=== PATIENT | female | born 1950 | race Caucasian/White ===

== ENCOUNTER 2016-03-12 18:57 | Emergency (ER) | payer OTHER ==
[~2016-03-12 18:57] MED LIST: ACET30TAB PO; ALBU83IN INH; ALEV220T26 PO; CEFD1CAP8 PO; CEFT500T3 PO; CELE20TA PO; CELE40TA PO; CIPR250T3 PO; COLA100C PO; DEXA2TA PO; DEXA4TA PO; DULC100C PO; DUONSOL NEB; FOLI1TAB2 PO; LACT20EL PO; LISI20TA PO; LOPR1TAB6 PO; MIRA3350 PO; MUCI600T34 PO; NICO14PA TD; ONDA1TAB16 PO; PRED10TA PO; PRED20TA PO; PROC5TA PO; SYMB16INH INH; TRAM50TA2 PO; TYLE500T78 PO; VITMTA PO; XANA0.5T PO
[2016-03-12] MEDS ORDERED: IPRATROPIUM 0.5MG/ALBUTEROL 2.5MG INH SOL UD 3ML (DUONEB)(J7620) As Ordered ONE (20:01)
[2016-03-12 20:05] LABS: MEAN CORPUSCULAR HEMOGLOBIN 28.1 pg (27.0-33.0); MEAN CORPUSCULAR HGB CONC 31.6 g/dl (32.0-36.5); MEAN CORPUSCULAR VOLUME 88.9 fl (80.0-96.0); PLATELET COUNT, AUTOMATED 160 k/mm3 (150-450); RED CELL DISTRIBUTION WIDTH 17.4 % (11.5-14.5); WHITE BLOOD COUNT 2.6 K/mm3 (4.0-10.0)
[2016-03-12 20:14] LABS: VENOUS BASE EXCESS 7.9 (-2.0-2.0); VENOUS O2 SATURATION 56.7 % (60.0-80.0); VENOUS PARTIAL PRESSURE CO2 63.6 mmHg (38.0-50.0); VENOUS PARTIAL PRESSURE O2 29.9 mmHg (30.0-50.0); VENOUS STANDARD HCO3 30.9 MEQ/L; VENOUS TOTAL CO2 36.8 MEQ/L (24.0-28.0)
[2016-03-12 20:26] LABS: ANION GAP 4 MEQ/L (8-16); BLOOD UREA NITROGEN 13 MG/DL (7-18); CALCIUM LEVEL 8.6 MG/DL (8.8-10.2); CARBON DIOXIDE LEVEL 37 MEQ/L (21-32); CHLORIDE LEVEL 97 MEQ/L (98-107); CREATININE FOR GFR 0.88 MG/DL (0.55-1.02); GLOMERULAR FILTRATION RATE > 60.0 (>45); GLUCOSE, FASTING 135 MG/DL (80-110); POTASSIUM SERUM 4.2 MEQ/L (3.5-5.1); SODIUM LEVEL 138 MEQ/L (136-145)
[2016-03-12 20:45] LABS: BASOPHILS 2 % (0-4); EOSINOPHILS 3 % (0-5)
[2016-03-12 20:47] LABS: ANISOCYTOSIS 1+; HYPOCHROMASIA 1+
--- NOTE | 2016-03-12 20:48 | REP ---
Clinical: Acute shortness of breath. Comparison: 01/28/2016. Findings: Diffuse chronic changes are appreciated. Superimposed coarsened vasculature and interstitial markings suggest the possibility of bronchitis as well as pulmonary venous congestion. Trace basilar atelectasis cannot be excluded. No definite effusion. No pneumothorax. Mediastinum and cardiac silhouette are stable. [id number] with tip in the SVC unchanged. Skeletal structures intact. Impression: Diffusely increased coarsened markings and pulmonary vasculature. Differential diagnosis includes bronchitis as well as pulmonary venous congestion and correlation is recommended. Signed by Christiano Joseph MD 03/12/2016 08:39 P
[2016-03-12] MEDS ORDERED: ISOVUE-370 76% 100ML VIAL (Q9967) As Ordered ONE (22:39)
--- NOTE | 2016-03-12 23:10 | REPUSA ---
CT angiogram of the chest Clinical statement: Chest pain and shortness of breath. Technique: Multiple axial CT images were obtained from the thoracic inlet through the upper abdomen a fter a bolus administration of nonionic intravenous contrast. Coronal and sagittal reconstructions we re also obtained. No comparison is available. Findings: The pulmonary arteries are well-opacified with contrast, with no intraluminal filling defec ts to suggest embolism. The thoracic aorta is unremarkable. Thyroid gland is within normal limits. Th ere is no thoracic lymphadenopathy. There are no pericardial or pleural effusions. There is mild diff use emphysema. There is left apical pleural thickening noted. Limited imaging of the upper abdomen is unremarkable. There are no suspicious osseous lesions. Impression: 1. No evidence of pulmonary embolism. 2. No acute infiltrates. 3. Mild diffuse emphysema. 4. Left apical pleural thickening.
--- NOTE | 2016-03-13 00:42 | EDDOCDS ---
Physician Documentation [facility] Name: Gypsy Mae Age: 66 yrs Sex: Female : 1950 Arrival Date: 03/12/2016 Time: 18:57 Bed 11 Private MD: Melva Monsivais Disposition: 03/13/16 00:20 Discharged to Home/Self Care. Impression: Generalized anxiety disorder, Shortness of breath. - Condition is Stable. - Discharge Instructions: Panic Attacks, Generalized Anxiety Disorder, Panic Attacks, [id number]. - Medication Reconciliation, Local Pharmacy Hours form. - Follow up: Melva Monsivais; When: As needed; Reason: Continuance of care. - Problem is an acute exacerbation. - Symptoms have improved. Historical: - Allergies: Latex (Hives); - Home Meds: 1. acetaminophen-codeine 300-30 mg Oral tab Q6h PRN 2. albuterol sulfate 2.5 mg /3 mL (0.083 %) Inhl nebu 3 mL 3 times per day 3. alprazolam 0.5 mg Oral tab 4 x's a day 4. Compazine 10 mg Oral tab prn 5. dexamethasone 4 mg Oral tab take 2 tabs bid day before and day after chemo 6. folic acid 1 mg Oral tab 1 tab once daily 7. lactulose 20 gram/30 mL Oral soln bid prn constipation 8. metoprolol tartrate 50 mg Oral tab once daily 9. ondansetron HCl 8 mg Oral tab every 8 hours 10. Symbicort 160-4.5 mcg/actuation inhalation HFAA 2 puffs 2 times per day 11. tramadol 50 mg Oral tab 1 tab every 6 hours - PMHx: Cancer, Lung - Left; Cancer, Lung - Right; Emphysema; - PSHx: bronchscopy; Hysterectomy; Appendectomy; Tonsillectomy; LLL resection; infusaport insertion; right eye tumor removal; - Social history: Smoking status: Patient uses tobacco products, light tobacco smoker. No barriers to communication noted, The patient speaks fluent Slovak, Speaks appropriately for age. - Family history: Not pertinent. - : The pt / caregiver states he / she is not on anticoagulants. Home medication list is obtained from [employer] import data. - Exposure Risk Screening:: None identified. Vital Signs: 03/12 18:59 BP 101 / 53; Pulse 116; Resp 18 S; Temp 99.6(O); Pulse Ox 84% on 4 lpm NC; Weight 45.36 gr2 kg / 100 lbs (R); Height 5 ft. 0 in. (152.40 cm) (R); Pain 08/04; 19:09 BP 126 / 68 (auto/); mlc 19:24 Pulse 106 MON; Pulse Ox 97% ; mlc 19:24 BP 126 / 62 (auto/); mlc 19:39 Pulse 106 MON; Pulse Ox 98% ; mlc 19:39 BP 123 / 62 (auto/); mlc 19:54 BP 110 / 64 (auto/); mlc 19:54 Pulse 102 MON; Pulse Ox 99% on 3 lpm NC; mlc 20:09 Pulse 104 MON; Pulse Ox 100% ; mlc 20:09 BP 118 / 71 (auto/); mlc 20:24 Pulse 106 MON; Pulse Ox 100% ; mlc 20:24 BP 124 / 72 (auto/); mlc 20:39 Pulse 114 MON; Pulse Ox 98% ; mlc 20:39 BP 122 / 66 (auto/); mlc 20:54 Pulse 118 MON; Pulse Ox 96% ; mlc 20:54 BP 128 / 68 (auto/); mlc 21:09 BP 122 / 64 (auto/); mlc 21:09 Pulse 118 MON; Pulse Ox 95% ; mlc 21:24 Pulse 120 MON; Pulse Ox 94% ; mlc 21:24 BP 110 / 59 (auto/); mlc 21:39 BP 110 / 63 (auto/); mlc 21:39 Pulse 114 MON; Pulse Ox 94% ; mlc 21:54 Pulse 112 MON; Pulse Ox 95% ; mlc 21:54 BP 110 / 55 (auto/); mlc 22:09 Pulse 112 MON; Pulse Ox 95% ; mlc 22:09 BP 98 / 58 (auto/); mlc 22:24 Pulse 110 MON; Pulse Ox 97% ; mlc 22:24 BP 111 / 64 (auto/); mlc 22:39 Pulse 108 MON; Pulse Ox 99% ; mlc 22:39 BP 110 / 63 (auto/); mlc 22:54 BP 123 / 64 (auto/); mlc 22:58 Pulse 104 MON; Pulse Ox 98% ; mlc 23:09 Pulse 102 MON; Pulse Ox 98% ; mlc 23:09 BP 112 / 57 (auto/); mlc 23:24 Pulse 104 MON; Pulse Ox 98% ; mlc 23:24 BP 121 / 66 (auto/); mlc 23:39 Pulse 106 MON; Pulse Ox 98% ; mlc 23:39 BP 113 / 65 (auto/); mlc 23:54 BP 116 / 64 (auto/); mlc 23:54 Pulse 106 MON; Pulse Ox 98% ; mlc 03/13 00:27 BP 108 / 62; Pulse 107; Resp 18; Temp 99.5(O); Pulse Ox 97% on 3 lpm NC; Pain 0/10; kyle 03/12 18:59 Body Mass Index 19.53 (45.36 kg, 152.40 cm) gr2 MDM: 03/12 19:40 -Blood Culture (Adults Only), peripheral from different site, or from device/port/PICC mm11 etc. if present ordered. 19:40 Scarfer/Pulse Ox/q 15 min VS ordered. mm11 19:40 IV Saline Lock ordered. mm11 19:40 Oxygen at 4L/Min NC or Home dosage ordered. mm11 19:40 Rhythm Strip to chart ordered. mm11 19:40 Call Respiratory ordered. mm11 19:40 Albuterol-Ipratropium 1 neb Nebulizer every 20 minutes x3 ordered. mm11 19:41 -Blood Culture Ordered. EDMS 19:41 B-Type Natiuretic Peptide Ordered. EDMS 19:41 Basic Metabolic Profile Ordered. EDMS 19:41 CBC with Diff Ordered. EDMS 19:41 Cardiac Injury Profile Ordered. EDMS 19:41 Troponin Ordered. EDMS 19:41 Venous Blood Gas (large pea green tube on ice) Ordered. EDMS 19:41 Chest, 1 View Ordered. EDMS 19:42 Call Respiratory complete. ml3 19:42 ECG WITH READING ER PHYS+CARDIAG ordered. EDMS 19:43 -Blood Culture (Adults Only), peripheral from different site, or from device/port/PICC ml3 etc. if present complete. 19:45 BLOOD CULTURES Ordered. EDMS 20:08 DIFFERENTIAL NO CHARGE Ordered. EDMS 20:08 PLATELET ESTIMATE Ordered. EDMS 20:10 Financial registration complete. gjb 20:13 [facility] Payment Agreement was scanned into [employer] and attached to record. gjb 20:33 Basic Metabolic Profile Reviewed. mm11 20:33 CBC with Diff Reviewed. mm11 20:33 Cardiac Injury Profile Reviewed. mm11 20:33 Venous Blood Gas (large pea green tube on ice) Reviewed. mm11 20:33 B-Type Natiuretic Peptide Reviewed. mm11 20:33 Troponin Reviewed. mm11 20:55 CT Chest Angio R/O PE Ordered. EDFL 22:15 CBC with Diff Reviewed. mm11 22:15 PLATELET ESTIMATE Reviewed. mm11 22:15 Chest, 1 View Reviewed. mm11 03/13 00:19 CT Chest Angio R/O PE Reviewed. mm11 Administered Medications: 03/12 19:40 CANCELLED (Other Intervention Used): Albuterol-Ipratropium 3 ml Inhalation once mm11 20:07 Drug: Albuterol-Ipratropium 1 neb [ipratropium-albuterol 0.5 mg-3 mg(2.5 mg base)/3 mL lf2 nebulization soln (1 neb)] Route: Nebulizer; 20:11 Drug: Albuterol-Ipratropium 1 neb [ipratropium-albuterol 0.5 mg-3 mg(2.5 mg base)/3 mL lf2 nebulization soln (1 neb)] Route: Nebulizer; 20:20 Drug: Albuterol-Ipratropium 1 neb [ipratropium-albuterol 0.5 mg-3 mg(2.5 mg base)/3 mL lf2 nebulization soln (1 neb)] Route: Nebulizer; Signatures: Dispatcher [employer] EDMS Deejay Espinal RN RN cz Lopresti, Mary-Elizabeth, Channel Supervisor Unit ml3 Jose David Rouse, DO mm11 Tasha Quiñones RN RN mlc Beck, Gabriela gjb Mary Saleem RT lf2 The chart was reviewed and I authenticate all verbal orders and agree with the evaluation and treatment provided.Corrections: (The following items were deleted from the chart) 19:40 19:40 Albuterol-Ipratropium 3 ml Inhalation once ordered. 11 mm11 Attachments: 20:13 [facility] Payment Agreement jose MTDD
--- NOTE | 2016-03-13 00:42 | EDDOCDS ---
Nurse's Notes [facility] Name: Gypsy Mae Age: 66 yrs Sex: Female : 1950 Arrival Date: 03/12/2016 Time: 18:57 Bed 11 Private MD: Melva Monsivais Diagnosis: Generalized anxiety disorder;Shortness of breath Presentation: 03/12 19:08 Presenting complaint: Patient states: increased difficulty breathing since this cz afternoon but has been getting worse over the last few days pt had chemo last put on a steroid which she has finished saw her primary for f/u this past saturday. Adult Sepsis Screening: The patient does not have new or worsening altered mentation. Patient's respiratory rate is less than 22. Systolic blood pressure is greater than 100. Patient has a qSOFA score of 0- Negative Sepsis Screen. Suicide/Homicide risk assessment- the patient denies having any suicidal and/or homicidal ideations and does not present with any other emotional, behavioral or mental health complaints. Status: Patient is not a press service reader or dependent. Transition of care: patient was not received from another setting of care. 19:08 Acuity: CHAO Level 3 cz 19:08 Method Of Arrival: Walkin/Carried/Asstd cz Triage Assessment: 19:12 General: Appears cachectic. Pain: Location: abdomen Pain currently is 7 out of 10 on a cz pain scale. HIV screening NA for this visit Offered previously. Historical: - Allergies: Latex (Hives); - Home Meds: 1. acetaminophen-codeine 300-30 mg Oral tab Q6h PRN 2. albuterol sulfate 2.5 mg /3 mL (0.083 %) Inhl nebu 3 mL 3 times per day 3. alprazolam 0.5 mg Oral tab 4 x's a day 4. Compazine 10 mg Oral tab prn 5. dexamethasone 4 mg Oral tab take 2 tabs bid day before and day after chemo 6. folic acid 1 mg Oral tab 1 tab once daily 7. lactulose 20 gram/30 mL Oral soln bid prn constipation 8. metoprolol tartrate 50 mg Oral tab once daily 9. ondansetron HCl 8 mg Oral tab every 8 hours 10. Symbicort 160-4.5 mcg/actuation inhalation HFAA 2 puffs 2 times per day 11. tramadol 50 mg Oral tab 1 tab every 6 hours - PMHx: Cancer, Lung - Left; Cancer, Lung - Right; Emphysema; - PSHx: bronchscopy; Hysterectomy; Appendectomy; Tonsillectomy; LLL resection; infusaport insertion; right eye tumor removal; - Social history: Smoking status: Patient uses tobacco products, light tobacco smoker. No barriers to communication noted, The patient speaks fluent Latvian, Speaks appropriately for age. - Family history: Not pertinent. - : The pt / caregiver states he / she is not on anticoagulants. Home medication list is obtained from [employer]. - Exposure Risk Screening:: None identified. Screenin/17 00:01 Screening information is obtained from the patient, family members. Fall risk: No risks mlc identified. Assistance ADL's: requires no assistance with activities of daily living. Abuse/DV Screen: The patient / caregiver reports he/she is: not in a situation that causes fear, pain or injury. Nutritional screening: No deficits noted. home support is adequate. 00:40 Advance Directives: There is no active DNR order. mlc Assessment: 03/12 19:30 General: Appears in no apparent distress, comfortable, Behavior is appropriate for age, mlc cooperative. Pain: Denies pain. Neurological: Level of Consciousness is awake, alert, Oriented to person, place, time. Cardiovascular: Heart tones S1 S2 present Chest pain is denied. Respiratory: Airway is patent Respiratory effort is even, unlabored, Respiratory pattern is regular, Breath sounds with wheezes expiratory bilaterally. Reports shortness of breath. Derm: Skin is pink, warm & dry. 20:20 Reassessment: Patient appears in no apparent distress at this time. no change since mlc prior. resp easy/unlabored. . 21:11 Reassessment: Patient appears in no apparent distress at this time. Patient states mlc feeling better. pt reports feeling better after breathing tx. resp easy/unlabored. family at bedside. . 22:59 General: Appears in no apparent distress, comfortable, pt returned from CT, tolerated mlc well. . 03/13 00:01 Reassessment: Patient appears in no apparent distress at this time. General: Appears mlc comfortable, to be sleeping. Respiratory: Airway is patent Respiratory effort is even, unlabored, Respiratory pattern is regular. 00:40 General: Appears in no apparent distress, comfortable, Behavior is cooperative. mlc Neurological: Level of Consciousness is awake, alert, Oriented to person, place, time. Respiratory: Airway is patent Respiratory effort is even, unlabored, Respiratory pattern is regular. Vital Signs: 03/12 18:59 BP 101 / 53; Pulse 116; Resp 18 S; Temp 99.6(O); Pulse Ox 84% on 4 lpm NC; Weight 45.36 gr2 kg (R); Height 5 ft. 0 in. (152.40 cm) (R); Pain 6/10; 19:09 BP 126 / 68 (auto/); mlc 19:24 Pulse 106 MON; Pulse Ox 97% ; mlc 19:24 BP 126 / 62 (auto/); mlc 19:39 Pulse 106 MON; Pulse Ox 98% ; mlc 19:39 BP 123 / 62 (auto/); mlc 19:54 BP 110 / 64 (auto/); mlc 19:54 Pulse 102 MON; Pulse Ox 99% on 3 lpm NC; mlc 20:09 Pulse 104 MON; Pulse Ox 100% ; mlc 20:09 BP 118 / 71 (auto/); mlc 20:24 Pulse 106 MON; Pulse Ox 100% ; mlc 20:24 BP 124 / 72 (auto/); mlc 20:39 Pulse 114 MON; Pulse Ox 98% ; mlc 20:39 BP 122 / 66 (auto/); mlc 20:54 Pulse 118 MON; Pulse Ox 96% ; mlc 20:54 BP 128 / 68 (auto/); mlc 21:09 BP 122 / 64 (auto/); mlc 21:09 Pulse 118 MON; Pulse Ox 95% ; mlc 21:24 Pulse 120 MON; Pulse Ox 94% ; mlc 21:24 BP 110 / 59 (auto/); mlc 21:39 BP 110 / 63 (auto/); mlc 21:39 Pulse 114 MON; Pulse Ox 94% ; mlc 21:54 Pulse 112 MON; Pulse Ox 95% ; mlc 21:54 BP 110 / 55 (auto/); mlc 22:09 Pulse 112 MON; Pulse Ox 95% ; mlc 22:09 BP 98 / 58 (auto/); mlc 22:24 Pulse 110 MON; Pulse Ox 97% ; mlc 22:24 BP 111 / 64 (auto/); mlc 22:39 Pulse 108 MON; Pulse Ox 99% ; mlc 22:39 BP 110 / 63 (auto/); mlc 22:54 BP 123 / 64 (auto/); mlc 22:58 Pulse 104 MON; Pulse Ox 98% ; mlc 23:09 Pulse 102 MON; Pulse Ox 98% ; mlc 23:09 BP 112 / 57 (auto/); mlc 23:24 Pulse 104 MON; Pulse Ox 98% ; mlc 23:24 BP 121 / 66 (auto/); mlc 23:39 Pulse 106 MON; Pulse Ox 98% ; mlc 23:39 BP 113 / 65 (auto/); mlc 23:54 BP 116 / 64 (auto/); mlc 23:54 Pulse 106 MON; Pulse Ox 98% ; mlc 03/13 00:27 BP 108 / 62; Pulse 107; Resp 18; Temp 99.5(O); Pulse Ox 97% on 3 lpm NC; Pain 0/10; kyle 03/12 18:59 Body Mass Index 19.53 (45.36 kg, 152.40 cm) gr2 Vitals: 03/12 18:59 Log In Time: March 12, 2016 at 18:59. RN notified that patient meets Red Flag gr2 criteria. ED Course: 18:58 Patient visited by Paulette Reid. gr2 18:58 Patient moved to Waiting gr2 18:59 Unknown Pcp is Private Physician. gr2 18:59 Melva Monsivais is Private Physician. gr2 19:05 Tasha Quiñones,RN is Primary Nurse. kcs 19:05 Patient moved to 11 kcs 19:07 Patient visited by Paulette Reid. gr2 19:10 Triage Initiated cz 19:11 Pt greeted and oriented to ED. Patient advised of names of staff involved in care, kyle location of call diaz, wait times and NPO status. Accompanied by Family Member, Patient has correct armband on for positive identification. Placed in gown. Bed in low position. Call light in reach. Side rails up X2. quality assurance monitor on. Pulse ox on. NIBP on. 19:13 Patient visited by Alhaji Chan PCA. kb5 19:30 Jose David Rouse DO is Attending Physician. mm11 19:30 Patient visited by Jose David Rouse DO. mm11 19:39 Patient visited by Jose David Rouse DO. mm11 19:49 Patient moved to Radiology lino 19:49 EKG done. (by ED staff). Reviewed by Jose David Rouse DO. kyle 19:50 Patient visited by Mireya Hancock PCA. kyle 19:57 Troponin Sent. tm5 19:57 Cardiac Injury Profile Sent. tm5 19:57 CBC with Diff Sent. tm5 19:57 Basic Metabolic Profile Sent. tm5 19:57 B-Type Natiuretic Peptide Sent. tm5 19:57 -Blood Culture Sent. tm5 19:58 Venous Blood Gas (large pea green tube on ice) Sent. tm5 19:58 Inserted saline lock: 18 gauge in left antecubital area and blood collected. The tm5 patient tolerated the procedure well. Labs/Blood culture drawn. 20:11 Patient visited by Alhaji Chan PCA. kb5 20:13 [facility] Payment Agreement was scanned into [employer] and attached to record. gjb 20:18 Patient moved to 11 lino 20:52 BLOOD CULTURES Sent. kyle 20:52 DIFFERENTIAL NO CHARGE Sent. kyle 20:52 Labs/Blood culture drawn. kyle 21:12 Patient visited by Tasha Quiñones RN. mlc 21:25 Chest, 1 View Returned. EDMS 22:12 Patient visited by Mireya Hancock PCA. kyle 23:00 Patient visited by Tasha Quiñones RN. mlc 23:00 The patient / caregiver is instructed regarding the plan of care and ED course. mlc 01 00:02 Patient visited by Tasha Quiñones RN. mlc 00:02 CT Chest Angio R/O PE Returned. EDMS 00:20 Melva Monsivais is Referral Physician. mm11 00:27 Patient visited by Mireya Hancock PCA. kyle 00:40 Discontinued IV lock intact, bleeding controlled, pressure dressing applied, No mlc redness/swelling at site. No procedures done that require assistance. Administered Medications: 03/12 19:40 CANCELLED (Other Intervention Used): Albuterol-Ipratropium 3 ml Inhalation once mm11 20:07 Drug: Albuterol-Ipratropium 1 neb [ipratropium-albuterol 0.5 mg-3 mg(2.5 mg base)/3 mL lf2 nebulization soln (1 neb)] Route: Nebulizer; 20:11 Drug: Albuterol-Ipratropium 1 neb [ipratropium-albuterol 0.5 mg-3 mg(2.5 mg base)/3 mL lf2 nebulization soln (1 neb)] Route: Nebulizer; 20:20 Drug: Albuterol-Ipratropium 1 neb [ipratropium-albuterol 0.5 mg-3 mg(2.5 mg base)/3 mL lf2 nebulization soln (1 neb)] Route: Nebulizer; RT: 20:07 Initial Med Neb Given as ordered Patient was instructed and evaluated on procedure lf2 Patient tolerated procedure well without adverse effect. O2 via nasal cannula \T\ 2L/min. Respiratory: Respiratory effort is even, unlabored, relaxed, Respiratory pattern is regular symmetrical, Breath sounds are coarse bilaterally. Breath sounds are diminished bilaterally. Breath sounds with wheezes bilaterally. at expiration. 20:11 Subsequent Med Neb Given as ordered Patient tolerated procedure well without adverse lf2 effect. O2 via nasal cannula \T\ 2L/min. Respiratory: Breath sounds are diminished bilaterally. Breath sounds with wheezes bilaterally. at expiration. 20:20 Subsequent Med Neb Given as ordered Patient tolerated procedure well without adverse lf2 effect. O2 via nasal cannula \T\ 2L/min. Respiratory: Breath sounds are coarse bilaterally. Breath sounds with wheezes bilaterally. at expiration. Order Results: Lab Order: B-Type Natiuretic Peptide; SPEC'M 03/12/16 19:54 Test: BRAIN NATRIURETIC PEPTIDE; Value: 99.6; Range: <100; Units: PG/ML; Status: F Lab Order: Basic Metabolic Profile; SPEC'M 03/12/16 19:54 Test: GLUCOSE, FASTING; Value: 135; Range: 80-110; Abnormal: Above high normal; Units: MG/DL; Status: F Test: BLOOD UREA NITROGEN; Value: 13; Range: 7-18; Units: MG/DL; Status: F Test: CREATININE FOR GFR; Value: 0.88; Range: 0.55-1.02; Units: MG/DL; Status: F Test: GLOMERULAR FILTRATION RATE; Value: > 60.0; Range: >45; Status: F Test: SODIUM LEVEL; Value: 138; Range: 136-145; Units: MEQ/L; Status: F Test: POTASSIUM SERUM; Value: 4.2; Range: 3.5-5.1; Units: MEQ/L; Status: F Test: CHLORIDE LEVEL; Value: 97; Range: 98-107; Abnormal: Below low normal; Units: MEQ/L; Status: F Test: CARBON DIOXIDE LEVEL; Value: 37; Range: 21-32; Abnormal: Above high normal; Units: MEQ/L; Status: F Test: ANION GAP; Value: 4; Range: 8-16; Abnormal: Below low normal; Units: MEQ/L; Status: F Test: CALCIUM LEVEL; Value: 8.6; Range: 8.8-10.2; Abnormal: Below low normal; Units: MG/DL; Status: F Test Note: ; Units are mL/min/1.73 m2 Chronic Kidney Disease Staging per NKF: Stage I & II GFR >=60 Normal to Mildly Decreased Stage III GFR 30-59 Moderately Decreased Stage IV GFR 15-29 Severely Decreased Stage V GFR <15 Very Little GFR Left ESRD GFR <15 on STEEL FITTER Lab Order: CBC with Diff; SPEC'M 03/12/16 19:54 Test: WHITE BLOOD COUNT; Value: 2.6; Range: 4.0-10.0; Abnormal: Below low normal; Units: K/mm3; Status: F Test: RED BLOOD COUNT; Value: 3.17; Range: 4.00-5.40; Abnormal: Below low normal; Units: M/mm3; Status: F Test: HEMOGLOBIN; Value: 8.9; Range: 12.0-16.0; Abnormal: Below low normal; Units: g/dl; Status: F Test: HEMATOCRIT; Value: 28.2; Range: 36.0-47.0; Abnormal: Below low normal; Units: %; Status: F Test: MEAN CORPUSCULAR VOLUME; Value: 88.9; Range: 80.0-96.0; Units: fl; Status: F Test: MEAN CORPUSCULAR HEMOGLOBIN; Value: 28.1; Range: 27.0-33.0; Units: pg; Status: F Test: MEAN CORPUSCULAR HGB CONC; Value: 31.6; Range: 32.0-36.5; Abnormal: Below low normal; Units: g/dl; Status: F Test: RED CELL DISTRIBUTION WIDTH; Value: 17.4; Range: 11.5-14.5; Abnormal: Above high normal; Units: %; Status: F Test: PLATELET COUNT, AUTOMATED; Value: 160; Range: 150-450; Units: k/mm3; Status: F Test: NEUTROPHILS; Value: 58; Range: 35-75; Units: %; Status: F Test: LYMPHOCYTES; Value: 16; Range: 16-52; Units: %; Status: F Test: MONOCYTES; Value: 20; Range: 0-8; Abnormal: Above high normal; Units: %; Status: F Test: EOSINOPHILS; Value: 3; Range: 0-5; Units: %; Status: F Test: BASOPHILS; Value: 2; Range: 0-4; Units: %; Status: F Test: ATYPICAL LYMPH; Value: 1; Range: 0-5; Units: %; Status: F Test: HYPOCHROMASIA; Value: 1+; Status: F Test: BASOPHILIC STIPPLING; Value: 1+; Status: F Test: ANISOCYTOSIS; Value: 1+; Status: F Lab Order: Cardiac Injury Profile; SPEC'M 03/12/16 19:54 Test: CPK CREATINE PHOSPHOKINASE; Value: 16; Range: 26-192; Abnormal: Below low normal; Units: U/L; Status: F Test: CK-MB VALUE MASS; Value: 1.0; Range: 0.0-3.6; Units: NG/ML; Status: F Test: MB/CK RELATIVE INDEX; Value: 6.25; Range: < OR =4; Abnormal: Above high normal; Status: F Test Note: ; DIAGNOSIS CRITERIA MMB ng/ml Relative Index (RI) NON-AMI < or = 5 N/A MEEHAN ZONE > 5 < or = 4 AMI > 5 > 4 Lab Order: Troponin; SPEC'M 03/12/16 19:54 Test: TROPONIN I; Value: < 0.02; Range: < 0.10; Units: NG/ML; Status: F Test Note: ; Troponin I Reference Interval for [employer] LOCI: 99th Percentile= 0.00-0.045 ng/ml Risk Stratification: <= 0.10 ng/ml Decreased Risk for Adverse Clinical Events. 0.10-1.50 ng/ml Increased Risk for Adverse Clinical Events. Evaluation of additional criterion and/or repeat testing in 2-6 hours is suggested to rule out myocardial damage. >= 1.50 ng/ml Indicative of Myocardial Injury. Lab Order: Venous Blood Gas (large pea green tube on ice); SPEC'M 03/12/16 19:54 Test: VENOUS PH; Value: 7.357; Range: 7.330-7.430; Units: UNITS; Status: F Test: VENOUS PARTIAL PRESSURE CO2; Value: 63.6; Range: 38.0-50.0; Abnormal: Above high normal; Units: mmHg; Status: F Test: VENOUS PARTIAL PRESSURE O2; Value: 29.9; Range: 30.0-50.0; Abnormal: Below low normal; Units: mmHg; Status: F Test: VENOUS TOTAL CO2; Value: 36.8; Range: 24.0-28.0; Abnormal: Above high normal; Units: MEQ/L; Status: F Test: VENOUS HCO3; Value: 34.9; Range: 23.0-27.0; Abnormal: Above high normal; Units: MEQ/L; Status: F Test: VENOUS BASE EXCESS; Value: 7.9; Range: -2.0-2.0; Abnormal: Above high normal; Status: F Test: VENOUS STANDARD HCO3; Value: 30.9; Units: MEQ/L; Status: F Test: VENOUS O2 SATURATION; Value: 56.7; Range: 60.0-80.0; Abnormal: Below low normal; Units: %; Status: F Lab Order: PLATELET ESTIMATE; SPEC'M 03/12/16 19:54 Test: PLATELET ESTIMATE; Value: NORMAL; Range: NORMAL; Status: F Radiology Order: Chest, 1 View Test: Chest, 1 View REASON FOR EXAMINATION: Shortness of Breath; Clinical: Acute shortness of breath.; ; Comparison: 01/28/2016.; ; Findings:; Diffuse chronic changes are appreciated. Superimposed coarsened vasculature and; interstitial markings suggest the possibility of bronchitis as well as pulmonary; venous congestion. Trace basilar atelectasis cannot be excluded. No definite; effusion. No pneumothorax. Mediastinum and cardiac silhouette are stable.; [id number] with tip in the SVC unchanged. Skeletal structures intact.; ; Impression:; Diffusely increased coarsened markings and pulmonary vasculature. Differential; diagnosis includes bronchitis as well as pulmonary venous congestion and; correlation is recommended.; ; ; Signed by; Christiano Joseph MD 03/12/2016 08:39 P; Radiology Order: CT Chest Angio R/O PE Test: CT Chest Angio R/O PE REASON FOR EXAMINATION: Shortness of Breath; ; CT angiogram of the chest; Clinical statement: Chest pain and shortness of breath.; Technique: Multiple axial CT images were obtained from the thoracic inlet through the upper abdomen a; fter a bolus administration of nonionic intravenous contrast. Coronal and sagittal reconstructions we; re also obtained.; No comparison is available.; Findings: The pulmonary arteries are well-opacified with contrast, with no intraluminal filling defec; ts to suggest embolism. The thoracic aorta is unremarkable. Thyroid gland is within normal limits. Th; ere is no thoracic lymphadenopathy. There are no pericardial or pleural effusions. There is mild diff; use emphysema. There is left apical pleural thickening noted. Limited imaging of the upper abdomen is; unremarkable. There are no suspicious osseous lesions.; Impression:; 1. No evidence of pulmonary embolism.; 2. No acute infiltrates.; 3. Mild diffuse emphysema.; 4. Left apical pleural thickening.; ; Outcome: 23:00 CT Study completed. mlc 03/13 00:20 Discharge ordered by Provider. mm11 00:40 Discharge Assessment: Patient awake, alert and oriented x 3. No cognitive and/or mlc functional deficits noted. Patient verbalized understanding of disposition instructions. patient administered narcotics - no. The following High Risk Discharge criteria are identified: None. Discharged to home with family. Condition: good Condition: stable. Discharge instructions given to patient, Instructed on discharge instructions, Demonstrated understanding of instructions, Pt was receptive of discharge instructions/ teaching. Property sent home with patient. 00:41 Patient left the ED. mlc Signatures: Dispatcher [employer] EDMS Janie De Los Santos RN Deejay Dickson RN RN cz Bartlett, Floyd fab Bancroft, Kristopher, FINE ARTS INSTRUCTOR FINE ARTS INSTRUCTOR [email or web address] Jose David Rouse, DO mm11 Mireya Hancock, FINE ARTS INSTRUCTOR FINE ARTS INSTRUCTOR Paulette Ernst gr2 Tasha Quiñones RN RN Saniya Jones Lisa,RT RT lf2 Deanna Travis,LENNY GALVEZ tm5 MTDD
--- NOTE | 2016-03-14 07:51 | ECGEPIP ---
Stationary ECG Study [facility] - ED Test Date: 2016-03-12 Pat Name: MARIUM LEE Department: Room: - Gender: F Javascript Web Developer: susannah : 1950 Requested By: ZEENAT Alvarez Order Number: [id number] Reading MD: Jordyn Yañez Measurements Intervals [address] Rate: 102 P: 76 OH: 148 QRS: 78 QRSD: 93 T: 65 QT: 338 QTc: 442 Interpretive Statements SINUS TACHYCARDIA ABNORMAL RHYTHM ECG NSTTW ABNORMALITY BASELINE ARTIFACT LIMITS INTERPRETATION INCREASED RATE 01/28/16 Electronically Signed On 03-14-2016 7:51:20 EST by Jordyn Yañez
--- NOTE | 2016-03-15 01:42 | EDDOCDS ---
Nurse's Notes [facility] Name: Gypsy Mae Age: 66 yrs Sex: Female : 1950 Arrival Date: 03/12/2016 Time: 18:57 Bed 11 Private MD: Melva Monsivais Diagnosis: Generalized anxiety disorder;Shortness of breath Presentation: 03/12 19:08 Presenting complaint: Patient states: increased difficulty breathing since this cz afternoon but has been getting worse over the last few days pt had chemo last put on a steroid which she has finished saw her primary for f/u this past saturday. Adult Sepsis Screening: The patient does not have new or worsening altered mentation. Patient's respiratory rate is less than 22. Systolic blood pressure is greater than 100. Patient has a qSOFA score of 0- Negative Sepsis Screen. Suicide/Homicide risk assessment- the patient denies having any suicidal and/or homicidal ideations and does not present with any other emotional, behavioral or mental health complaints. Status: Patient is not a medical service technician or dependent. Transition of care: patient was not received from another setting of care. 19:08 Acuity: CHAO Level 3 cz 19:08 Method Of Arrival: Walkin/Carried/Asstd cz Triage Assessment: 19:12 General: Appears cachectic. Pain: Location: abdomen Pain currently is 7 out of 10 on a cz pain scale. HIV screening NA for this visit Offered previously. Historical: - Allergies: Latex (Hives); - Home Meds: 1. acetaminophen-codeine 300-30 mg Oral tab Q6h PRN 2. albuterol sulfate 2.5 mg /3 mL (0.083 %) Inhl nebu 3 mL 3 times per day 3. alprazolam 0.5 mg Oral tab 4 x's a day 4. Compazine 10 mg Oral tab prn 5. dexamethasone 4 mg Oral tab take 2 tabs bid day before and day after chemo 6. folic acid 1 mg Oral tab 1 tab once daily 7. lactulose 20 gram/30 mL Oral soln bid prn constipation 8. metoprolol tartrate 50 mg Oral tab once daily 9. ondansetron HCl 8 mg Oral tab every 8 hours 10. Symbicort 160-4.5 mcg/actuation inhalation HFAA 2 puffs 2 times per day 11. tramadol 50 mg Oral tab 1 tab every 6 hours - PMHx: Cancer, Lung - Left; Cancer, Lung - Right; Emphysema; - PSHx: bronchscopy; Hysterectomy; Appendectomy; Tonsillectomy; LLL resection; infusaport insertion; right eye tumor removal; - Social history: Smoking status: Patient uses tobacco products, light tobacco smoker. No barriers to communication noted, The patient speaks fluent Estonian, Speaks appropriately for age. - Family history: Not pertinent. - : The pt / caregiver states he / she is not on anticoagulants. Home medication list is obtained from [employer] import data. - Exposure Risk Screening:: None identified. Screenin/17 00:01 Screening information is obtained from the patient, family members. Fall risk: No risks mlc identified. Assistance ADL's: requires no assistance with activities of daily living. Abuse/DV Screen: The patient / caregiver reports he/she is: not in a situation that causes fear, pain or injury. Nutritional screening: No deficits noted. home support is adequate. 00:40 Advance Directives: There is no active DNR order. mlc Assessment: 03/12 19:30 General: Appears in no apparent distress, comfortable, Behavior is appropriate for age, mlc cooperative. Pain: Denies pain. Neurological: Level of Consciousness is awake, alert, Oriented to person, place, time. Cardiovascular: Heart tones S1 S2 present Chest pain is denied. Respiratory: Airway is patent Respiratory effort is even, unlabored, Respiratory pattern is regular, Breath sounds with wheezes expiratory bilaterally. Reports shortness of breath. Derm: Skin is pink, warm & dry. 20:20 Reassessment: Patient appears in no apparent distress at this time. no change since mlc prior. resp easy/unlabored. . 21:11 Reassessment: Patient appears in no apparent distress at this time. Patient states mlc feeling better. pt reports feeling better after breathing tx. resp easy/unlabored. family at bedside. . 22:59 General: Appears in no apparent distress, comfortable, pt returned from CT, tolerated mlc well. . 03/13 00:01 Reassessment: Patient appears in no apparent distress at this time. General: Appears mlc comfortable, to be sleeping. Respiratory: Airway is patent Respiratory effort is even, unlabored, Respiratory pattern is regular. 00:40 General: Appears in no apparent distress, comfortable, Behavior is cooperative. mlc Neurological: Level of Consciousness is awake, alert, Oriented to person, place, time. Respiratory: Airway is patent Respiratory effort is even, unlabored, Respiratory pattern is regular. Vital Signs: 03/12 18:59 BP 101 / 53; Pulse 116; Resp 18 S; Temp 99.6(O); Pulse Ox 84% on 4 lpm NC; Weight 45.36 gr2 kg (R); Height 5 ft. 0 in. (152.40 cm) (R); Pain 6/10; 19:09 BP 126 / 68 (auto/); mlc 19:24 Pulse 106 MON; Pulse Ox 97% ; mlc 19:24 BP 126 / 62 (auto/); mlc 19:39 Pulse 106 MON; Pulse Ox 98% ; mlc 19:39 BP 123 / 62 (auto/); mlc 19:54 BP 110 / 64 (auto/); mlc 19:54 Pulse 102 MON; Pulse Ox 99% on 3 lpm NC; mlc 20:09 Pulse 104 MON; Pulse Ox 100% ; mlc 20:09 BP 118 / 71 (auto/); mlc 20:24 Pulse 106 MON; Pulse Ox 100% ; mlc 20:24 BP 124 / 72 (auto/); mlc 20:39 Pulse 114 MON; Pulse Ox 98% ; mlc 20:39 BP 122 / 66 (auto/); mlc 20:54 Pulse 118 MON; Pulse Ox 96% ; mlc 20:54 BP 128 / 68 (auto/); mlc 21:09 BP 122 / 64 (auto/); mlc 21:09 Pulse 118 MON; Pulse Ox 95% ; mlc 21:24 Pulse 120 MON; Pulse Ox 94% ; mlc 21:24 BP 110 / 59 (auto/); mlc 21:39 BP 110 / 63 (auto/); mlc 21:39 Pulse 114 MON; Pulse Ox 94% ; mlc 21:54 Pulse 112 MON; Pulse Ox 95% ; mlc 21:54 BP 110 / 55 (auto/); mlc 22:09 Pulse 112 MON; Pulse Ox 95% ; mlc 22:09 BP 98 / 58 (auto/); mlc 22:24 Pulse 110 MON; Pulse Ox 97% ; mlc 22:24 BP 111 / 64 (auto/); mlc 22:39 Pulse 108 MON; Pulse Ox 99% ; mlc 22:39 BP 110 / 63 (auto/); mlc 22:54 BP 123 / 64 (auto/); mlc 22:58 Pulse 104 MON; Pulse Ox 98% ; mlc 23:09 Pulse 102 MON; Pulse Ox 98% ; mlc 23:09 BP 112 / 57 (auto/); mlc 23:24 Pulse 104 MON; Pulse Ox 98% ; mlc 23:24 BP 121 / 66 (auto/); mlc 23:39 Pulse 106 MON; Pulse Ox 98% ; mlc 23:39 BP 113 / 65 (auto/); mlc 23:54 BP 116 / 64 (auto/); mlc 23:54 Pulse 106 MON; Pulse Ox 98% ; mlc 03/13 00:27 BP 108 / 62; Pulse 107; Resp 18; Temp 99.5(O); Pulse Ox 97% on 3 lpm NC; Pain 0/10; kyle 03/12 18:59 Body Mass Index 19.53 (45.36 kg, 152.40 cm) gr2 Vitals: 03/12 18:59 Log In Time: March 12, 2016 at 18:59. RN notified that patient meets Red Flag gr2 criteria. ED Course: 18:58 Patient visited by Paulette Reid. gr2 18:58 Patient moved to Waiting gr2 18:59 Unknown Pcp is Private Physician. gr2 18:59 Melva Monsivais is Private Physician. gr2 19:05 Tasha Quiñones,RN is Primary Nurse. kcs 19:05 Patient moved to 11 kcs 19:07 Patient visited by Paulette Reid. gr2 19:10 Triage Initiated cz 19:11 Pt greeted and oriented to ED. Patient advised of names of staff involved in care, kyle location of call diaz, wait times and NPO status. Accompanied by Family Member, Patient has correct armband on for positive identification. Placed in gown. Bed in low position. Call light in reach. Side rails up X2. k 9 police officer on. Pulse ox on. NIBP on. 19:13 Patient visited by Alhaji Chan PCA. kb5 19:30 Zeenat Rouse DO is Attending Physician. mm11 19:30 Patient visited by Zeenat Rouse DO. mm11 19:39 Patient visited by Zeenat Rouse DO. mm11 19:49 Patient moved to Radiology lino 19:49 EKG done. (by ED staff). Reviewed by Zeenat Rouse DO. kyle 19:50 Patient visited by Mireya Hancock PCA. kyle 19:57 Troponin Sent. tm5 19:57 Cardiac Injury Profile Sent. tm5 19:57 CBC with Diff Sent. tm5 19:57 Basic Metabolic Profile Sent. tm5 19:57 B-Type Natiuretic Peptide Sent. tm5 19:57 -Blood Culture Sent. tm5 19:58 Venous Blood Gas (large pea green tube on ice) Sent. tm5 19:58 Inserted saline lock: 18 gauge in left antecubital area and blood collected. The tm5 patient tolerated the procedure well. Labs/Blood culture drawn. 20:11 Patient visited by Alhaji Chan PCA. kb5 20:13 [facility] Payment Agreement was scanned into [employer] and attached to record. gjb 20:18 Patient moved to 11 lino 20:52 BLOOD CULTURES Sent. kyle 20:52 DIFFERENTIAL NO CHARGE Sent. kyle 20:52 Labs/Blood culture drawn. kyle 21:12 Patient visited by Tasha Quiñones RN. mlc 21:25 Chest, 1 View Returned. EDMS 22:12 Patient visited by Mireya Hancock PCA. kyle 23:00 Patient visited by Tasha Quiñones RN. mlc 23:00 The patient / caregiver is instructed regarding the plan of care and ED course. mlc 01 00:02 Patient visited by Tasha Quiñones RN. mlc 00:02 CT Chest Angio R/O PE Returned. EDMS 00:20 Melva Monsivais is Referral Physician. mm11 00:27 Patient visited by Mireya Hancock PCA. kyle 00:40 Discontinued IV lock intact, bleeding controlled, pressure dressing applied, No mlc redness/swelling at site. No procedures done that require assistance. 12:00 T-Sheet-- Draft Copy was scanned into [employer] and attached to record. gb 12:00 ECG/EKG was scanned into [employer] and attached to record. gb 12:00 Radiology Report was scanned into [employer] and attached to record. gb 03/14 08:22 EKG-ADULT Returned. EDMS Administered Medications: 03/12 19:40 CANCELLED (Other Intervention Used): Albuterol-Ipratropium 3 ml Inhalation once mm11 20:07 Drug: Albuterol-Ipratropium 1 neb [ipratropium-albuterol 0.5 mg-3 mg(2.5 mg base)/3 mL lf2 nebulization soln (1 neb)] Route: Nebulizer; 20:11 Drug: Albuterol-Ipratropium 1 neb [ipratropium-albuterol 0.5 mg-3 mg(2.5 mg base)/3 mL lf2 nebulization soln (1 neb)] Route: Nebulizer; 20:20 Drug: Albuterol-Ipratropium 1 neb [ipratropium-albuterol 0.5 mg-3 mg(2.5 mg base)/3 mL lf2 nebulization soln (1 neb)] Route: Nebulizer; RT: 20:07 Initial Med Neb Given as ordered Patient was instructed and evaluated on procedure lf2 Patient tolerated procedure well without adverse effect. O2 via nasal cannula \T\ 2L/min. Respiratory: Respiratory effort is even, unlabored, relaxed, Respiratory pattern is regular symmetrical, Breath sounds are coarse bilaterally. Breath sounds are diminished bilaterally. Breath sounds with wheezes bilaterally. at expiration. 20:11 Subsequent Med Neb Given as ordered Patient tolerated procedure well without adverse lf2 effect. O2 via nasal cannula \T\ 2L/min. Respiratory: Breath sounds are diminished bilaterally. Breath sounds with wheezes bilaterally. at expiration. 20:20 Subsequent Med Neb Given as ordered Patient tolerated procedure well without adverse lf2 effect. O2 via nasal cannula \T\ 2L/min. Respiratory: Breath sounds are coarse bilaterally. Breath sounds with wheezes bilaterally. at expiration. Order Results: Lab Order: -Blood Culture; SPEC'M 03/12/16 19:54 Test: BLOOD CULTURE; Value: No growth after 24 hours . All specimens observed; Status: F Test: BLOOD CULTURE; Value: for 5 days. Results final at that time.; Status: F Test: BLOOD CULTURE; Value: No Growth after 48 hours. All Specimens observed; Status: F Test: BLOOD CULTURE; Value: for 7 days. Results final at that time.; Status: F Lab Order: B-Type Natiuretic Peptide; SPEC'M 03/12/16 19:54 Test: BRAIN NATRIURETIC PEPTIDE; Value: 99.6; Range: <100; Units: PG/ML; Status: F Lab Order: Basic Metabolic Profile; SPEC'M 03/12/16 19:54 Test: GLUCOSE, FASTING; Value: 135; Range: 80-110; Abnormal: Above high normal; Units: MG/DL; Status: F Test: BLOOD UREA NITROGEN; Value: 13; Range: 7-18; Units: MG/DL; Status: F Test: CREATININE FOR GFR; Value: 0.88; Range: 0.55-1.02; Units: MG/DL; Status: F Test: GLOMERULAR FILTRATION RATE; Value: > 60.0; Range: >45; Status: F Test: SODIUM LEVEL; Value: 138; Range: 136-145; Units: MEQ/L; Status: F Test: POTASSIUM SERUM; Value: 4.2; Range: 3.5-5.1; Units: MEQ/L; Status: F Test: CHLORIDE LEVEL; Value: 97; Range: 98-107; Abnormal: Below low normal; Units: MEQ/L; Status: F Test: CARBON DIOXIDE LEVEL; Value: 37; Range: 21-32; Abnormal: Above high normal; Units: MEQ/L; Status: F Test: ANION GAP; Value: 4; Range: 8-16; Abnormal: Below low normal; Units: MEQ/L; Status: F Test: CALCIUM LEVEL; Value: 8.6; Range: 8.8-10.2; Abnormal: Below low normal; Units: MG/DL; Status: F Test Note: ; Units are mL/min/1.73 m2 Chronic Kidney Disease Staging per NKF: Stage I & II GFR >=60 Normal to Mildly Decreased Stage III GFR 30-59 Moderately Decreased Stage IV GFR 15-29 Severely Decreased Stage V GFR <15 Very Little GFR Left ESRD GFR <15 on PUG [employer]PER[employer] HELPER Lab Order: CBC with Diff; SPEC'M 03/12/16 19:54 Test: WHITE BLOOD COUNT; Value: 2.6; Range: 4.0-10.0; Abnormal: Below low normal; Units: K/mm3; Status: F Test: RED BLOOD COUNT; Value: 3.17; Range: 4.00-5.40; Abnormal: Below low normal; Units: M/mm3; Status: F Test: HEMOGLOBIN; Value: 8.9; Range: 12.0-16.0; Abnormal: Below low normal; Units: g/dl; Status: F Test: HEMATOCRIT; Value: 28.2; Range: 36.0-47.0; Abnormal: Below low normal; Units: %; Status: F Test: MEAN CORPUSCULAR VOLUME; Value: 88.9; Range: 80.0-96.0; Units: fl; Status: F Test: MEAN CORPUSCULAR HEMOGLOBIN; Value: 28.1; Range: 27.0-33.0; Units: pg; Status: F Test: MEAN CORPUSCULAR HGB CONC; Value: 31.6; Range: 32.0-36.5; Abnormal: Below low normal; Units: g/dl; Status: F Test: RED CELL DISTRIBUTION WIDTH; Value: 17.4; Range: 11.5-14.5; Abnormal: Above high normal; Units: %; Status: F Test: PLATELET COUNT, AUTOMATED; Value: 160; Range: 150-450; Units: k/mm3; Status: F Test: NEUTROPHILS; Value: 58; Range: 35-75; Units: %; Status: F Test: LYMPHOCYTES; Value: 16; Range: 16-52; Units: %; Status: F Test: MONOCYTES; Value: 20; Range: 0-8; Abnormal: Above high normal; Units: %; Status: F Test: EOSINOPHILS; Value: 3; Range: 0-5; Units: %; Status: F Test: BASOPHILS; Value: 2; Range: 0-4; Units: %; Status: F Test: ATYPICAL LYMPH; Value: 1; Range: 0-5; Units: %; Status: F Test: HYPOCHROMASIA; Value: 1+; Status: F Test: BASOPHILIC STIPPLING; Value: 1+; Status: F Test: ANISOCYTOSIS; Value: 1+; Status: F Lab Order: Cardiac Injury Profile; SPEC'M 03/12/16 19:54 Test: CPK CREATINE PHOSPHOKINASE; Value: 16; Range: 26-192; Abnormal: Below low normal; Units: U/L; Status: F Test: CK-MB VALUE MASS; Value: 1.0; Range: 0.0-3.6; Units: NG/ML; Status: F Test: MB/CK RELATIVE INDEX; Value: 6.25; Range: < OR =4; Abnormal: Above high normal; Status: F Test Note: ; DIAGNOSIS CRITERIA MMB ng/ml Relative Index (RI) NON-AMI < or = 5 N/A MEEHAN ZONE > 5 < or = 4 AMI > 5 > 4 Lab Order: Troponin; [facility] 03/12/16 19:54 Test: TROPONIN I; Value: < 0.02; Range: < 0.10; Units: NG/ML; Status: F Test Note: ; Troponin I Reference Interval for Siemens Nebo LOCI: 99th Percentile= 0.00-0.045 ng/ml Risk Stratification: <= 0.10 ng/ml Decreased Risk for Adverse Clinical Events. 0.10-1.50 ng/ml Increased Risk for Adverse Clinical Events. Evaluation of additional criterion and/or repeat testing in 2-6 hours is suggested to rule out myocardial damage. >= 1.50 ng/ml Indicative of Myocardial Injury. Lab Order: Venous Blood Gas (large pea green tube on ice); [facility] 03/12/16 19:54 Test: VENOUS PH; Value: 7.357; Range: 7.330-7.430; Units: UNITS; Status: F Test: VENOUS PARTIAL PRESSURE CO2; Value: 63.6; Range: 38.0-50.0; Abnormal: Above high normal; Units: mmHg; Status: F Test: VENOUS PARTIAL PRESSURE O2; Value: 29.9; Range: 30.0-50.0; Abnormal: Below low normal; Units: mmHg; Status: F Test: VENOUS TOTAL CO2; Value: 36.8; Range: 24.0-28.0; Abnormal: Above high normal; Units: MEQ/L; Status: F Test: VENOUS HCO3; Value: 34.9; Range: 23.0-27.0; Abnormal: Above high normal; Units: MEQ/L; Status: F Test: VENOUS BASE EXCESS; Value: 7.9; Range: -2.0-2.0; Abnormal: Above high normal; Status: F Test: VENOUS STANDARD HCO3; Value: 30.9; Units: MEQ/L; Status: F Test: VENOUS O2 SATURATION; Value: 56.7; Range: 60.0-80.0; Abnormal: Below low normal; Units: %; Status: F Lab Order: BLOOD CULTURES; [facility] 03/12/16 20:51 Test: BLOOD CULTURE; Value: No growth after 24 hours . All specimens observed; Status: F Test: BLOOD CULTURE; Value: for 5 days. Results final at that time.; Status: F Test: BLOOD CULTURE; Value: No Growth after 48 hours. All Specimens observed; Status: F Test: BLOOD CULTURE; Value: for 7 days. Results final at that time.; Status: F Lab Order: PLATELET ESTIMATE; SPEC'M 03/12/16 19:54 Test: PLATELET ESTIMATE; Value: NORMAL; Range: NORMAL; Status: F Radiology Order: Chest, 1 View Test: Chest, 1 View REASON FOR EXAMINATION: Shortness of Breath; Clinical: Acute shortness of breath.; ; Comparison: 01/28/2016.; ; Findings:; Diffuse chronic changes are appreciated. Superimposed coarsened vasculature and; interstitial markings suggest the possibility of bronchitis as well as pulmonary; venous congestion. Trace basilar atelectasis cannot be excluded. No definite; effusion. No pneumothorax. Mediastinum and cardiac silhouette are stable.; Imivae-Z-Jxno with tip in the SVC unchanged. Skeletal structures intact.; ; Impression:; Diffusely increased coarsened markings and pulmonary vasculature. Differential; diagnosis includes bronchitis as well as pulmonary venous congestion and; correlation is recommended.; ; ; Signed by; Christiano Joseph MD 03/12/2016 08:39 P; Radiology Order: EKG-ADULT Test: EKG-ADULT REASON FOR EXAMINATION: Shortness of Breath; Stationary ECG Study; [facility] - ED; ; Test Date: 2016-03-12; Pat Name: GYPSY MAE Department:; Room: -; Gender: F Summer Associate: susannah; : 1950 Requested By: ZEENAT Alvarez; Order Number: [id number] Latasha MD: Jordyn Yañez; Measurements; Intervals Clarence; Rate: 102 P: 76; GA: 148 QRS: 78; QRSD: 93 T: 65; QT: 338; QTc: 442; Interpretive Statements; SINUS TACHYCARDIA; ABNORMAL RHYTHM ECG; NSTTW ABNORMALITY; BASELINE ARTIFACT LIMITS INTERPRETATION; INCREASED RATE 01/28/16; Electronically Signed On 03-14-2016 7:51:20 EST by Jordyn Yañez; Radiology Order: CT Chest Angio R/O PE Test: CT Chest Angio R/O PE REASON FOR EXAMINATION: Shortness of Breath; ; CT angiogram of the chest; Clinical statement: Chest pain and shortness of breath.; Technique: Multiple axial CT images were obtained from the thoracic inlet through the upper abdomen a; fter a bolus administration of nonionic intravenous contrast. Coronal and sagittal reconstructions we; re also obtained.; No comparison is available.; Findings: The pulmonary arteries are well-opacified with contrast, with no intraluminal filling defec; ts to suggest embolism. The thoracic aorta is unremarkable. Thyroid gland is within normal limits. Th; ere is no thoracic lymphadenopathy. There are no pericardial or pleural effusions. There is mild diff; use emphysema. There is left apical pleural thickening noted. Limited imaging of the upper abdomen is; unremarkable. There are no suspicious osseous lesions.; Impression:; 1. No evidence of pulmonary embolism.; 2. No acute infiltrates.; 3. Mild diffuse emphysema.; 4. Left apical pleural thickening.; ; Outcome: 23:00 CT Study completed. [facility] [place] 03/13 00:20 Discharge ordered by Provider. mm11 00:40 Discharge Assessment: Patient awake, alert and oriented x 3. No cognitive and/or mlc functional deficits noted. Patient verbalized understanding of disposition instructions. patient administered narcotics - no. The following High Risk Discharge criteria are identified: None. Discharged to home with family. Condition: good Condition: stable. Discharge instructions given to patient, Instructed on discharge instructions, Demonstrated understanding of instructions, Pt was receptive of discharge instructions/ teaching. Property sent home with patient. 00:41 Patient left the ED. [facility] [place] Signatures: Dispatcher [employer] EDMS Janie De Los Santos RN RN kcs Zecher, Calvin, RN RN cz Bartlett, Floyd fab Barnhardt, Gloria, Reg Reg gb Alhaji Chan, [employer]CHO[employer] ENGLISH TEACHER [employer] ENGLISH TEACHER kb5 Zeenat Rouse, DO mm11 Mireya Hancock, [employer]CHO[employer] ENGLISH TEACHER [employer] ENGLISH TEACHER Paulette Ernst gr2 Tasha Quiñones RN RN mlc Beck, Gabriela gjb Frederick, Lisa,RT RT lf2 Deanna Travis RN RN tm5 Chart Complete MTDD
--- NOTE | 2016-03-15 01:42 | EDDOCDS ---
Physician Documentation [facility] Name: Gypsy Mae Age: 66 yrs Sex: Female : 1950 Arrival Date: 03/12/2016 Time: 18:57 Bed 11 Private MD: Melva Monsivais Disposition: 03/13/16 00:20 Discharged to Home/Self Care. Impression: Generalized anxiety disorder, Shortness of breath. - Condition is Stable. - Discharge Instructions: Panic Attacks, Generalized Anxiety Disorder, Panic Attacks, [id number]. - Medication Reconciliation, Local Pharmacy Hours form. - Follow up: Melva Monsivais; When: As needed; Reason: Continuance of care. - Problem is an acute exacerbation. - Symptoms have improved. Historical: - Allergies: Latex (Hives); - Home Meds: 1. acetaminophen-codeine 300-30 mg Oral tab Q6h PRN 2. albuterol sulfate 2.5 mg /3 mL (0.083 %) Inhl nebu 3 mL 3 times per day 3. alprazolam 0.5 mg Oral tab 4 x's a day 4. Compazine 10 mg Oral tab prn 5. dexamethasone 4 mg Oral tab take 2 tabs bid day before and day after chemo 6. folic acid 1 mg Oral tab 1 tab once daily 7. lactulose 20 gram/30 mL Oral soln bid prn constipation 8. metoprolol tartrate 50 mg Oral tab once daily 9. ondansetron HCl 8 mg Oral tab every 8 hours 10. Symbicort 160-4.5 mcg/actuation inhalation HFAA 2 puffs 2 times per day 11. tramadol 50 mg Oral tab 1 tab every 6 hours - PMHx: Cancer, Lung - Left; Cancer, Lung - Right; Emphysema; - PSHx: bronchscopy; Hysterectomy; Appendectomy; Tonsillectomy; LLL resection; infusaport insertion; right eye tumor removal; - Social history: Smoking status: Patient uses tobacco products, light tobacco smoker. No barriers to communication noted, The patient speaks fluent Mac[place], Speaks appropriately for age. - Family history: Not pertinent. - : The pt / caregiver states he / she is not on anticoagulants. Home medication list is obtained from [employer] import data. - Exposure Risk Screening:: None identified. Vital Signs: 03/12 18:59 BP 101 / 53; Pulse 116; Resp 18 S; Temp 99.6(O); Pulse Ox 84% on 4 lpm NC; Weight 45.36 gr2 kg / 100 lbs (R); Height 5 ft. 0 in. (152.40 cm) (R); Pain 08/04; 19:09 BP 126 / 68 (auto/); mlc 19:24 Pulse 106 MON; Pulse Ox 97% ; mlc 19:24 BP 126 / 62 (auto/); mlc 19:39 Pulse 106 MON; Pulse Ox 98% ; mlc 19:39 BP 123 / 62 (auto/); mlc 19:54 BP 110 / 64 (auto/); mlc 19:54 Pulse 102 MON; Pulse Ox 99% on 3 lpm NC; mlc 20:09 Pulse 104 MON; Pulse Ox 100% ; mlc 20:09 BP 118 / 71 (auto/); mlc 20:24 Pulse 106 MON; Pulse Ox 100% ; mlc 20:24 BP 124 / 72 (auto/); mlc 20:39 Pulse 114 MON; Pulse Ox 98% ; mlc 20:39 BP 122 / 66 (auto/); mlc 20:54 Pulse 118 MON; Pulse Ox 96% ; mlc 20:54 BP 128 / 68 (auto/); mlc 21:09 BP 122 / 64 (auto/); mlc 21:09 Pulse 118 MON; Pulse Ox 95% ; mlc 21:24 Pulse 120 MON; Pulse Ox 94% ; mlc 21:24 BP 110 / 59 (auto/); mlc 21:39 BP 110 / 63 (auto/); mlc 21:39 Pulse 114 MON; Pulse Ox 94% ; mlc 21:54 Pulse 112 MON; Pulse Ox 95% ; mlc 21:54 BP 110 / 55 (auto/); mlc 22:09 Pulse 112 MON; Pulse Ox 95% ; mlc 22:09 BP 98 / 58 (auto/); mlc 22:24 Pulse 110 MON; Pulse Ox 97% ; mlc 22:24 BP 111 / 64 (auto/); mlc 22:39 Pulse 108 MON; Pulse Ox 99% ; mlc 22:39 BP 110 / 63 (auto/); mlc 22:54 BP 123 / 64 (auto/); mlc 22:58 Pulse 104 MON; Pulse Ox 98% ; mlc 23:09 Pulse 102 MON; Pulse Ox 98% ; mlc 23:09 BP 112 / 57 (auto/); mlc 23:24 Pulse 104 MON; Pulse Ox 98% ; mlc 23:24 BP 121 / 66 (auto/); mlc 23:39 Pulse 106 MON; Pulse Ox 98% ; mlc 23:39 BP 113 / 65 (auto/); mlc 23:54 BP 116 / 64 (auto/); mlc 23:54 Pulse 106 MON; Pulse Ox 98% ; mlc 03/13 00:27 BP 108 / 62; Pulse 107; Resp 18; Temp 99.5(O); Pulse Ox 97% on 3 lpm NC; Pain 0/10; kyle 03/12 18:59 Body Mass Index 19.53 (45.36 kg, 152.40 cm) gr2 MDM: 03/12 19:40 -Blood Culture (Adults Only), peripheral from different site, or from device/port/PICC mm11 etc. if present ordered. 19:40 Automatic Fancy Machine Operator/Pulse Ox/q 15 min VS ordered. mm11 19:40 IV Saline Lock ordered. mm11 19:40 Oxygen at 4L/Min NC or Home dosage ordered. mm11 19:40 Rhythm Strip to chart ordered. mm11 19:40 Call Respiratory ordered. mm11 19:40 Albuterol-Ipratropium 1 neb Nebulizer every 20 minutes x3 ordered. mm11 19:41 -Blood Culture Ordered. EDMS 19:41 B-Type Natiuretic Peptide Ordered. EDMS 19:41 Basic Metabolic Profile Ordered. EDMS 19:41 CBC with Diff Ordered. EDMS 19:41 Cardiac Injury Profile Ordered. EDMS 19:41 Troponin Ordered. EDMS 19:41 Venous Blood Gas (large pea green tube on ice) Ordered. EDMS 19:41 Chest, 1 View Ordered. EDMS 19:42 Call Respiratory complete. ml3 19:42 ECG WITH READING ER PHYS+CARDIAG ordered. EDMS 19:43 -Blood Culture (Adults Only), peripheral from different site, or from device/port/PICC ml3 etc. if present complete. 19:45 BLOOD CULTURES Ordered. EDMS 20:08 DIFFERENTIAL NO CHARGE Ordered. EDMS 20:08 PLATELET ESTIMATE Ordered. EDMS 20:10 Financial registration complete. gjb 20:13 [place] Payment Agreement was scanned into [email or web address] and attached to record. gjb 20:33 Basic Metabolic Profile Reviewed. mm11 20:33 CBC with Diff Reviewed. mm11 20:33 Cardiac Injury Profile Reviewed. mm11 20:33 Venous Blood Gas (large pea green tube on ice) Reviewed. mm11 20:33 B-Type Natiuretic Peptide Reviewed. mm11 20:33 Troponin Reviewed. mm11 20:55 CT Chest Angio R/O PE Ordered. EDMS 22:15 CBC with Diff Reviewed. mm11 22:15 PLATELET ESTIMATE Reviewed. mm11 22:15 Chest, 1 View Reviewed. mm11 03/13 00:19 CT Chest Angio R/O PE Reviewed. mm11 12:00 T-Sheet-- Draft Copy was scanned into [email or web address] and attached to record. 12:00 ECG/EKG was scanned into [email or web address] and attached to record. gb 12:00 Radiology Report was scanned into [email or web address] and attached to record. gb 20:08 -Blood Culture Reviewed. ml Administered Medications: 03/12 19:40 CANCELLED (Other Intervention Used): Albuterol-Ipratropium 3 ml Inhalation once mm11 20:07 Drug: Albuterol-Ipratropium 1 neb [ipratropium-albuterol 0.5 mg-3 mg(2.5 mg base)/3 mL lf2 nebulization soln (1 neb)] Route: Nebulizer; 20:11 Drug: Albuterol-Ipratropium 1 neb [ipratropium-albuterol 0.5 mg-3 mg(2.5 mg base)/3 mL lf2 nebulization soln (1 neb)] Route: Nebulizer; 20:20 Drug: Albuterol-Ipratropium 1 neb [ipratropium-albuterol 0.5 mg-3 mg(2.5 mg base)/3 mL lf2 nebulization soln (1 neb)] Route: Nebulizer; Signatures: Dispatcher [employer] EDMS Alexi Ho MD MD ml Zecher, Calvin, RN RN cz Barnhardt, Gloria, Brian Frazier, Real Estate Representative Unit ml3 Jose David Rouse DO DO mm11 Tasha Quiñones RN RN mlc Beck, Gabriela gjb Mary Saleem RT lf2 The chart was reviewed and I authenticate all verbal orders and agree with the evaluation and treatment provided.Corrections: (The following items were deleted from the chart) 19:40 19:40 Albuterol-Ipratropium 3 ml Inhalation once ordered. mm11 mm11 Attachments: 20:13 [facility] Payment Agreement gjb 03/13 12:00 T-Sheet-- Draft Copy gb 12:00 ECG/EKG gb Chart Complete MTDD
--- NOTE | 2016-03-15 01:42 | EDDOCDS ---
Physician Documentation [facility] Name: Gypsy Mae Age: 66 yrs Sex: Female : 1950 Arrival Date: 03/12/2016 Time: 18:57 Bed 11 Private MD: Melva Monsivais Disposition: 03/13/16 00:20 Discharged to Home/Self Care. Impression: Generalized anxiety disorder, Shortness of breath. - Condition is Stable. - Discharge Instructions: Panic Attacks, Generalized Anxiety Disorder, Panic Attacks, [id number]. - Medication Reconciliation, Local Pharmacy Hours form. - Follow up: Melva Monsivais; When: As needed; Reason: Continuance of care. - Problem is an acute exacerbation. - Symptoms have improved. Historical: - Allergies: Latex (Hives); - Home Meds: 1. acetaminophen-codeine 300-30 mg Oral tab Q6h PRN 2. albuterol sulfate 2.5 mg /3 mL (0.083 %) Inhl nebu 3 mL 3 times per day 3. alprazolam 0.5 mg Oral tab 4 x's a day 4. Compazine 10 mg Oral tab prn 5. dexamethasone 4 mg Oral tab take 2 tabs bid day before and day after chemo 6. folic acid 1 mg Oral tab 1 tab once daily 7. lactulose 20 gram/30 mL Oral soln bid prn constipation 8. metoprolol tartrate 50 mg Oral tab once daily 9. ondansetron HCl 8 mg Oral tab every 8 hours 10. Symbicort 160-4.5 mcg/actuation inhalation HFAA 2 puffs 2 times per day 11. tramadol 50 mg Oral tab 1 tab every 6 hours - PMHx: Cancer, Lung - Left; Cancer, Lung - Right; Emphysema; - PSHx: bronchscopy; Hysterectomy; Appendectomy; Tonsillectomy; LLL resection; infusaport insertion; right eye tumor removal; - Social history: Smoking status: Patient uses tobacco products, light tobacco smoker. No barriers to communication noted, The patient speaks fluent Latvian, Speaks appropriately for age. - Family history: Not pertinent. - : The pt / caregiver states he / she is not on anticoagulants. Home medication list is obtained from [employer] import data. - Exposure Risk Screening:: None identified. Vital Signs: 03/12 18:59 BP 101 / 53; Pulse 116; Resp 18 S; Temp 99.6(O); Pulse Ox 84% on 4 lpm NC; Weight 45.36 gr2 kg / 100 lbs (R); Height 5 ft. 0 in. (152.40 cm) (R); Pain 08/04; 19:09 BP 126 / 68 (auto/); mlc 19:24 Pulse 106 MON; Pulse Ox 97% ; mlc 19:24 BP 126 / 62 (auto/); mlc 19:39 Pulse 106 MON; Pulse Ox 98% ; mlc 19:39 BP 123 / 62 (auto/); mlc 19:54 BP 110 / 64 (auto/); mlc 19:54 Pulse 102 MON; Pulse Ox 99% on 3 lpm NC; mlc 20:09 Pulse 104 MON; Pulse Ox 100% ; mlc 20:09 BP 118 / 71 (auto/); mlc 20:24 Pulse 106 MON; Pulse Ox 100% ; mlc 20:24 BP 124 / 72 (auto/); mlc 20:39 Pulse 114 MON; Pulse Ox 98% ; mlc 20:39 BP 122 / 66 (auto/); mlc 20:54 Pulse 118 MON; Pulse Ox 96% ; mlc 20:54 BP 128 / 68 (auto/); mlc 21:09 BP 122 / 64 (auto/); mlc 21:09 Pulse 118 MON; Pulse Ox 95% ; mlc 21:24 Pulse 120 MON; Pulse Ox 94% ; mlc 21:24 BP 110 / 59 (auto/); mlc 21:39 BP 110 / 63 (auto/); mlc 21:39 Pulse 114 MON; Pulse Ox 94% ; mlc 21:54 Pulse 112 MON; Pulse Ox 95% ; mlc 21:54 BP 110 / 55 (auto/); mlc 22:09 Pulse 112 MON; Pulse Ox 95% ; mlc 22:09 BP 98 / 58 (auto/); mlc 22:24 Pulse 110 MON; Pulse Ox 97% ; mlc 22:24 BP 111 / 64 (auto/); mlc 22:39 Pulse 108 MON; Pulse Ox 99% ; mlc 22:39 BP 110 / 63 (auto/); mlc 22:54 BP 123 / 64 (auto/); mlc 22:58 Pulse 104 MON; Pulse Ox 98% ; mlc 23:09 Pulse 102 MON; Pulse Ox 98% ; mlc 23:09 BP 112 / 57 (auto/); mlc 23:24 Pulse 104 MON; Pulse Ox 98% ; mlc 23:24 BP 121 / 66 (auto/); mlc 23:39 Pulse 106 MON; Pulse Ox 98% ; mlc 23:39 BP 113 / 65 (auto/); mlc 23:54 BP 116 / 64 (auto/); mlc 23:54 Pulse 106 MON; Pulse Ox 98% ; mlc 03/13 00:27 BP 108 / 62; Pulse 107; Resp 18; Temp 99.5(O); Pulse Ox 97% on 3 lpm NC; Pain 0/10; kyle 03/12 18:59 Body Mass Index 19.53 (45.36 kg, 152.40 cm) gr2 MDM: 03/12 19:40 -Blood Culture (Adults Only), peripheral from different site, or from device/port/PICC mm11 etc. if present ordered. 19:40 Communications Writer/Pulse Ox/q 15 min VS ordered. mm11 19:40 IV Saline Lock ordered. mm11 19:40 Oxygen at 4L/Min NC or Home dosage ordered. mm11 19:40 Rhythm Strip to chart ordered. mm11 19:40 Call Respiratory ordered. mm11 19:40 Albuterol-Ipratropium 1 neb Nebulizer every 20 minutes x3 ordered. mm11 19:41 -Blood Culture Ordered. EDMS 19:41 B-Type Natiuretic Peptide Ordered. EDMS 19:41 Basic Metabolic Profile Ordered. EDMS 19:41 CBC with Diff Ordered. EDMS 19:41 Cardiac Injury Profile Ordered. EDMS 19:41 Troponin Ordered. EDMS 19:41 Venous Blood Gas (large pea green tube on ice) Ordered. EDMS 19:41 Chest, 1 View Ordered. EDMS 19:42 Call Respiratory complete. ml3 19:42 ECG WITH READING ER PHYS+CARDIAG ordered. EDMS 19:43 -Blood Culture (Adults Only), peripheral from different site, or from device/port/PICC ml3 etc. if present complete. 19:45 BLOOD CULTURES Ordered. EDMS 20:08 DIFFERENTIAL NO CHARGE Ordered. EDMS 20:08 PLATELET ESTIMATE Ordered. EDMS 20:10 Financial registration complete. gjb 20:13 [place] [place] was scanned into [employer] and attached to record. gjb 20:33 Basic Metabolic Profile Reviewed. mm11 20:33 CBC with Diff Reviewed. mm11 20:33 Cardiac Injury Profile Reviewed. mm11 20:33 Venous Blood Gas (large pea green tube on ice) Reviewed. mm11 20:33 B-Type Natiuretic Peptide Reviewed. mm11 20:33 Troponin Reviewed. mm11 20:55 CT Chest Angio R/O PE Ordered. EDMS 22:15 CBC with Diff Reviewed. mm11 22:15 PLATELET ESTIMATE Reviewed. mm11 22:15 Chest, 1 View Reviewed. mm11 03/13 00:19 CT Chest Angio R/O PE Reviewed. mm11 12:00 T-Sheet-- Draft Copy was scanned into [employer] and attached to record. 12:00 ECG/EKG was scanned into [employer] and attached to record. gb 12:00 Radiology Report was scanned into [employer] and attached to record. gb 20:08 -Blood Culture Reviewed. ml Administered Medications: 03/12 19:40 CANCELLED (Other Intervention Used): Albuterol-Ipratropium 3 ml Inhalation once mm11 20:07 Drug: Albuterol-Ipratropium 1 neb [ipratropium-albuterol 0.5 mg-3 mg(2.5 mg base)/3 mL lf2 nebulization soln (1 neb)] Route: Nebulizer; 20:11 Drug: Albuterol-Ipratropium 1 neb [ipratropium-albuterol 0.5 mg-3 mg(2.5 mg base)/3 mL lf2 nebulization soln (1 neb)] Route: Nebulizer; 20:20 Drug: Albuterol-Ipratropium 1 neb [ipratropium-albuterol 0.5 mg-3 mg(2.5 mg base)/3 mL lf2 nebulization soln (1 neb)] Route: Nebulizer; Signatures: Dispatcher [employer] EDMS Alexi Ho MD MD ml Zecher, Calvin, RN RN cz Barnhardt, Gloria, Brian Frazier, Slope Runner Unit ml3 Jose David Rouse DO DO mm11 Tasha Quiñones RN RN mlc Beck, Gabriela gjb Mary Saleem RT lf2 The chart was reviewed and I authenticate all verbal orders and agree with the evaluation and treatment provided.Corrections: (The following items were deleted from the chart) 19:40 19:40 Albuterol-Ipratropium 3 ml Inhalation once ordered. mm11 mm11 Attachments: 20:13 [place] [place] Agreement gjb 03/13 12:00 T-Sheet-- Draft Copy gb 12:00 ECG/EKG gb Chart Complete MTDD
== END 2016-03-13 00:41 | disposition home or self-care (01) ==
LOC: M ED 18:57
DX: F41.1 Generalized anxiety disorder (principal); R06.02 Shortness of breath; C34.91 Malignant neoplasm of unspecified part of right bronchus or lung; C34.92 Malignant neoplasm of unspecified part of left bronchus or lung; J43.9 Emphysema, unspecified; Z90.79 Acquired absence of other genital organ(s); Z90.89 Acquired absence of other organs; F17.200 Nicotine dependence, unspecified, uncomplicated; Z79.51 Long term (current) use of inhaled steroids; Z79.899 Other long term (current) drug therapy; Z91.040 Latex allergy status
CPT/HCPCS: 36415; 36600; 71010; 71275; 80048; 82550; 82553; 82803; 83880; 84484; 85025; 87040; 93005; 93041; 94640; 99285; Q9967

== ENCOUNTER 2017-03-20 13:04 | Inpatient (IN) | payer OTHER ==
[2017-03-20] MEDS: PANTOPRAZOLE 40MG INJ (PROTONIX) (C9113) IV (09:00)
[2017-03-20] MEDS: FOLIC ACID 1 MG TAB PO (09:00)
[2017-03-20] MEDS: LISINOPRIL *2.5 MG* TAB PO (09:00)
[2017-03-20] MEDS: CitaloPRAM (CeleXA) 20 MG TAB PO (09:00)
[2017-03-20] MEDS: LACTULOSE 20 GM/30 ML SYRUP UD PO (09:00)
[2017-03-20 14:16] LABS: BASO % 0.4 % (0.0-1.0); HEMATOCRIT 34.3 % (36.0-47.0); HEMOGLOBIN 8.8 g/dl (12.0-16.0); IMMATURE GRANULOCYTE % 0.8 % (0-0); LYMPH # 0.6 10^3/uL (1.5-4.5); LYMPH % 11.6 % (24.0-44.0); MEAN CORPUSCULAR HEMOGLOBIN 22.3 pg (27.0-33.0); MEAN CORPUSCULAR HGB CONC 25.7 g/dl (32.0-36.5); MEAN CORPUSCULAR VOLUME 86.8 fl (80.0-96.0); MONO # 0.2 10^3/uL (0.0-0.8); MONO % 4.5 % (0.0-5.0); NEUTROPHILS # 4.4 10^3/uL (1.8-7.7); NEUTROPHILS % 82.7 % (36.0-66.0); PLATELET COUNT, AUTOMATED 135 10^3/uL (150-450); RED BLOOD COUNT 3.95 10^6/uL (4.00-5.40); WHITE BLOOD COUNT 5.3 10^3/uL (4.0-10.0)
[2017-03-20] MEDS: IPRATROPIUM 0.5MG/ALBUTEROL 2.5MG INH SOL UD 3ML (DUONEB)(J7620) NEB ×4 (14:38→20:00)
[2017-03-20 14:42] LABS: BLOOD UREA NITROGEN 12 MG/DL (7-18); CALCIUM LEVEL 8.7 MG/DL (8.8-10.2); CHLORIDE LEVEL 93 MEQ/L (98-107); CPK CREATINE PHOSPHOKINASE 25 U/L (26-192); CREATININE FOR GFR 0.51 MG/DL (0.55-1.02); GLOMERULAR FILTRATION RATE > 60.0 (>45); GLUCOSE, FASTING 95 MG/DL (70-100); POTASSIUM SERUM 4.8 MEQ/L (3.5-5.1); SODIUM LEVEL 141 MEQ/L (136-145); TROPONIN I 0.02 NG/ML (< 0.10)
[2017-03-20 14:43] LABS: NT-PRO BNP 830 PG/ML (<125)
[2017-03-20 14:43] LABS: CK-MB VALUE MASS 1.3 NG/ML (0.0-3.6)
[2017-03-20 14:58] LABS: CARBON DIOXIDE LEVEL 50 MEQ/L (21-32)
[2017-03-20 15:21] LABS: ABG BASE EXCESS 24.9 (-2.0-2.0); ABG HCO3 57.9 MEQ/L (22.0-26.0); ABG O2 SATURATION 99.3 % (95.0-99.0); ABG STANDARD HCO3 49.6 MEQ/L (22.0-26.0); ABG TOTAL CO2 62.5 MEQ/L (23.0-31.0)
[2017-03-20] MEDS: AZITHROMYCIN INJ 500 MG, VIAL MATE ADAPTER 1 EACH in D5W 250 ML IV (15:24)
[2017-03-20 15:26] LABS: ABG pH (ARTERIAL) 7.203 UNITS (7.350-7.450)
[2017-03-20 15:27] LABS: ABG PARTIAL PRESSURE CO2 150.5 mmHg (35.0-45.0)
[2017-03-20 15:41] LABS: C REACTIVE PROTEIN QUANTITATIV 4.67 MG/DL (0.00-0.30)
[2017-03-20] MEDS ORDERED: BISACODYL 10 MG SUPP PR (16:30)
[2017-03-20] MEDS ORDERED: ONDANSETRON 4MG/2ML VIAL (J2405) IV (16:30)
[2017-03-20] MEDS: CEFTRIAXONE SOD 1 GM in APPROPRIATE DILUENT 1 EA IV (17:01)
[2017-03-20 17:41] LABS: ABG BASE EXCESS 23.6 (-2.0-2.0); ABG HCO3 53.3 MEQ/L (22.0-26.0); ABG O2 SATURATION 96.9 % (95.0-99.0); ABG PARTIAL PRESSURE O2 80.4 mmHg (75.0-100.0); ABG TOTAL CO2 56.5 MEQ/L (23.0-31.0); ABG pH (ARTERIAL) 7.329 UNITS (7.350-7.450)
[2017-03-20 17:42] LABS: ABG PARTIAL PRESSURE CO2 103.7 mmHg (35.0-45.0)
[2017-03-20] MEDS: methylPREDNISolone INJ 125 MG/2 ML VIAL (J2930) IV (19:38)
[2017-03-20] MEDS: NS 1,000 ML IV (19:46)
[2017-03-20] MEDS: MOXIFLOXACIN HCL 400 MG in APPROPRIATE DILUENT 1 EA IV (20:12)
[2017-03-20] MEDS: CARVedilol 3.125 MG TAB PO (20:13)
[2017-03-20] MEDS: ATORVASTATIN 20 MG TAB PO (20:13)
[2017-03-20 20:51] LABS: CPK CREATINE PHOSPHOKINASE 22 U/L (26-192); TROPONIN I 0.02 NG/ML (< 0.10)
[2017-03-20 20:52] LABS: MB/CK RELATIVE INDEX 4.54 (< OR =4)
[2017-03-20] MEDS: SYMBICORT 160/4.5MCG INHALER 6GM INH (21:26)
[2017-03-20] MEDS: HEPARIN SOD (PORCINE) 5000 UNITS/ML VIAL SC (21:32)
[2017-03-21] MEDS: methylPREDNISolone INJ 125 MG/2 ML VIAL (J2930) IV ×3 (01:27→17:22)
[2017-03-21] MEDS: IPRATROPIUM 0.5MG/ALBUTEROL 2.5MG INH SOL UD 3ML (DUONEB)(J7620) NEB ×4 (01:37→19:39)
[2017-03-21 02:45] LABS: CPK CREATINE PHOSPHOKINASE 28 U/L (26-192); MB/CK RELATIVE INDEX 3.57 (< OR =4); TROPONIN I < 0.02 NG/ML (< 0.10)
[2017-03-21 05:43] LABS: ABG BASE EXCESS 19.7 (-2.0-2.0); ABG HCO3 46.9 MEQ/L (22.0-26.0); ABG O2 SATURATION 93.5 % (95.0-99.0); ABG PARTIAL PRESSURE O2 61.9 mmHg (75.0-100.0); ABG STANDARD HCO3 43.7 MEQ/L (22.0-26.0); ABG TOTAL CO2 49.1 MEQ/L (23.0-31.0); ABG pH (ARTERIAL) 7.429 UNITS (7.350-7.450)
[2017-03-21 05:47] LABS: HEMATOCRIT 31.5 % (36.0-47.0); HEMOGLOBIN 8.4 g/dl (12.0-16.0); MEAN CORPUSCULAR HEMOGLOBIN 21.6 pg (27.0-33.0); MEAN CORPUSCULAR HGB CONC 26.7 g/dl (32.0-36.5); MEAN CORPUSCULAR VOLUME 81.2 fl (80.0-96.0); PLATELET COUNT, AUTOMATED 165 10^3/uL (150-450); RED BLOOD COUNT 3.88 10^6/uL (4.00-5.40); RED CELL DISTRIBUTION WIDTH 18.2 % (11.5-14.5); WHITE BLOOD COUNT 4.5 10^3/uL (4.0-10.0)
[2017-03-21 05:48] LABS: ABG PARTIAL PRESSURE CO2 72.4 mmHg (35.0-45.0)
[2017-03-21] MEDS: HEPARIN SOD (PORCINE) 5000 UNITS/ML VIAL SC ×3 (06:01→22:07)
[2017-03-21 06:41] LABS: ALBUMIN 2.6 GM/DL (3.2-5.2); ALKALINE PHOSPHATASE 61 U/L (45-117); ALT/SGPT 28 U/L (12-78); ANION GAP 4 MEQ/L (8-16); AST/SGOT 24 U/L (7-37); BILIRUBIN,TOTAL 0.3 MG/DL (0.2-1.0); BLOOD UREA NITROGEN 17 MG/DL (7-18); CALCIUM LEVEL 8.8 MG/DL (8.8-10.2); CARBON DIOXIDE LEVEL 42 MEQ/L (21-32); CHLORIDE LEVEL 93 MEQ/L (98-107); GLOMERULAR FILTRATION RATE > 60.0 (>45); GLUCOSE, FASTING 107 MG/DL (70-100); MAGNESIUM LEVEL 1.7 MG/DL (1.8-2.4); POTASSIUM SERUM 4.5 MEQ/L (3.5-5.1); SODIUM LEVEL 139 MEQ/L (136-145); TOTAL PROTEIN 6.9 GM/DL (6.4-8.2)
[2017-03-21] MEDS: SYMBICORT 160/4.5MCG INHALER 6GM INH ×2 (07:14→19:39)
[2017-03-21 07:54] LABS: RETIC HEMOGLOBIN EQUIVALENT 20.9 pg (24-36); RETICULOCYTE # 81.6 10^9/L (17-77); RETICULOCYTE % 2.2 % (0.5-1.5)
[2017-03-21] MEDS: LACTULOSE 20 GM/30 ML SYRUP UD PO (08:04)
[2017-03-21] MEDS: MAG SULF 1GM/100ML (MAG RUN) 1 GM in APPROPRIATE DILUENT 1 EA IV (08:04)
[2017-03-21] MEDS: PANTOPRAZOLE 40MG INJ (PROTONIX) (C9113) IV (08:04)
[2017-03-21] MEDS: FOLIC ACID 1 MG TAB PO (08:05)
[2017-03-21] MEDS: CitaloPRAM (CeleXA) 20 MG TAB PO (08:05)
[2017-03-21] MEDS: LISINOPRIL *2.5 MG* TAB PO (08:05)
[2017-03-21] MEDS: CARVedilol 3.125 MG TAB PO ×2 (08:06→21:17)
[2017-03-21] MEDS: MULTIVITAMINS/MINERALS THERAP 1 TAB PO (08:07)
[2017-03-21 08:12] LABS: FERRITIN 21 NG/ML (8-252); IRON (FE) 16 UG/DL (50-170); TOTAL IRON BINDING CAPACITY 320 UG/DL (250-450)
[2017-03-21] MEDS: FERROUS GLUCONATE 324 MG TAB PO (09:00)
[2017-03-21 09:59] LABS: FOLATE 22.2 NG/ML (>5.4); VITAMIN B12 LEVEL 1766 PG/ML (247-911)
[2017-03-21] MEDS: NS 1,000 ML IV (14:10)
[2017-03-21] MEDS: hydrALAZINE INJ 20 MG/ML VIAL IV ×2 (16:20→22:00)
[2017-03-21] MEDS: ALPRAZolam 0.25 MG TAB PO (16:50)
[2017-03-21] MEDS: CEFTRIAXONE SOD 2 GM in APPROPRIATE DILUENT 1 EA IV (17:22)
[2017-03-21] MEDS: MOXIFLOXACIN HCL 400 MG in APPROPRIATE DILUENT 1 EA IV (20:23)
[2017-03-21] MEDS: ATORVASTATIN 20 MG TAB PO (21:16)
[2017-03-22] MEDS: IPRATROPIUM 0.5MG/ALBUTEROL 2.5MG INH SOL UD 3ML (DUONEB)(J7620) NEB ×6 (01:18→20:00)
[2017-03-22] MEDS: methylPREDNISolone INJ 125 MG/2 ML VIAL (J2930) IV ×3 (01:48→17:41)
[2017-03-22] MEDS: ALPRAZolam 0.25 MG TAB PO ×2 (01:57→16:54)
[2017-03-22] MEDS: hydrALAZINE INJ 20 MG/ML VIAL IV ×4 (03:34→21:47)
[2017-03-22] MEDS: NS 1,000 ML IV ×2 (05:11→20:17)
[2017-03-22] MEDS: HEPARIN SOD (PORCINE) 5000 UNITS/ML VIAL SC ×3 (05:11→21:47)
[2017-03-22 05:28] LABS: HEMATOCRIT 32.6 % (36.0-47.0); HEMOGLOBIN 9.2 g/dl (12.0-16.0); MEAN CORPUSCULAR HEMOGLOBIN 21.7 pg (27.0-33.0); MEAN CORPUSCULAR HGB CONC 28.2 g/dl (32.0-36.5); MEAN CORPUSCULAR VOLUME 76.9 fl (80.0-96.0); PLATELET COUNT, AUTOMATED 243 10^3/uL (150-450); RED BLOOD COUNT 4.24 10^6/uL (4.00-5.40); RED CELL DISTRIBUTION WIDTH 18.7 % (11.5-14.5); WHITE BLOOD COUNT 6.8 10^3/uL (4.0-10.0)
[2017-03-22 05:53] LABS: AMMONIA < 10 uMOL/L (<32)
[2017-03-22 06:01] LABS: ALBUMIN 2.9 GM/DL (3.2-5.2); ALBUMIN/GLOBULIN RATIO 0.71 (1.00-1.93); ALKALINE PHOSPHATASE 56 U/L (45-117); ALT/SGPT 32 U/L (12-78); ANION GAP 4 MEQ/L (8-16); AST/SGOT 37 U/L (7-37); BILIRUBIN,TOTAL 0.3 MG/DL (0.2-1.0); BLOOD UREA NITROGEN 21 MG/DL (7-18); C REACTIVE PROTEIN QUANTITATIV 1.46 MG/DL (0.00-0.30); CALCIUM LEVEL 8.5 MG/DL (8.8-10.2); CARBON DIOXIDE LEVEL 36 MEQ/L (21-32); CHLORIDE LEVEL 97 MEQ/L (98-107); CREATININE FOR GFR 0.67 MG/DL (0.55-1.02); GLOMERULAR FILTRATION RATE > 60.0 (>45); GLUCOSE, FASTING 89 MG/DL (70-100); PHOSPHORUS LEVEL 2.4 MG/DL (2.5-4.9); POTASSIUM SERUM 3.9 MEQ/L (3.5-5.1); SODIUM LEVEL 137 MEQ/L (136-145)
[2017-03-22] MEDS: CARVedilol 3.125 MG TAB PO ×2 (08:00→20:19)
[2017-03-22] MEDS: LISINOPRIL *2.5 MG* TAB PO (08:00)
[2017-03-22] MEDS: MULTIVITAMINS/MINERALS THERAP 1 TAB PO (08:00)
[2017-03-22] MEDS: CitaloPRAM (CeleXA) 20 MG TAB PO (08:00)
[2017-03-22] MEDS: LACTULOSE 20 GM/30 ML SYRUP UD PO (08:01)
[2017-03-22] MEDS: FOLIC ACID 1 MG TAB PO (08:01)
[2017-03-22] MEDS: PANTOPRAZOLE 40MG INJ (PROTONIX) (C9113) IV (08:01)
[2017-03-22 08:02] LABS: ABG BASE EXCESS 12.6 (-2.0-2.0); ABG HCO3 37.1 MEQ/L (22.0-26.0); ABG O2 SATURATION 98.1 % (95.0-99.0); ABG PARTIAL PRESSURE CO2 47.3 mmHg (35.0-45.0); ABG STANDARD HCO3 36.4 MEQ/L (22.0-26.0); ABG TOTAL CO2 38.5 MEQ/L (23.0-31.0); ABG pH (ARTERIAL) 7.512 UNITS (7.350-7.450)
[2017-03-22] MEDS: SYMBICORT 160/4.5MCG INHALER 6GM INH ×2 (08:09→20:57)
[2017-03-22] MEDS: FERROUS SULFATE 300MG/5ML UDC LIQUID PO ×2 (08:47→17:41)
[2017-03-22] MEDS: K-PHOS ORIGINAL (POT.ACID PHOSPHATE) 500MG TAB PO ×2 (08:49→20:19)
[2017-03-22] MEDS: MOXIFLOXACIN 400 MG TAB PO (16:19)
[2017-03-22] MEDS: ATORVASTATIN 20 MG TAB PO (20:19)
[2017-03-23] MEDS: ALPRAZolam 0.5 MG TAB PO (01:03)
[2017-03-23] MEDS: methylPREDNISolone INJ 125 MG/2 ML VIAL (J2930) IV ×3 (01:03→17:51)
[2017-03-23] MEDS: IPRATROPIUM 0.5MG/ALBUTEROL 2.5MG INH SOL UD 3ML (DUONEB)(J7620) NEB ×5 (02:23→20:00)
[2017-03-23] MEDS: hydrALAZINE INJ 20 MG/ML VIAL IV ×2 (04:00→10:00)
[2017-03-23 04:23] LABS: HEMATOCRIT 29.9 % (36.0-47.0); HEMOGLOBIN 8.5 g/dl (12.0-16.0); MEAN CORPUSCULAR HEMOGLOBIN 22.1 pg (27.0-33.0); MEAN CORPUSCULAR HGB CONC 28.4 g/dl (32.0-36.5); MEAN CORPUSCULAR VOLUME 77.7 fl (80.0-96.0); PLATELET COUNT, AUTOMATED 241 10^3/uL (150-450); RED BLOOD COUNT 3.85 10^6/uL (4.00-5.40); RED CELL DISTRIBUTION WIDTH 18.8 % (11.5-14.5); WHITE BLOOD COUNT 5.3 10^3/uL (4.0-10.0)
[2017-03-23 04:46] LABS: ALBUMIN 2.7 GM/DL (3.2-5.2); ALBUMIN/GLOBULIN RATIO 0.75 (1.00-1.93); ALKALINE PHOSPHATASE 50 U/L (45-117); ALT/SGPT 35 U/L (12-78); ANION GAP 2 MEQ/L (8-16); AST/SGOT 35 U/L (7-37); BILIRUBIN,TOTAL 0.3 MG/DL (0.2-1.0); BLOOD UREA NITROGEN 24 MG/DL (7-18); C REACTIVE PROTEIN QUANTITATIV 0.68 MG/DL (0.00-0.30); CALCIUM LEVEL 8.1 MG/DL (8.8-10.2); CARBON DIOXIDE LEVEL 36 MEQ/L (21-32); CHLORIDE LEVEL 102 MEQ/L (98-107); CREATININE FOR GFR 0.73 MG/DL (0.55-1.02); GLOMERULAR FILTRATION RATE > 60.0 (>45); GLUCOSE, FASTING 101 MG/DL (70-100); MAGNESIUM LEVEL 2.1 MG/DL (1.8-2.4); PHOSPHORUS LEVEL 3.2 MG/DL (2.5-4.9); POTASSIUM SERUM 3.8 MEQ/L (3.5-5.1); SODIUM LEVEL 140 MEQ/L (136-145); TOTAL PROTEIN 6.3 GM/DL (6.4-8.2)
[2017-03-23] MEDS: HEPARIN SOD (PORCINE) 5000 UNITS/ML VIAL SC ×3 (06:29→21:46)
[2017-03-23] MEDS: MOXIFLOXACIN 400 MG TAB PO (06:29)
[2017-03-23] MEDS: SYMBICORT 160/4.5MCG INHALER 6GM INH ×2 (07:34→20:27)
[2017-03-23] MEDS: PANTOPRAZOLE 40MG TAB (PROTONIX) PO (08:35)
[2017-03-23] MEDS: FOLIC ACID 1 MG TAB PO (08:35)
[2017-03-23] MEDS: CitaloPRAM (CeleXA) 20 MG TAB PO (08:35)
[2017-03-23] MEDS: FERROUS SULFATE 300MG/5ML UDC LIQUID PO ×2 (08:35→17:51)
[2017-03-23] MEDS: LISINOPRIL *2.5 MG* TAB PO (08:35)
[2017-03-23] MEDS: MULTIVITAMINS/MINERALS THERAP 1 TAB PO (08:35)
[2017-03-23] MEDS: CARVedilol 3.125 MG TAB PO ×2 (08:36→21:45)
[2017-03-23] MEDS: LACTULOSE 20 GM/30 ML SYRUP UD PO (08:36)
[2017-03-23] MEDS: ATORVASTATIN 20 MG TAB PO (21:46)
[2017-03-24] MEDS: IPRATROPIUM 0.5MG/ALBUTEROL 2.5MG INH SOL UD 3ML (DUONEB)(J7620) NEB ×4 (01:07→20:00)
[2017-03-24] MEDS: methylPREDNISolone INJ 125 MG/2 ML VIAL (J2930) IV ×2 (02:19→08:33)
[2017-03-24] MEDS: HEPARIN SOD (PORCINE) 5000 UNITS/ML VIAL SC ×3 (05:43→22:23)
[2017-03-24] MEDS: MOXIFLOXACIN 400 MG TAB PO (05:43)
[2017-03-24 06:01] LABS: HEMATOCRIT 33.5 % (36.0-47.0); HEMOGLOBIN 9.5 g/dl (12.0-16.0); MEAN CORPUSCULAR HEMOGLOBIN 21.8 pg (27.0-33.0); MEAN CORPUSCULAR HGB CONC 28.4 g/dl (32.0-36.5); MEAN CORPUSCULAR VOLUME 76.8 fl (80.0-96.0); PLATELET COUNT, AUTOMATED 318 10^3/uL (150-450); RED BLOOD COUNT 4.36 10^6/uL (4.00-5.40); RED CELL DISTRIBUTION WIDTH 18.8 % (11.5-14.5); WHITE BLOOD COUNT 5.8 10^3/uL (4.0-10.0)
[2017-03-24 06:23] LABS: ALBUMIN 2.9 GM/DL (3.2-5.2); ALBUMIN/GLOBULIN RATIO 0.73 (1.00-1.93); ALKALINE PHOSPHATASE 56 U/L (45-117); ALT/SGPT 41 U/L (12-78); ANION GAP 5 MEQ/L (8-16); AST/SGOT 28 U/L (7-37); BILIRUBIN,TOTAL 0.4 MG/DL (0.2-1.0); BLOOD UREA NITROGEN 26 MG/DL (7-18); C REACTIVE PROTEIN QUANTITATIV 0.49 MG/DL (0.00-0.30); CALCIUM LEVEL 8.6 MG/DL (8.8-10.2); CARBON DIOXIDE LEVEL 34 MEQ/L (21-32); CHLORIDE LEVEL 103 MEQ/L (98-107); CREATININE FOR GFR 0.73 MG/DL (0.55-1.02); GLOMERULAR FILTRATION RATE > 60.0 (>45); GLUCOSE, FASTING 103 MG/DL (70-100); MAGNESIUM LEVEL 2.3 MG/DL (1.8-2.4); PHOSPHORUS LEVEL 2.8 MG/DL (2.5-4.9); POTASSIUM SERUM 3.9 MEQ/L (3.5-5.1); SODIUM LEVEL 142 MEQ/L (136-145); TOTAL PROTEIN 6.9 GM/DL (6.4-8.2)
[2017-03-24] MEDS: SYMBICORT 160/4.5MCG INHALER 6GM INH ×2 (07:51→21:00)
[2017-03-24] MEDS: PANTOPRAZOLE 40MG TAB (PROTONIX) PO (08:32)
[2017-03-24] MEDS: CitaloPRAM (CeleXA) 20 MG TAB PO (08:32)
[2017-03-24] MEDS: LISINOPRIL *2.5 MG* TAB PO (08:32)
[2017-03-24] MEDS: CARVedilol 3.125 MG TAB PO ×2 (08:32→20:35)
[2017-03-24] MEDS: FOLIC ACID 1 MG TAB PO (08:32)
[2017-03-24] MEDS: MULTIVITAMINS/MINERALS THERAP 1 TAB PO (08:32)
[2017-03-24] MEDS: FERROUS SULFATE 300MG/5ML UDC LIQUID PO ×2 (08:33→17:49)
[2017-03-24] MEDS: LACTULOSE 20 GM/30 ML SYRUP UD PO (08:33)
[2017-03-24] MEDS: ATORVASTATIN 20 MG TAB PO (20:34)
[2017-03-25] MEDS: IPRATROPIUM 0.5MG/ALBUTEROL 2.5MG INH SOL UD 3ML (DUONEB)(J7620) NEB ×5 (02:00→20:00)
[2017-03-25] MEDS: MOXIFLOXACIN 400 MG TAB PO (05:53)
[2017-03-25] MEDS: HEPARIN SOD (PORCINE) 5000 UNITS/ML VIAL SC ×3 (05:53→20:55)
[2017-03-25 06:09] LABS: HEMATOCRIT 33.2 % (36.0-47.0); HEMOGLOBIN 9.4 g/dl (12.0-16.0); MEAN CORPUSCULAR HEMOGLOBIN 22.1 pg (27.0-33.0); MEAN CORPUSCULAR HGB CONC 28.3 g/dl (32.0-36.5); MEAN CORPUSCULAR VOLUME 77.9 fl (80.0-96.0); PLATELET COUNT, AUTOMATED 325 10^3/uL (150-450); RED BLOOD COUNT 4.26 10^6/uL (4.00-5.40); RED CELL DISTRIBUTION WIDTH 18.6 % (11.5-14.5); WHITE BLOOD COUNT 7.5 10^3/uL (4.0-10.0)
[2017-03-25 06:35] LABS: ALBUMIN 2.8 GM/DL (3.2-5.2); ALKALINE PHOSPHATASE 54 U/L (45-117); ALT/SGPT 37 U/L (12-78); ANION GAP 4 MEQ/L (8-16); AST/SGOT 26 U/L (7-37); BILIRUBIN,TOTAL 0.4 MG/DL (0.2-1.0); BLOOD UREA NITROGEN 22 MG/DL (7-18); C REACTIVE PROTEIN QUANTITATIV < 0.30 MG/DL (0.00-0.30); CARBON DIOXIDE LEVEL 37 MEQ/L (21-32); CHLORIDE LEVEL 103 MEQ/L (98-107); CREATININE FOR GFR 0.75 MG/DL (0.55-1.02); GLOMERULAR FILTRATION RATE > 60.0 (>45); GLUCOSE, FASTING 86 MG/DL (70-100); MAGNESIUM LEVEL 2.1 MG/DL (1.8-2.4); PHOSPHORUS LEVEL 1.6 MG/DL (2.5-4.9); POTASSIUM SERUM 3.3 MEQ/L (3.5-5.1); SODIUM LEVEL 144 MEQ/L (136-145); TOTAL PROTEIN 6.3 GM/DL (6.4-8.2)
[2017-03-25] MEDS: SYMBICORT 160/4.5MCG INHALER 6GM INH ×2 (07:31→20:13)
[2017-03-25] MEDS: FOLIC ACID 1 MG TAB PO (08:50)
[2017-03-25] MEDS: MULTIVITAMINS/MINERALS THERAP 1 TAB PO (08:50)
[2017-03-25] MEDS: CARVedilol 3.125 MG TAB PO ×2 (08:50→20:54)
[2017-03-25] MEDS: LACTULOSE 20 GM/30 ML SYRUP UD PO (08:50)
[2017-03-25] MEDS: MAG SULF 1GM/100ML (MAG RUN) 1 GM in APPROPRIATE DILUENT 1 EA IV (08:50)
[2017-03-25] MEDS: FERROUS SULFATE 300MG/5ML UDC LIQUID PO ×2 (08:50→18:26)
[2017-03-25] MEDS: PANTOPRAZOLE 40MG TAB (PROTONIX) PO (08:50)
[2017-03-25] MEDS: LISINOPRIL *2.5 MG* TAB PO (08:51)
[2017-03-25] MEDS: POTASSIUM CHLORIDE 10 MEQ SR TABLET PO ×2 (08:51→20:53)
[2017-03-25] MEDS: CitaloPRAM (CeleXA) 20 MG TAB PO (08:51)
[2017-03-25] MEDS: predniSONE 20 MG TAB PO (08:51)
[2017-03-25] MEDS ORDERED: predniSONE 20 MG TAB PO (09:00)
[2017-03-25] MEDS: ATORVASTATIN 20 MG TAB PO (20:54)
[2017-03-26] MEDS: ALPRAZolam 0.5 MG TAB PO (00:13)
[2017-03-26] MEDS: NICOTINE 7 MG/24 HR TRANSDERMAL TD (01:17)
[2017-03-26] MEDS: IPRATROPIUM 0.5MG/ALBUTEROL 2.5MG INH SOL UD 3ML (DUONEB)(J7620) NEB ×2 (01:38→08:00)
[2017-03-26] MEDS: ACETAMINOPHEN TAB 650MG DOSE (2X325MG) PO (01:46)
[2017-03-26] MEDS: MOXIFLOXACIN 400 MG TAB PO (05:56)
[2017-03-26] MEDS: HEPARIN SOD (PORCINE) 5000 UNITS/ML VIAL SC (05:56)
[2017-03-26 06:53] LABS: HEMATOCRIT 33.3 % (36.0-47.0); HEMOGLOBIN 9.1 g/dl (12.0-16.0); MEAN CORPUSCULAR HEMOGLOBIN 21.7 pg (27.0-33.0); MEAN CORPUSCULAR HGB CONC 27.3 g/dl (32.0-36.5); MEAN CORPUSCULAR VOLUME 79.3 fl (80.0-96.0); PLATELET COUNT, AUTOMATED 365 10^3/uL (150-450); RED CELL DISTRIBUTION WIDTH 18.6 % (11.5-14.5); WHITE BLOOD COUNT 7.8 10^3/uL (4.0-10.0)
[2017-03-26 07:11] LABS: ALBUMIN/GLOBULIN RATIO 0.91 (1.00-1.93); ALKALINE PHOSPHATASE 58 U/L (45-117); ALT/SGPT 36 U/L (12-78); ANION GAP 2 MEQ/L (8-16); AST/SGOT 19 U/L (7-37); BILIRUBIN,TOTAL 0.3 MG/DL (0.2-1.0); BLOOD UREA NITROGEN 25 MG/DL (7-18); CALCIUM LEVEL 8.4 MG/DL (8.8-10.2); CARBON DIOXIDE LEVEL 36 MEQ/L (21-32); CHLORIDE LEVEL 105 MEQ/L (98-107); GLOMERULAR FILTRATION RATE > 60.0 (>45); GLUCOSE, FASTING 81 MG/DL (70-100); MAGNESIUM LEVEL 2.3 MG/DL (1.8-2.4); POTASSIUM SERUM 4.5 MEQ/L (3.5-5.1); SODIUM LEVEL 143 MEQ/L (136-145); TOTAL PROTEIN 6.3 GM/DL (6.4-8.2)
[2017-03-26 08:21] LABS: PHOSPHORUS LEVEL 1.8 MG/DL (2.5-4.9)
[2017-03-26] MEDS: LACTULOSE 20 GM/30 ML SYRUP UD PO (08:41)
[2017-03-26] MEDS: FERROUS SULFATE 300MG/5ML UDC LIQUID PO (08:41)
[2017-03-26] MEDS: CitaloPRAM (CeleXA) 20 MG TAB PO (08:42)
[2017-03-26] MEDS: CARVedilol 3.125 MG TAB PO (08:42)
[2017-03-26] MEDS: LISINOPRIL *2.5 MG* TAB PO (08:42)
[2017-03-26] MEDS: FOLIC ACID 1 MG TAB PO (08:42)
[2017-03-26] MEDS: MULTIVITAMINS/MINERALS THERAP 1 TAB PO (08:42)
[2017-03-26] MEDS: PANTOPRAZOLE 40MG TAB (PROTONIX) PO (08:42)
[2017-03-26] MEDS: predniSONE 20 MG TAB PO (08:42)
[2017-03-26] MEDS: SYMBICORT 160/4.5MCG INHALER 6GM INH (09:48)
[2017-03-26] MEDS: NEUTRA-PHOS 1.25 GM PACKET PO ×2 (10:45→11:34)
[2017-03-28] MEDS ORDERED: predniSONE 10 MG TAB PO (09:00)
[2017-03-31] MEDS ORDERED: predniSONE 20 MG TAB PO (09:00)
[2017-04-05] MEDS ORDERED: predniSONE 10 MG TAB PO (09:00)
== END 2017-03-26 12:39 | disposition home or self-care (01) | DRG 189 ==
LOC: M MSPAV 03-23 12:39 → M ED 13:04 → M ED INP 16:20 → M ICU 18:20
DX: J96.02 Acute respiratory failure with hypercapnia (principal); J18.9 Pneumonia, unspecified organism; J44.1 Chronic obstructive pulmonary disease with (acute) exacerbation; R64 Cachexia; E46 Unspecified protein-calorie malnutrition; J96.11 Chronic respiratory failure with hypoxia; F17.200 Nicotine dependence, unspecified, uncomplicated; E78.5 Hyperlipidemia, unspecified; F32.9 Major depressive disorder, single episode, unspecified; F41.9 Anxiety disorder, unspecified; D50.9 Iron deficiency anemia, unspecified; Z85.118 Personal history of other malignant neoplasm of bronchus and lung; Z91.040 Latex allergy status; I10 Essential (primary) hypertension; Z79.899 Other long term (current) drug therapy; J84.10 Pulmonary fibrosis, unspecified

== ENCOUNTER 2017-05-14 12:54 | Inpatient (IN) | payer OTHER ==
[2017-05-14 13:44] LABS: BASO % 0.3 % (0.0-1.0); HEMATOCRIT 33.9 % (36.0-47.0); HEMOGLOBIN 8.6 g/dl (12.0-16.0); IMMATURE GRANULOCYTE % 1.6 % (0-3.0); LYMPH # 0.7 10^3/uL (1.5-4.5); LYMPH % 5.7 % (24.0-44.0); MEAN CORPUSCULAR HEMOGLOBIN 20.5 pg (27.0-33.0); MEAN CORPUSCULAR HGB CONC 25.4 g/dl (32.0-36.5); MEAN CORPUSCULAR VOLUME 80.7 fl (80.0-96.0); MONO % 8.5 % (0.0-5.0); NEUTROPHILS # 10.3 10^3/uL (1.8-7.7); NEUTROPHILS % 83.9 % (36.0-66.0); PLATELET COUNT, AUTOMATED 265 10^3/uL (150-450); RED CELL DISTRIBUTION WIDTH 18.9 % (11.5-14.5); WHITE BLOOD COUNT 12.3 10^3/uL (4.0-10.0)
[2017-05-14] MEDS: NS 1,000 ML IV (13:45)
[2017-05-14 13:51] LABS: ABG HCO3 44.7 MEQ/L (22.0-26.0); ABG STANDARD HCO3 39.6 MEQ/L (22.0-26.0); ABG TOTAL CO2 47.5 MEQ/L (23.0-31.0); ABG pH (ARTERIAL) 7.316 UNITS (7.350-7.450)
[2017-05-14] MEDS: HEPARIN SOD (PORCINE) 5000 UNITS/ML VIAL SC ×2 (14:00→21:42)
[2017-05-14 14:05] LABS: AMMONIA < 10 uMOL/L (<32)
[2017-05-14 14:10] LABS: LACTIC ACID SEPSIS PROTOCOL 0.9 MMOL/L (0.4-2.0)
[2017-05-14 14:11] LABS: ABG PARTIAL PRESSURE CO2 89.6 mmHg (35.0-45.0)
[2017-05-14 14:14] LABS: ALBUMIN 2.7 GM/DL (3.2-5.2); ALBUMIN/GLOBULIN RATIO 0.56 (1.00-1.93); ALKALINE PHOSPHATASE 79 U/L (45-117); ALT/SGPT 13 U/L (12-78); ANION GAP 3 MEQ/L (8-16); AST/SGOT 11 U/L (7-37); BILIRUBIN,DIRECT 0.1 MG/DL (0.0-0.2); BILIRUBIN,TOTAL 0.3 MG/DL (0.2-1.0); BLOOD UREA NITROGEN 19 MG/DL (7-18); CALCIUM LEVEL 9.5 MG/DL (8.8-10.2); CARBON DIOXIDE LEVEL 42 MEQ/L (21-32); CHLORIDE LEVEL 96 MEQ/L (98-107); CPK CREATINE PHOSPHOKINASE 19 U/L (26-192); CREATININE FOR GFR 0.75 MG/DL (0.55-1.30); ETHYL ALCOHOL (ETHANOL) < 0.003 % (0.000-0.010); GLOMERULAR FILTRATION RATE > 60.0 (>45); GLUCOSE, FASTING 95 MG/DL (70-100); POTASSIUM SERUM 4.3 MEQ/L (3.5-5.1); SALICYLATE LEVEL 2.3 MG/DL (5.0-30.0); SODIUM LEVEL 141 MEQ/L (136-145); TOTAL PROTEIN 7.5 GM/DL (6.4-8.2); TROPONIN I < 0.02 NG/ML (< 0.10)
[2017-05-14 14:20] LABS: MB/CK RELATIVE INDEX 5.26 (< OR =4); THYROID STIMULATING HORMONE 0.765 uIU/ML (0.358-3.740)
[2017-05-14 14:23] LABS: ACETAMINOPHEN LEVEL < 2.0 UG/ML (10.0-30.0)
[2017-05-14] MEDS: CEFTRIAXONE SOD 1 GM in APPROPRIATE DILUENT 1 EA IV (14:44)
[2017-05-14 15:09] LABS: AMPHETAMINES LEVEL URINE NEGATIVE (NEGATIVE); BARBITURATES URINE NEGATIVE (NEGATIVE); BENZODIAZEPINES URINE POSITIVE (NEGATIVE); CANNABINOIDS URINE NEGATIVE (NEGATIVE); COCAINE METABOLITE URINE NEGATIVE (NEGATIVE); METHADONE URINE NEGATIVE (NEGATIVE); OPIATES URINE NEGATIVE (NEGATIVE); PHENCYCLIDINE URINE NEGATIVE (NEGATIVE)
[2017-05-14] MEDS: AZITHROMYCIN INJ 500 MG, VIAL MATE ADAPTER 1 EACH in D5W 250 ML IV (15:17)
[2017-05-14] MEDS ORDERED: ISOVUE-370 76% 100ML VIAL (Q9967) As Ordered (15:23)
[2017-05-14] MEDS ORDERED: IPRATROPIUM 0.5MG/ALBUTEROL 2.5MG INH SOL UD 3ML (DUONEB)(J7620) NEB (15:45)
[2017-05-14] MEDS: D5W/0.45% SODIUM CHLORIDE 1,000 ML IV (17:13)
[2017-05-14] MEDS: methylPREDNISolone INJ 125 MG/2 ML VIAL (J2930) IV ×2 (17:14→23:57)
[2017-05-14] MEDS: PANTOPRAZOLE 40MG INJ (PROTONIX) (C9113) IV (17:14)
[2017-05-14 18:57] LABS: CPK CREATINE PHOSPHOKINASE 18 U/L (26-192); MB/CK RELATIVE INDEX 5.55 (< OR =4); TROPONIN I < 0.02 NG/ML (< 0.10)
[2017-05-14] MEDS: IPRATROPIUM 0.5MG/ALBUTEROL 2.5MG INH SOL UD 3ML (DUONEB)(J7620) NEB (20:00)
[2017-05-14] MEDS: SYMBICORT 160/4.5MCG INHALER 6GM INH (20:23)
[2017-05-14] MEDS: ATORVASTATIN 20 MG TAB PO (21:00)
[2017-05-14] MEDS: SENOKOT S TAB PO (21:00)
[2017-05-14] MEDS: CARVedilol 3.125 MG TAB PO (21:00)
[2017-05-15] MEDS: IPRATROPIUM 0.5MG/ALBUTEROL 2.5MG INH SOL UD 3ML (DUONEB)(J7620) NEB ×4 (01:19→20:10)
[2017-05-15] MEDS: D5W/0.45% SODIUM CHLORIDE 1,000 ML IV ×3 (01:45→21:45)
[2017-05-15 05:03] LABS: HEMATOCRIT 28.8 % (36.0-47.0); HEMOGLOBIN 7.4 g/dl (12.0-16.0); MEAN CORPUSCULAR HEMOGLOBIN 20.6 pg (27.0-33.0); MEAN CORPUSCULAR HGB CONC 25.7 g/dl (32.0-36.5); MEAN CORPUSCULAR VOLUME 80.2 fl (80.0-96.0); PLATELET COUNT, AUTOMATED 265 10^3/uL (150-450); RED BLOOD COUNT 3.59 10^6/uL (4.00-5.40); RED CELL DISTRIBUTION WIDTH 18.4 % (11.5-14.5); WHITE BLOOD COUNT 10.6 10^3/uL (4.0-10.0)
[2017-05-15] MEDS: HEPARIN SOD (PORCINE) 5000 UNITS/ML VIAL SC ×3 (05:21→22:00)
[2017-05-15 05:43] LABS: ALBUMIN 2.2 GM/DL (3.2-5.2); ALBUMIN/GLOBULIN RATIO 0.59 (1.00-1.93); ALKALINE PHOSPHATASE 96 U/L (45-117); ALT/SGPT 23 U/L (12-78); ANION GAP 4 MEQ/L (8-16); AST/SGOT 16 U/L (7-37); BILIRUBIN,TOTAL 0.2 MG/DL (0.2-1.0); BLOOD UREA NITROGEN 16 MG/DL (7-18); CALCIUM LEVEL 8.5 MG/DL (8.8-10.2); CARBON DIOXIDE LEVEL 39 MEQ/L (21-32); CHLORIDE LEVEL 98 MEQ/L (98-107); CPK CREATINE PHOSPHOKINASE 17 U/L (26-192); CREATININE FOR GFR 0.56 MG/DL (0.55-1.30); GLOMERULAR FILTRATION RATE > 60.0 (>45); GLUCOSE, FASTING 183 MG/DL (70-100); POTASSIUM SERUM 4.8 MEQ/L (3.5-5.1); SODIUM LEVEL 141 MEQ/L (136-145); TOTAL PROTEIN 5.9 GM/DL (6.4-8.2); TROPONIN I < 0.02 NG/ML (< 0.10)
[2017-05-15 05:45] LABS: MB/CK RELATIVE INDEX 5.88 (< OR =4)
[2017-05-15 06:02] LABS: ABG BASE EXCESS 13.5 (-2.0-2.0); ABG HCO3 42.4 MEQ/L (22.0-26.0); ABG STANDARD HCO3 37.2 MEQ/L (22.0-26.0); ABG TOTAL CO2 45.2 MEQ/L (23.0-31.0); ABG pH (ARTERIAL) 7.286 UNITS (7.350-7.450)
[2017-05-15 07:24] LABS: ABG BASE EXCESS 19.4 (-2.0-2.0); ABG HCO3 49.8 MEQ/L (22.0-26.0); ABG O2 SATURATION 93.5 % (95.0-99.0); ABG PARTIAL PRESSURE CO2 116.5 mmHg (35.0-45.0); ABG PARTIAL PRESSURE O2 74.2 mmHg (75.0-100.0); ABG STANDARD HCO3 43.2 MEQ/L (22.0-26.0); ABG TOTAL CO2 53.4 MEQ/L (23.0-31.0); ABG pH (ARTERIAL) 7.249 UNITS (7.350-7.450)
[2017-05-15] MEDS: SYMBICORT 160/4.5MCG INHALER 6GM INH ×2 (08:00→20:00)
[2017-05-15] MEDS: methylPREDNISolone INJ 125 MG/2 ML VIAL (J2930) IV ×2 (08:19→15:30)
[2017-05-15] MEDS: PANTOPRAZOLE 40MG INJ (PROTONIX) (C9113) IV (08:20)
[2017-05-15 08:45] LABS: ABG BASE EXCESS 16.3 (-2.0-2.0); ABG HCO3 45.7 MEQ/L (22.0-26.0); ABG PARTIAL PRESSURE O2 86.6 mmHg (75.0-100.0); ABG STANDARD HCO3 40.1 MEQ/L (22.0-26.0); ABG TOTAL CO2 48.7 MEQ/L (23.0-31.0); ABG pH (ARTERIAL) 7.284 UNITS (7.350-7.450)
[2017-05-15 08:47] LABS: ABG PARTIAL PRESSURE CO2 98.5 mmHg (35.0-45.0)
[2017-05-15] MEDS: LISINOPRIL *2.5 MG* TAB PO (09:00)
[2017-05-15] MEDS: ASPIRIN 81 MG ENTERIC TAB PO (09:00)
[2017-05-15] MEDS: FOLIC ACID 1 MG TAB PO (09:00)
[2017-05-15] MEDS: SENOKOT S TAB PO ×2 (09:00→21:00)
[2017-05-15] MEDS: CARVedilol 3.125 MG TAB PO (09:00)
[2017-05-15] MEDS: MULTIVITAMINS/MINERALS THERAP 1 TAB PO (09:00)
[2017-05-15] MEDS: CEFTRIAXONE SOD 1 GM in APPROPRIATE DILUENT 1 EA IV (13:42)
[2017-05-15] MEDS: AZITHROMYCIN INJ 500 MG, VIAL MATE ADAPTER 1 EACH in D5W 250 ML IV (15:00)
[2017-05-15] MEDS ORDERED: LIDOCAINE 5% (LIDODERM) PATCH TD (17:45)
[2017-05-15] MEDS: METOPROLOL 5 MG/5 ML VIAL IV (18:23)
[2017-05-15] MEDS: ATORVASTATIN 20 MG TAB PO (21:00)
[2017-05-15] MEDS: **NOTE PATIENT COMMENT** MISC XX (21:00)
[2017-05-16] MEDS: METOPROLOL 5 MG/5 ML VIAL IV ×2 (00:07→05:36)
[2017-05-16] MEDS: methylPREDNISolone INJ 125 MG/2 ML VIAL (J2930) IV ×4 (00:08→23:12)
[2017-05-16] MEDS: IPRATROPIUM 0.5MG/ALBUTEROL 2.5MG INH SOL UD 3ML (DUONEB)(J7620) NEB ×4 (01:44→20:00)
[2017-05-16 04:56] LABS: HEMATOCRIT 26.5 % (36.0-47.0); HEMOGLOBIN 7.1 g/dl (12.0-16.0); MEAN CORPUSCULAR HEMOGLOBIN 20.6 pg (27.0-33.0); MEAN CORPUSCULAR HGB CONC 26.8 g/dl (32.0-36.5); MEAN CORPUSCULAR VOLUME 76.8 fl (80.0-96.0); PLATELET COUNT, AUTOMATED 295 10^3/uL (150-450); RED BLOOD COUNT 3.45 10^6/uL (4.00-5.40); RED CELL DISTRIBUTION WIDTH 18.6 % (11.5-14.5); WHITE BLOOD COUNT 9.9 10^3/uL (4.0-10.0)
[2017-05-16 05:20] LABS: ALBUMIN 2.2 GM/DL (3.2-5.2); ALKALINE PHOSPHATASE 86 U/L (45-117); ALT/SGPT 18 U/L (12-78); ANION GAP 2 MEQ/L (8-16); AST/SGOT 10 U/L (7-37); BILIRUBIN,TOTAL 0.2 MG/DL (0.2-1.0); BLOOD UREA NITROGEN 15 MG/DL (7-18); CALCIUM LEVEL 8.7 MG/DL (8.8-10.2); CARBON DIOXIDE LEVEL 37 MEQ/L (21-32); CHLORIDE LEVEL 99 MEQ/L (98-107); GLOMERULAR FILTRATION RATE > 60.0 (>45); GLUCOSE, FASTING 142 MG/DL (70-100); MAGNESIUM LEVEL 1.8 MG/DL (1.8-2.4); POTASSIUM SERUM 4.1 MEQ/L (3.5-5.1); SODIUM LEVEL 138 MEQ/L (136-145); TOTAL PROTEIN 6.6 GM/DL (6.4-8.2)
[2017-05-16] MEDS: HEPARIN SOD (PORCINE) 5000 UNITS/ML VIAL SC ×3 (05:35→21:17)
[2017-05-16] MEDS: SYMBICORT 160/4.5MCG INHALER 6GM INH ×2 (07:31→20:30)
[2017-05-16] MEDS: FOLIC ACID 1 MG TAB PO (08:24)
[2017-05-16] MEDS: PANTOPRAZOLE 40MG INJ (PROTONIX) (C9113) IV (08:24)
[2017-05-16] MEDS: ASPIRIN 81 MG ENTERIC TAB PO (08:25)
[2017-05-16] MEDS: MULTIVITAMINS/MINERALS THERAP 1 TAB PO (08:25)
[2017-05-16] MEDS: SENOKOT S TAB PO ×2 (08:25→21:17)
[2017-05-16] MEDS: D5W/0.45% SODIUM CHLORIDE 1,000 ML IV (08:25)
[2017-05-16] MEDS: LISINOPRIL *2.5 MG* TAB PO (12:33)
[2017-05-16] MEDS: CARVedilol 3.125 MG TAB PO ×2 (12:34→21:17)
[2017-05-16] MEDS: CEFTRIAXONE SOD 1 GM in APPROPRIATE DILUENT 1 EA IV (13:56)
[2017-05-16] MEDS: AZITHROMYCIN INJ 500 MG, VIAL MATE ADAPTER 1 EACH in D5W 250 ML IV (14:51)
[2017-05-16] MEDS: PREVNAR 13 VACCINE SYRINGE (CPT CODE:90670) IM (16:26)
[2017-05-16] MEDS: **NOTE PATIENT COMMENT** MISC XX (21:00)
[2017-05-16] MEDS: ATORVASTATIN 20 MG TAB PO (21:17)
[2017-05-17] MEDS: IPRATROPIUM 0.5MG/ALBUTEROL 2.5MG INH SOL UD 3ML (DUONEB)(J7620) NEB ×4 (01:55→20:00)
[2017-05-17 04:48] LABS: HEMATOCRIT 30.7 % (36.0-47.0); HEMOGLOBIN 8.4 g/dl (12.0-16.0); MEAN CORPUSCULAR HEMOGLOBIN 20.2 pg (27.0-33.0); MEAN CORPUSCULAR HGB CONC 27.4 g/dl (32.0-36.5); PLATELET COUNT, AUTOMATED 357 10^3/uL (150-450); RED BLOOD COUNT 4.15 10^6/uL (4.00-5.40); RED CELL DISTRIBUTION WIDTH 18.7 % (11.5-14.5); WHITE BLOOD COUNT 9.2 10^3/uL (4.0-10.0)
[2017-05-17] MEDS: HEPARIN SOD (PORCINE) 5000 UNITS/ML VIAL SC ×3 (05:07→20:31)
[2017-05-17 05:15] LABS: ALBUMIN 2.6 GM/DL (3.2-5.2); ALBUMIN/GLOBULIN RATIO 0.57 (1.00-1.93); ALKALINE PHOSPHATASE 86 U/L (45-117); ALT/SGPT 21 U/L (12-78); ANION GAP 4 MEQ/L (8-16); AST/SGOT 16 U/L (7-37); BILIRUBIN,TOTAL 0.3 MG/DL (0.2-1.0); BLOOD UREA NITROGEN 20 MG/DL (7-18); C REACTIVE PROTEIN QUANTITATIV 5.21 MG/DL (0.00-0.30); CALCIUM LEVEL 9.2 MG/DL (8.8-10.2); CARBON DIOXIDE LEVEL 38 MEQ/L (21-32); CHLORIDE LEVEL 97 MEQ/L (98-107); CREATININE FOR GFR 0.64 MG/DL (0.55-1.30); GLOMERULAR FILTRATION RATE > 60.0 (>45); GLUCOSE, FASTING 123 MG/DL (70-100); MAGNESIUM LEVEL 1.7 MG/DL (1.8-2.4); POTASSIUM SERUM 3.5 MEQ/L (3.5-5.1); SODIUM LEVEL 139 MEQ/L (136-145); TOTAL PROTEIN 7.2 GM/DL (6.4-8.2)
[2017-05-17] MEDS: SYMBICORT 160/4.5MCG INHALER 6GM INH ×2 (07:20→19:54)
[2017-05-17] MEDS: PANTOPRAZOLE 40MG INJ (PROTONIX) (C9113) IV (08:04)
[2017-05-17] MEDS: MULTIVITAMINS/MINERALS THERAP 1 TAB PO (08:04)
[2017-05-17] MEDS: methylPREDNISolone INJ 125 MG/2 ML VIAL (J2930) IV (08:04)
[2017-05-17] MEDS: ASPIRIN 81 MG ENTERIC TAB PO (08:06)
[2017-05-17] MEDS: SENOKOT S TAB PO ×2 (08:06→20:31)
[2017-05-17] MEDS: CARVedilol 3.125 MG TAB PO (08:06)
[2017-05-17] MEDS: FOLIC ACID 1 MG TAB PO (08:06)
[2017-05-17] MEDS: LISINOPRIL *2.5 MG* TAB PO (08:06)
[2017-05-17] MEDS ORDERED: LISINOPRIL *2.5 MG* TAB PO (09:00)
[2017-05-17] MEDS: ONDANSETRON 4MG/2ML VIAL (J2405) IV (09:44)
[2017-05-17 10:11] LABS: ABG BASE EXCESS 13.8 (-2.0-2.0); ABG HCO3 39.9 MEQ/L (22.0-26.0); ABG O2 SATURATION 97.1 % (95.0-99.0); ABG PARTIAL PRESSURE CO2 58.8 mmHg (35.0-45.0); ABG PARTIAL PRESSURE O2 105.1 mmHg (75.0-100.0); ABG STANDARD HCO3 37.6 MEQ/L (22.0-26.0); ABG TOTAL CO2 41.7 MEQ/L (23.0-31.0); ABG pH (ARTERIAL) 7.449 UNITS (7.350-7.450)
[2017-05-17] MEDS: MAG SULF 1GM/100ML (MAG RUN) 1 GM in APPROPRIATE DILUENT 1 EA IV ×2 (10:12→11:51)
[2017-05-17] MEDS: AZITHROMYCIN 250 MG TAB PO (10:12)
[2017-05-17] MEDS: predniSONE 20 MG TAB PO (10:13)
[2017-05-17] MEDS: DOXYCYCLINE HYCLATE 100 MG TAB PO ×2 (10:13→20:31)
[2017-05-17] MEDS: amLODIPine 10 MG TAB PO (10:13)
[2017-05-17] MEDS: ATORVASTATIN 20 MG TAB PO (20:31)
[2017-05-17] MEDS: **NOTE PATIENT COMMENT** MISC XX (20:32)
[2017-05-17] MEDS: ACETAMINOPHEN TAB 650MG DOSE (2X325MG) PO (20:32)
[2017-05-17] MEDS: CARVedilol 6.25 MG TAB PO (20:32)
[2017-05-18] MEDS: IPRATROPIUM 0.5MG/ALBUTEROL 2.5MG INH SOL UD 3ML (DUONEB)(J7620) NEB ×4 (02:00→20:00)
[2017-05-18] MEDS: HEPARIN SOD (PORCINE) 5000 UNITS/ML VIAL SC ×3 (05:51→21:26)
[2017-05-18 06:00] LABS: HEMATOCRIT 35.9 % (36.0-47.0); HEMOGLOBIN 9.8 g/dl (12.0-16.0); MEAN CORPUSCULAR HEMOGLOBIN 20.3 pg (27.0-33.0); MEAN CORPUSCULAR HGB CONC 27.3 g/dl (32.0-36.5); MEAN CORPUSCULAR VOLUME 74.5 fl (80.0-96.0); PLATELET COUNT, AUTOMATED 406 10^3/uL (150-450); RED BLOOD COUNT 4.82 10^6/uL (4.00-5.40); RED CELL DISTRIBUTION WIDTH 19.2 % (11.5-14.5); WHITE BLOOD COUNT 11.1 10^3/uL (4.0-10.0)
[2017-05-18 06:24] LABS: ALBUMIN 2.8 GM/DL (3.2-5.2); ALKALINE PHOSPHATASE 90 U/L (45-117); ALT/SGPT 23 U/L (12-78); ANION GAP 3 MEQ/L (8-16); AST/SGOT 10 U/L (7-37); BILIRUBIN,TOTAL 0.3 MG/DL (0.2-1.0); BLOOD UREA NITROGEN 24 MG/DL (7-18); C REACTIVE PROTEIN QUANTITATIV 2.36 MG/DL (0.00-0.30); CALCIUM LEVEL 9.3 MG/DL (8.8-10.2); CARBON DIOXIDE LEVEL 40 MEQ/L (21-32); CHLORIDE LEVEL 96 MEQ/L (98-107); CREATININE FOR GFR 0.76 MG/DL (0.55-1.30); GLOMERULAR FILTRATION RATE > 60.0 (>45); GLUCOSE, FASTING 85 MG/DL (70-100); MAGNESIUM LEVEL 2.4 MG/DL (1.8-2.4); POTASSIUM SERUM 3.6 MEQ/L (3.5-5.1); SODIUM LEVEL 139 MEQ/L (136-145); TOTAL PROTEIN 7.5 GM/DL (6.4-8.2)
[2017-05-18] MEDS: SYMBICORT 160/4.5MCG INHALER 6GM INH ×2 (07:40→21:01)
[2017-05-18] MEDS: ONDANSETRON 4MG/2ML VIAL (J2405) IV ×2 (08:17→13:32)
[2017-05-18] MEDS: NICOTINE 14 MG/24 HR TRANSDERMAL TD (08:50)
[2017-05-18] MEDS: LISINOPRIL *2.5 MG* TAB PO (08:51)
[2017-05-18] MEDS: DOXYCYCLINE HYCLATE 100 MG TAB PO ×2 (08:51→21:27)
[2017-05-18] MEDS: MULTIVITAMINS/MINERALS THERAP 1 TAB PO (08:51)
[2017-05-18] MEDS: amLODIPine 10 MG TAB PO (08:51)
[2017-05-18] MEDS: CARVedilol 6.25 MG TAB PO ×2 (08:51→21:28)
[2017-05-18] MEDS: FOLIC ACID 1 MG TAB PO (08:52)
[2017-05-18] MEDS: predniSONE 20 MG TAB PO (08:52)
[2017-05-18] MEDS: SENOKOT S TAB PO ×2 (08:52→21:27)
[2017-05-18] MEDS: ASPIRIN 81 MG ENTERIC TAB PO (08:52)
[2017-05-18] MEDS: ACETAMINOPHEN TAB 650MG DOSE (2X325MG) PO (08:53)
[2017-05-18] MEDS: **NOTE PATIENT COMMENT** MISC XX (21:00)
[2017-05-18] MEDS: ATORVASTATIN 20 MG TAB PO (21:27)
[2017-05-19] MEDS: IPRATROPIUM 0.5MG/ALBUTEROL 2.5MG INH SOL UD 3ML (DUONEB)(J7620) NEB ×4 (02:00→20:00)
[2017-05-19 05:59] LABS: HEMATOCRIT 34.1 % (36.0-47.0); HEMOGLOBIN 9.3 g/dl (12.0-16.0); MEAN CORPUSCULAR HEMOGLOBIN 20.2 pg (27.0-33.0); MEAN CORPUSCULAR HGB CONC 27.3 g/dl (32.0-36.5); MEAN CORPUSCULAR VOLUME 74.1 fl (80.0-96.0); PLATELET COUNT, AUTOMATED 438 10^3/uL (150-450); RED CELL DISTRIBUTION WIDTH 19.1 % (11.5-14.5); WHITE BLOOD COUNT 17.3 10^3/uL (4.0-10.0)
[2017-05-19] MEDS: HEPARIN SOD (PORCINE) 5000 UNITS/ML VIAL SC ×3 (06:19→21:26)
[2017-05-19 06:25] LABS: ALBUMIN 2.7 GM/DL (3.2-5.2); ALBUMIN/GLOBULIN RATIO 0.66 (1.00-1.93); ALKALINE PHOSPHATASE 89 U/L (45-117); ALT/SGPT 22 U/L (12-78); ANION GAP 2 MEQ/L (8-16); AST/SGOT 9 U/L (7-37); BILIRUBIN,TOTAL 0.3 MG/DL (0.2-1.0); BLOOD UREA NITROGEN 29 MG/DL (7-18); C REACTIVE PROTEIN QUANTITATIV 1.29 MG/DL (0.00-0.30); CARBON DIOXIDE LEVEL 41 MEQ/L (21-32); CHLORIDE LEVEL 98 MEQ/L (98-107); CREATININE FOR GFR 0.79 MG/DL (0.55-1.30); GLOMERULAR FILTRATION RATE > 60.0 (>45); GLUCOSE, FASTING 87 MG/DL (70-100); MAGNESIUM LEVEL 2.2 MG/DL (1.8-2.4); POTASSIUM SERUM 3.5 MEQ/L (3.5-5.1); SODIUM LEVEL 141 MEQ/L (136-145); TOTAL PROTEIN 6.8 GM/DL (6.4-8.2)
[2017-05-19] MEDS: SYMBICORT 160/4.5MCG INHALER 6GM INH ×2 (07:38→20:46)
[2017-05-19] MEDS: ONDANSETRON 4MG/2ML VIAL (J2405) IV (07:50)
[2017-05-19] MEDS: ASPIRIN 81 MG ENTERIC TAB PO (07:51)
[2017-05-19] MEDS: SENOKOT S TAB PO ×2 (07:51→21:26)
[2017-05-19] MEDS: MULTIVITAMINS/MINERALS THERAP 1 TAB PO (07:51)
[2017-05-19] MEDS: NICOTINE 14 MG/24 HR TRANSDERMAL TD (07:51)
[2017-05-19] MEDS: LISINOPRIL *2.5 MG* TAB PO (07:52)
[2017-05-19] MEDS: ACETAMINOPHEN TAB 650MG DOSE (2X325MG) PO (07:52)
[2017-05-19] MEDS: CARVedilol 6.25 MG TAB PO ×2 (07:53→21:29)
[2017-05-19] MEDS: FOLIC ACID 1 MG TAB PO (07:53)
[2017-05-19] MEDS: amLODIPine 10 MG TAB PO (07:53)
[2017-05-19] MEDS: DOXYCYCLINE HYCLATE 100 MG TAB PO ×2 (07:53→21:26)
[2017-05-19] MEDS: predniSONE 20 MG TAB PO (07:53)
[2017-05-19] MEDS: **NOTE PATIENT COMMENT** MISC XX (21:00)
[2017-05-19] MEDS: ATORVASTATIN 20 MG TAB PO (21:26)
[2017-05-20] MEDS: IPRATROPIUM 0.5MG/ALBUTEROL 2.5MG INH SOL UD 3ML (DUONEB)(J7620) NEB ×2 (02:00→08:00)
[2017-05-20] MEDS: HEPARIN SOD (PORCINE) 5000 UNITS/ML VIAL SC (06:36)
[2017-05-20 07:29] LABS: HEMOGLOBIN 8.8 g/dl (12.0-16.0); MEAN CORPUSCULAR HEMOGLOBIN 19.9 pg (27.0-33.0); MEAN CORPUSCULAR HGB CONC 26.7 g/dl (32.0-36.5); MEAN CORPUSCULAR VOLUME 74.7 fl (80.0-96.0); PLATELET COUNT, AUTOMATED 418 10^3/uL (150-450); RED BLOOD COUNT 4.42 10^6/uL (4.00-5.40); RED CELL DISTRIBUTION WIDTH 19.4 % (11.5-14.5); WHITE BLOOD COUNT 10.2 10^3/uL (4.0-10.0)
[2017-05-20 07:38] LABS: ALBUMIN 2.8 GM/DL (3.2-5.2); ALBUMIN/GLOBULIN RATIO 0.74 (1.00-1.93); ALKALINE PHOSPHATASE 82 U/L (45-117); ALT/SGPT 22 U/L (12-78); ANION GAP 4 MEQ/L (8-16); AST/SGOT 9 U/L (7-37); BILIRUBIN,TOTAL 0.2 MG/DL (0.2-1.0); BLOOD UREA NITROGEN 26 MG/DL (7-18); C REACTIVE PROTEIN QUANTITATIV 0.84 MG/DL (0.00-0.30); CALCIUM LEVEL 8.8 MG/DL (8.8-10.2); CARBON DIOXIDE LEVEL 37 MEQ/L (21-32); CHLORIDE LEVEL 98 MEQ/L (98-107); CREATININE FOR GFR 0.76 MG/DL (0.55-1.30); GLOMERULAR FILTRATION RATE > 60.0 (>45); GLUCOSE, FASTING 83 MG/DL (70-100); POTASSIUM SERUM 3.4 MEQ/L (3.5-5.1); SODIUM LEVEL 139 MEQ/L (136-145); TOTAL PROTEIN 6.6 GM/DL (6.4-8.2)
[2017-05-20] MEDS: MULTIVITAMINS/MINERALS THERAP 1 TAB PO (08:27)
[2017-05-20] MEDS: ASPIRIN 81 MG ENTERIC TAB PO (08:27)
[2017-05-20] MEDS: POTASSIUM CHLORIDE 10 MEQ SR TABLET PO (08:27)
[2017-05-20] MEDS: DOXYCYCLINE HYCLATE 100 MG TAB PO (08:28)
[2017-05-20] MEDS: CARVedilol 6.25 MG TAB PO (08:28)
[2017-05-20] MEDS: SENOKOT S TAB PO (08:28)
[2017-05-20] MEDS: amLODIPine 10 MG TAB PO (08:28)
[2017-05-20] MEDS: FOLIC ACID 1 MG TAB PO (08:28)
[2017-05-20] MEDS: LISINOPRIL *2.5 MG* TAB PO (08:28)
[2017-05-20] MEDS: predniSONE 20 MG TAB PO (08:28)
[2017-05-20] MEDS: NICOTINE 14 MG/24 HR TRANSDERMAL TD (08:29)
[2017-05-20] MEDS: SYMBICORT 160/4.5MCG INHALER 6GM INH (08:43)
== END 2017-05-20 14:25 | disposition home or self-care (01) | DRG 871 ==
LOC: M MS5PR 05-17 18:07 → M ED 12:54 → M ED INP 15:37 → M ICU 16:55
DX: A41.9 Sepsis, unspecified organism (principal); J18.9 Pneumonia, unspecified organism; J96.21 Acute and chronic respiratory failure with hypoxia; J96.22 Acute and chronic respiratory failure with hypercapnia; G93.41 Metabolic encephalopathy; E87.2 Acidosis; J43.9 Emphysema, unspecified; I10 Essential (primary) hypertension; F32.9 Major depressive disorder, single episode, unspecified; F41.9 Anxiety disorder, unspecified; D64.9 Anemia, unspecified; Z79.82 Long term (current) use of aspirin; Z79.899 Other long term (current) drug therapy; Z91.040 Latex allergy status; F17.200 Nicotine dependence, unspecified, uncomplicated; E78.5 Hyperlipidemia, unspecified; Z85.118 Personal history of other malignant neoplasm of bronchus and lung

== ENCOUNTER 2017-08-20 08:48 | Emergency (ER) | payer OTHER ==
[2017-08-20] MEDS: IPRATROPIUM 0.5MG/ALBUTEROL 2.5MG INH SOL UD 3ML (DUONEB)(J7620) NEB ×3 (09:14→09:53)
[2017-08-20 09:17] LABS: ABG BASE EXCESS 9.5 (-2.0-2.0); ABG HCO3 35.5 MEQ/L (22.0-26.0); ABG O2 SATURATION 98.5 % (95.0-99.0); ABG PARTIAL PRESSURE CO2 55.5 mmHg (35.0-45.0); ABG PARTIAL PRESSURE O2 107.8 mmHg (75.0-100.0); ABG STANDARD HCO3 33.2 MEQ/L (22.0-26.0); ABG TOTAL CO2 37.2 MEQ/L (23.0-31.0); ABG pH (ARTERIAL) 7.424 UNITS (7.350-7.450)
[2017-08-20 09:44] LABS: BASO % 0.3 % (0.0-1.0); EOS % 0.1 % (0.0-3.0); HEMATOCRIT 37.5 % (36.0-47.0); HEMOGLOBIN 10.9 g/dl (12.0-15.5); IMMATURE GRANULOCYTE % 0.4 % (0-3.0); LYMPH # 1.6 10^3/uL (1.5-4.5); LYMPH % 13.9 % (24.0-44.0); MEAN CORPUSCULAR HGB CONC 29.1 g/dl (32.0-36.5); MEAN CORPUSCULAR VOLUME 82.4 fl (80.0-96.0); MONO # 1.3 10^3/uL (0.0-0.8); MONO % 11.2 % (0.0-5.0); NEUTROPHILS # 8.4 10^3/uL (1.8-7.7); NEUTROPHILS % 74.1 % (36.0-66.0); PLATELET COUNT, AUTOMATED 280 10^3/uL (150-450); RED BLOOD COUNT 4.55 10^6/uL (4.00-5.40); RED CELL DISTRIBUTION WIDTH 18.3 % (11.5-14.5); WHITE BLOOD COUNT 11.3 10^3/uL (4.0-10.0)
[2017-08-20 09:56] LABS: INR 0.88
[2017-08-20 10:18] LABS: ALBUMIN 3.1 GM/DL (3.2-5.2); ALBUMIN/GLOBULIN RATIO 0.79 (1.00-1.93); ALKALINE PHOSPHATASE 66 U/L (45-117); ALT/SGPT 21 U/L (12-78); ANION GAP 5 MEQ/L (8-16); AST/SGOT 13 U/L (7-37); BILIRUBIN,DIRECT < 0.1 MG/DL (0.0-0.2); BILIRUBIN,TOTAL 0.3 MG/DL (0.2-1.0); BLOOD UREA NITROGEN 18 MG/DL (7-18); CARBON DIOXIDE LEVEL 40 MEQ/L (21-32); CHLORIDE LEVEL 96 MEQ/L (98-107); CPK CREATINE PHOSPHOKINASE 33 U/L (26-192); CREATININE FOR GFR 0.76 MG/DL (0.55-1.30); GLOMERULAR FILTRATION RATE > 60.0 (>45); GLUCOSE, FASTING 59 MG/DL (70-100); POTASSIUM SERUM 4.2 MEQ/L (3.5-5.1); SODIUM LEVEL 141 MEQ/L (136-145); TROPONIN I < 0.02 NG/ML (< 0.10)
[2017-08-20 10:24] LABS: CK-MB VALUE MASS 1.4 NG/ML (<3.6); MB/CK RELATIVE INDEX 4.24 (< OR =4); NT-PRO BNP 264 PG/ML (<125)
[2017-08-20] MEDS ORDERED: ISOVUE-370 76% 100ML VIAL (Q9967) As Ordered (11:15)
[2017-08-20] MEDS: methylPREDNISolone INJ 125 MG/2 ML VIAL (J2930) IV (12:15)
== END 2017-08-20 15:33 | disposition home or self-care (01) ==
LOC: M ED 08:48
DX: J44.9 Chronic obstructive pulmonary disease, unspecified (principal); R91.1 Solitary pulmonary nodule; J90 Pleural effusion, not elsewhere classified; Z95.828 Presence of other vascular implants and grafts; I51.9 Heart disease, unspecified; I10 Essential (primary) hypertension; Z85.118 Personal history of other malignant neoplasm of bronchus and lung; Z90.2 Acquired absence of lung [part of]; Z92.21 Personal history of antineoplastic chemotherapy; Z95.5 Presence of coronary angioplasty implant and graft; Z72.0 Tobacco use; Z79.82 Long term (current) use of aspirin; Z79.899 Other long term (current) drug therapy; Z91.89 Other specified personal risk factors, not elsewhere classified; Z91.040 Latex allergy status
CPT/HCPCS: Q9967

== ENCOUNTER 2017-08-24 12:56 | Emergency (ER) | payer OTHER ==
[2017-08-24] MEDS: IPRATROPIUM 0.5MG/ALBUTEROL 2.5MG INH SOL UD 3ML (DUONEB)(J7620) NEB ×5 (12:01→14:17)
[2017-08-24 12:18] LABS: ABG BASE EXCESS 8.6 (-2.0-2.0); ABG HCO3 34.3 MEQ/L (22.0-26.0); ABG O2 SATURATION 99.4 % (95.0-99.0); ABG PARTIAL PRESSURE CO2 52.5 mmHg (35.0-45.0); ABG PARTIAL PRESSURE O2 139.1 mmHg (75.0-100.0); ABG STANDARD HCO3 32.4 MEQ/L (22.0-26.0); ABG TOTAL CO2 35.9 MEQ/L (23.0-31.0); ABG pH (ARTERIAL) 7.433 UNITS (7.350-7.450)
[2017-08-24 12:25] LABS: BASO % 0.1 % (0.0-1.0); HEMATOCRIT 38.7 % (36.0-47.0); HEMOGLOBIN 11.1 g/dl (12.0-15.5); IMMATURE GRANULOCYTE % 0.4 % (0-3.0); LYMPH # 0.6 10^3/uL (1.5-4.5); MEAN CORPUSCULAR HEMOGLOBIN 23.9 pg (27.0-33.0); MEAN CORPUSCULAR HGB CONC 28.7 g/dl (32.0-36.5); MEAN CORPUSCULAR VOLUME 83.2 fl (80.0-96.0); MONO # 0.1 10^3/uL (0.0-0.8); MONO % 1.1 % (0.0-5.0); NEUTROPHILS # 10.6 10^3/uL (1.8-7.7); NEUTROPHILS % 93.4 % (36.0-66.0); PLATELET COUNT, AUTOMATED 251 10^3/uL (150-450); RED BLOOD COUNT 4.65 10^6/uL (4.00-5.40); RED CELL DISTRIBUTION WIDTH 17.7 % (11.5-14.5); WHITE BLOOD COUNT 11.4 10^3/uL (4.0-10.0)
[2017-08-24 12:52] LABS: LACTIC ACID SEPSIS PROTOCOL 1.3 MMOL/L (0.4-2.0)
[2017-08-24 12:54] LABS: ANION GAP 2 MEQ/L (8-16); BLOOD UREA NITROGEN 19 MG/DL (7-18); CALCIUM LEVEL 8.7 MG/DL (8.8-10.2); CARBON DIOXIDE LEVEL 40 MEQ/L (21-32); CHLORIDE LEVEL 98 MEQ/L (98-107); CPK CREATINE PHOSPHOKINASE 32 U/L (26-192); CREATININE FOR GFR 0.75 MG/DL (0.55-1.30); GLOMERULAR FILTRATION RATE > 60.0 (>45); GLUCOSE, FASTING 122 MG/DL (70-100); POTASSIUM SERUM 4.8 MEQ/L (3.5-5.1); SODIUM LEVEL 140 MEQ/L (136-145); TROPONIN I < 0.02 NG/ML (< 0.10)
[2017-08-24 13:00] LABS: CK-MB VALUE MASS 1.8 NG/ML (<3.6); MB/CK RELATIVE INDEX 5.62 (< OR =4); NT-PRO BNP 320 PG/ML (<125)
== END 2017-08-24 16:04 | disposition home or self-care (01) ==
LOC: M ED 12:56
DX: J44.1 Chronic obstructive pulmonary disease with (acute) exacerbation (principal); Z85.118 Personal history of other malignant neoplasm of bronchus and lung; I10 Essential (primary) hypertension; J44.9 Chronic obstructive pulmonary disease, unspecified; F41.9 Anxiety disorder, unspecified; F32.9 Major depressive disorder, single episode, unspecified; Z72.0 Tobacco use; Z90.2 Acquired absence of lung [part of]; Z79.82 Long term (current) use of aspirin; Z79.899 Other long term (current) drug therapy; Z91.040 Latex allergy status; Z91.89 Other specified personal risk factors, not elsewhere classified
CPT/HCPCS: 71045

== ENCOUNTER 2017-08-25 18:47 | Emergency (ER) | payer OTHER ==
[2017-08-25 19:55] LABS: BASO % 0.1 % (0.0-1.0); EOS % 0.1 % (0.0-3.0); HEMATOCRIT 37.1 % (36.0-47.0); HEMOGLOBIN 10.9 g/dl (12.0-15.5); IMMATURE GRANULOCYTE % 0.5 % (0-3.0); LYMPH # 1.3 10^3/uL (1.5-4.5); LYMPH % 8.2 % (24.0-44.0); MEAN CORPUSCULAR HGB CONC 29.4 g/dl (32.0-36.5); MEAN CORPUSCULAR VOLUME 81.7 fl (80.0-96.0); MONO # 0.9 10^3/uL (0.0-0.8); MONO % 5.9 % (0.0-5.0); NEUTROPHILS % 85.2 % (36.0-66.0); PLATELET COUNT, AUTOMATED 267 10^3/uL (150-450); RED BLOOD COUNT 4.54 10^6/uL (4.00-5.40); RED CELL DISTRIBUTION WIDTH 17.6 % (11.5-14.5); WHITE BLOOD COUNT 15.3 10^3/uL (4.0-10.0)
[2017-08-25 20:14] LABS: ANION GAP 5 MEQ/L (8-16); BLOOD UREA NITROGEN 20 MG/DL (7-18); CALCIUM LEVEL 8.8 MG/DL (8.8-10.2); CARBON DIOXIDE LEVEL 37 MEQ/L (21-32); CHLORIDE LEVEL 99 MEQ/L (98-107); CPK CREATINE PHOSPHOKINASE 33 U/L (26-192); CREATININE FOR GFR 0.78 MG/DL (0.55-1.30); GLOMERULAR FILTRATION RATE > 60.0 (>45); GLUCOSE, FASTING 101 MG/DL (70-100); MB/CK RELATIVE INDEX 6.06 (< OR =4); POTASSIUM SERUM 4.7 MEQ/L (3.5-5.1); SODIUM LEVEL 141 MEQ/L (136-145); TROPONIN I < 0.02 NG/ML (< 0.10)
[2017-08-25] MEDS: IPRATROPIUM 0.5MG/ALBUTEROL 2.5MG INH SOL UD 3ML (DUONEB)(J7620) NEB ×3 (20:15→20:33)
[2017-08-25] MEDS: dexameTHASONE 20 MG/5 ML VIAL (J1100) IV (20:20)
[2017-08-25 20:34] LABS: ABG BASE EXCESS 7.5 (-2.0-2.0); ABG HCO3 34.2 MEQ/L (22.0-26.0); ABG O2 SATURATION 99.7 % (95.0-99.0); ABG PARTIAL PRESSURE CO2 58.7 mmHg (35.0-45.0); ABG PARTIAL PRESSURE O2 343.1 mmHg (75.0-100.0); ABG STANDARD HCO3 31.4 MEQ/L (22.0-26.0); ABG pH (ARTERIAL) 7.383 UNITS (7.350-7.450)
== END 2017-08-25 23:00 | disposition home or self-care (01) ==
LOC: M ED 18:47
DX: J44.1 Chronic obstructive pulmonary disease with (acute) exacerbation (principal); I25.10 Atherosclerotic heart disease of native coronary artery without angina pectoris; Z95.5 Presence of coronary angioplasty implant and graft; Z98.890 Other specified postprocedural states; Z91.040 Latex allergy status; Z91.048 Other nonmedicinal substance allergy status; Z87.891 Personal history of nicotine dependence; Z79.52 Long term (current) use of systemic steroids; Z79.899 Other long term (current) drug therapy; Z79.82 Long term (current) use of aspirin; Z79.51 Long term (current) use of inhaled steroids; Z85.118 Personal history of other malignant neoplasm of bronchus and lung

== ENCOUNTER 2017-08-28 02:04 | Inpatient (IN) | payer OTHER ==
[2017-08-28 02:30] LABS: BASO % 0.1 % (0.0-1.0); HEMATOCRIT 37.3 % (36.0-47.0); HEMOGLOBIN 10.7 g/dl (12.0-15.5); IMMATURE GRANULOCYTE % 0.4 % (0-3.0); MEAN CORPUSCULAR HEMOGLOBIN 23.9 pg (27.0-33.0); MEAN CORPUSCULAR HGB CONC 28.7 g/dl (32.0-36.5); MEAN CORPUSCULAR VOLUME 83.4 fl (80.0-96.0); MONO # 1.1 10^3/uL (0.0-0.8); MONO % 8.9 % (0.0-5.0); NEUTROPHILS # 9.3 10^3/uL (1.8-7.7); NEUTROPHILS % 74.6 % (36.0-66.0); PLATELET COUNT, AUTOMATED 223 10^3/uL (150-450); RED BLOOD COUNT 4.47 10^6/uL (4.00-5.40); RED CELL DISTRIBUTION WIDTH 17.5 % (11.5-14.5); WHITE BLOOD COUNT 12.4 10^3/uL (4.0-10.0)
[2017-08-28 02:57] LABS: ALBUMIN 2.9 GM/DL (3.2-5.2); ALBUMIN/GLOBULIN RATIO 0.91 (1.00-1.93); ALKALINE PHOSPHATASE 64 U/L (45-117); ALT/SGPT 23 U/L (12-78); ANION GAP 4 MEQ/L (8-16); AST/SGOT 16 U/L (7-37); BILIRUBIN,DIRECT < 0.1 MG/DL (0.0-0.2); BILIRUBIN,TOTAL 0.2 MG/DL (0.2-1.0); BLOOD UREA NITROGEN 22 MG/DL (7-18); CALCIUM LEVEL 8.7 MG/DL (8.8-10.2); CARBON DIOXIDE LEVEL 39 MEQ/L (21-32); CHLORIDE LEVEL 98 MEQ/L (98-107); CPK CREATINE PHOSPHOKINASE 34 U/L (26-192); CREATININE FOR GFR 0.83 MG/DL (0.55-1.30); GLOMERULAR FILTRATION RATE > 60.0 (>45); GLUCOSE, FASTING 77 MG/DL (70-100); POTASSIUM SERUM 4.3 MEQ/L (3.5-5.1); SODIUM LEVEL 141 MEQ/L (136-145); TOTAL PROTEIN 6.1 GM/DL (6.4-8.2); TROPONIN I < 0.02 NG/ML (< 0.10)
[2017-08-28 03:02] LABS: CK-MB VALUE MASS 1.8 NG/ML (<3.6); MB/CK RELATIVE INDEX 5.29 (< OR =4); NT-PRO BNP 395 PG/ML (<125)
[2017-08-28] MEDS: methylPREDNISolone INJ 125 MG/2 ML VIAL (J2930) IV (03:54)
[2017-08-28] MEDS ORDERED: ISOVUE-370 76% 100ML VIAL (Q9967) As Ordered (03:57)
[2017-08-28] MEDS: IPRATROPIUM 0.5MG/ALBUTEROL 2.5MG INH SOL UD 3ML (DUONEB)(J7620) NEB ×5 (03:58→20:00)
[2017-08-28] MEDS: ALBUTEROL SULFATE 2.5 MG/0.5 ML INH NEB SOLN NEB (06:26)
[2017-08-28] MEDS ORDERED: IPRATROPIUM 0.5MG/ALBUTEROL 2.5MG INH SOL UD 3ML (DUONEB)(J7620) INH (06:30)
[2017-08-28] MEDS ORDERED: ONDANSETRON 4 MG TAB (S0181) PO (06:30)
[2017-08-28] MEDS ORDERED: BISACODYL 5 MG TAB PO (06:30)
[2017-08-28 08:03] LABS: ABG BASE EXCESS 6.6 (-2.0-2.0); ABG HCO3 32.5 MEQ/L (22.0-26.0); ABG O2 SATURATION 99.1 % (95.0-99.0); ABG PARTIAL PRESSURE CO2 52.9 mmHg (35.0-45.0); ABG PARTIAL PRESSURE O2 130.8 mmHg (75.0-100.0); ABG STANDARD HCO3 30.5 MEQ/L (22.0-26.0); ABG TOTAL CO2 34.1 MEQ/L (23.0-31.0); ABG pH (ARTERIAL) 7.406 UNITS (7.350-7.450)
[2017-08-28] MEDS: IPRATROPIUM 0.5MG/ALBUTEROL 2.5MG INH SOL UD 3ML (DUONEB)(J7620) INH ×2 (09:04→11:49)
[2017-08-28] MEDS: SYMBICORT 160/4.5MCG INHALER 6GM INH ×2 (09:05→20:31)
[2017-08-28] MEDS: predniSONE 20 MG TAB PO (09:18)
[2017-08-28] MEDS: CARVedilol 3.125 MG TAB PO ×2 (09:18→20:18)
[2017-08-28] MEDS: MULTIVITAMINS/MINERALS THERAP 1 TAB PO (09:18)
[2017-08-28] MEDS: ASPIRIN 81 MG ENTERIC TAB PO (09:18)
[2017-08-28] MEDS: ENOXAPARIN 40 MG/0.4 ML SYRINGE (J1650) SC (09:19)
[2017-08-28] MEDS: LISINOPRIL *2.5 MG* TAB PO (09:19)
[2017-08-28] MEDS: FOLIC ACID 1 MG TAB PO (09:19)
[2017-08-28] MEDS: CitaloPRAM (CeleXA) 20 MG TAB PO (09:19)
[2017-08-28] MEDS: busPIRone 5 MG TAB PO ×4 (10:42→20:17)
[2017-08-28] MEDS: ACETAMINOPHEN TAB 650MG DOSE (2X325MG) PO (10:42)
[2017-08-28 12:40] LABS: CPK CREATINE PHOSPHOKINASE 28 U/L (26-192); TROPONIN I < 0.02 NG/ML (< 0.10)
[2017-08-28 12:41] LABS: CK-MB VALUE MASS 1.5 NG/ML (<3.6); MB/CK RELATIVE INDEX 5.35 (< OR =4)
[2017-08-28] MEDS: AZITHROMYCIN 250 MG TAB PO (13:43)
[2017-08-28] MEDS: TIOTROPIUM INHALER/CAPSULE (SPIRIVA) INH (14:44)
[2017-08-28] MEDS: NICOTINE 21MG/24HR 1 EA TRANSDERMAL EXT (17:30)
[2017-08-28] MEDS: ATORVASTATIN 20 MG TAB PO (20:17)
[2017-08-29] MEDS: IPRATROPIUM 0.5MG/ALBUTEROL 2.5MG INH SOL UD 3ML (DUONEB)(J7620) NEB ×4 (01:03→20:00)
[2017-08-29] MEDS: SYMBICORT 160/4.5MCG INHALER 6GM INH ×2 (08:09→20:55)
[2017-08-29] MEDS: TIOTROPIUM INHALER/CAPSULE (SPIRIVA) INH (08:09)
[2017-08-29] MEDS: LISINOPRIL *2.5 MG* TAB PO (08:19)
[2017-08-29] MEDS: ENOXAPARIN 40 MG/0.4 ML SYRINGE (J1650) SC (08:19)
[2017-08-29] MEDS: MULTIVITAMINS/MINERALS THERAP 1 TAB PO (08:20)
[2017-08-29] MEDS: CARVedilol 3.125 MG TAB PO ×2 (08:20→20:33)
[2017-08-29] MEDS: FOLIC ACID 1 MG TAB PO (08:20)
[2017-08-29] MEDS: AZITHROMYCIN 250 MG TAB PO (08:20)
[2017-08-29] MEDS: predniSONE 20 MG TAB PO (08:20)
[2017-08-29] MEDS: busPIRone 5 MG TAB PO ×4 (08:20→20:27)
[2017-08-29] MEDS: CitaloPRAM (CeleXA) 20 MG TAB PO (08:20)
[2017-08-29 09:20] LABS: HEMATOCRIT 33.1 % (36.0-47.0); HEMOGLOBIN 9.7 g/dl (12.0-15.5); IMMATURE GRANULOCYTE % 0.5 % (0-3.0); LYMPH # 1.5 10^3/uL (1.5-4.5); LYMPH % 12.7 % (24.0-44.0); MEAN CORPUSCULAR HEMOGLOBIN 24.3 pg (27.0-33.0); MEAN CORPUSCULAR HGB CONC 29.3 g/dl (32.0-36.5); MEAN CORPUSCULAR VOLUME 82.8 fl (80.0-96.0); MONO % 8.7 % (0.0-5.0); NEUTROPHILS % 78.1 % (36.0-66.0); PLATELET COUNT, AUTOMATED 230 10^3/uL (150-450); RED CELL DISTRIBUTION WIDTH 17.3 % (11.5-14.5); WHITE BLOOD COUNT 11.5 10^3/uL (4.0-10.0)
[2017-08-29 09:48] LABS: ANION GAP 4 MEQ/L (8-16); BLOOD UREA NITROGEN 20 MG/DL (7-18); CALCIUM LEVEL 8.3 MG/DL (8.8-10.2); CARBON DIOXIDE LEVEL 39 MEQ/L (21-32); CHLORIDE LEVEL 100 MEQ/L (98-107); CREATININE FOR GFR 0.78 MG/DL (0.55-1.30); GLOMERULAR FILTRATION RATE > 60.0 (>45); GLUCOSE, FASTING 106 MG/DL (70-100); POTASSIUM SERUM 4.1 MEQ/L (3.5-5.1); SODIUM LEVEL 143 MEQ/L (136-145)
[2017-08-29] MEDS: ALBUTEROL 90 MCG/ACT 8GM HFA INHALER INH (10:35)
[2017-08-29] MEDS: MAALOX 30 ML SUSP *UDC PO (10:53)
[2017-08-29] MEDS: NICOTINE 21MG/24HR 1 EA TRANSDERMAL EXT (18:01)
[2017-08-29] MEDS: ATORVASTATIN 20 MG TAB PO (20:28)
[2017-08-30] MEDS: IPRATROPIUM 0.5MG/ALBUTEROL 2.5MG INH SOL UD 3ML (DUONEB)(J7620) NEB ×2 (01:23→07:51)
[2017-08-30] MEDS: TIOTROPIUM INHALER/CAPSULE (SPIRIVA) INH (07:50)
[2017-08-30] MEDS: SYMBICORT 160/4.5MCG INHALER 6GM INH (07:51)
[2017-08-30] MEDS: busPIRone 5 MG TAB PO (08:36)
[2017-08-30] MEDS: LISINOPRIL *2.5 MG* TAB PO (08:37)
[2017-08-30] MEDS: ASPIRIN 81 MG ENTERIC TAB PO (08:37)
[2017-08-30] MEDS: MULTIVITAMINS/MINERALS THERAP 1 TAB PO (08:37)
[2017-08-30] MEDS: AZITHROMYCIN 250 MG TAB PO (08:37)
[2017-08-30] MEDS: FOLIC ACID 1 MG TAB PO (08:37)
[2017-08-30] MEDS: CitaloPRAM (CeleXA) 20 MG TAB PO (08:37)
[2017-08-30] MEDS: predniSONE 20 MG TAB PO (08:37)
[2017-08-30] MEDS: ENOXAPARIN 40 MG/0.4 ML SYRINGE (J1650) SC (08:38)
[2017-08-30] MEDS: CARVedilol 3.125 MG TAB PO (08:38)
[2017-08-30] MEDS: PREVNAR 13 VACCINE SYRINGE (CPT CODE:90670) IM (09:00)
== END 2017-08-30 14:20 | disposition home or self-care (01) | DRG 191 ==
LOC: M ED 02:04 → M ED INP 06:25 → M MSPAV 08:08
DX: J44.1 Chronic obstructive pulmonary disease with (acute) exacerbation (principal); R64 Cachexia; J96.12 Chronic respiratory failure with hypercapnia; J96.11 Chronic respiratory failure with hypoxia; F17.200 Nicotine dependence, unspecified, uncomplicated; F41.9 Anxiety disorder, unspecified; F32.9 Major depressive disorder, single episode, unspecified; I10 Essential (primary) hypertension; D64.9 Anemia, unspecified; I25.10 Atherosclerotic heart disease of native coronary artery without angina pectoris; Z85.118 Personal history of other malignant neoplasm of bronchus and lung; Z79.82 Long term (current) use of aspirin; Z79.899 Other long term (current) drug therapy; Z91.040 Latex allergy status; Z79.52 Long term (current) use of systemic steroids

== ENCOUNTER 2017-09-03 08:35 | Emergency (ER) | payer OTHER ==
[2017-09-03] MEDS ORDERED: SODIUM CHLORIDE 0.9% INJ 10 ML SYR IV (10:00)
[2017-09-03 10:01] LABS: BASO % 0.1 % (0.0-1.0); HEMATOCRIT 34.1 % (36.0-47.0); IMMATURE GRANULOCYTE % 0.3 % (0-3.0); LYMPH # 0.7 10^3/uL (1.5-4.5); LYMPH % 4.7 % (24.0-44.0); MEAN CORPUSCULAR HEMOGLOBIN 24.2 pg (27.0-33.0); MEAN CORPUSCULAR HGB CONC 29.3 g/dl (32.0-36.5); MEAN CORPUSCULAR VOLUME 82.4 fl (80.0-96.0); MONO # 0.4 10^3/uL (0.0-0.8); MONO % 2.9 % (0.0-5.0); NEUTROPHILS # 14.1 10^3/uL (1.8-7.7); PLATELET COUNT, AUTOMATED 223 10^3/uL (150-450); RED BLOOD COUNT 4.14 10^6/uL (4.00-5.40); RED CELL DISTRIBUTION WIDTH 17.3 % (11.5-14.5); WHITE BLOOD COUNT 15.3 10^3/uL (4.0-10.0)
[2017-09-03 10:17] LABS: ANION GAP 3 MEQ/L (8-16); BLOOD UREA NITROGEN 25 MG/DL (7-18); CALCIUM LEVEL 8.6 MG/DL (8.8-10.2); CARBON DIOXIDE LEVEL 34 MEQ/L (21-32); CHLORIDE LEVEL 104 MEQ/L (98-107); CK-MB VALUE MASS 1.1 NG/ML (<3.6); GLUCOSE, FASTING 111 MG/DL (70-100); POTASSIUM SERUM 4.6 MEQ/L (3.5-5.1); SODIUM LEVEL 141 MEQ/L (136-145); TROPONIN I < 0.02 NG/ML (< 0.10)
[2017-09-03 10:22] LABS: CPK CREATINE PHOSPHOKINASE 20 U/L (26-192); CREATININE FOR GFR 0.86 MG/DL (0.55-1.30); GLOMERULAR FILTRATION RATE > 60.0 (>45)
[2017-09-03 10:23] LABS: LACTIC ACID SEPSIS PROTOCOL 0.9 MMOL/L (0.4-2.0)
[2017-09-03 10:37] LABS: ABG BASE EXCESS 5.9 (-2.0-2.0); ABG HCO3 30.6 MEQ/L (22.0-26.0); ABG O2 SATURATION 98.2 % (95.0-99.0); ABG PARTIAL PRESSURE CO2 44.7 mmHg (35.0-45.0); ABG PARTIAL PRESSURE O2 99.8 mmHg (75.0-100.0); ABG STANDARD HCO3 29.9 MEQ/L (22.0-26.0); ABG pH (ARTERIAL) 7.453 UNITS (7.350-7.450)
== END 2017-09-03 12:13 | disposition home or self-care (01) ==
LOC: M ED 08:35
DX: J44.1 Chronic obstructive pulmonary disease with (acute) exacerbation (principal); F17.210 Nicotine dependence, cigarettes, uncomplicated; Z85.118 Personal history of other malignant neoplasm of bronchus and lung; Z91.040 Latex allergy status; Z91.048 Other nonmedicinal substance allergy status; Z79.899 Other long term (current) drug therapy; Z79.52 Long term (current) use of systemic steroids; Z79.51 Long term (current) use of inhaled steroids; Z79.82 Long term (current) use of aspirin; Z99.81 Dependence on supplemental oxygen
CPT/HCPCS: 71046

== ENCOUNTER 2017-09-12 05:50 | Inpatient (IN) | payer OTHER ==
[2017-09-12 06:11] LABS: ABG BASE EXCESS 7.6 (-2.0-2.0); ABG HCO3 33.4 MEQ/L (22.0-26.0); ABG O2 SATURATION 99.3 % (95.0-99.0); ABG PARTIAL PRESSURE CO2 52.6 mmHg (35.0-45.0); ABG PARTIAL PRESSURE O2 143.2 mmHg (75.0-100.0); ABG STANDARD HCO3 31.5 MEQ/L (22.0-26.0)
[2017-09-12] MEDS ORDERED: IPRATROPIUM 0.5MG/ALBUTEROL 2.5MG INH SOL UD 3ML (DUONEB)(J7620) As Ordered (06:19)
[2017-09-12] MEDS: IPRATROPIUM 0.5MG/ALBUTEROL 2.5MG INH SOL UD 3ML (DUONEB)(J7620) NEB ×2 (06:23→08:06)
[2017-09-12] MEDS: dexameTHASONE 20 MG/5 ML VIAL (J1100) IV (06:30)
[2017-09-12 07:06] LABS: BASO % 0.2 % (0.0-1.0); HEMATOCRIT 33.8 % (36.0-47.0); HEMOGLOBIN 9.8 g/dl (12.0-15.5); IMMATURE GRANULOCYTE % 0.2 % (0-3.0); LYMPH # 0.6 10^3/uL (1.5-4.5); LYMPH % 5.4 % (24.0-44.0); MEAN CORPUSCULAR HEMOGLOBIN 23.4 pg (27.0-33.0); MEAN CORPUSCULAR VOLUME 80.9 fl (80.0-96.0); MONO # 0.5 10^3/uL (0.0-0.8); MONO % 5.2 % (0.0-5.0); PLATELET COUNT, AUTOMATED 260 10^3/uL (150-450); RED BLOOD COUNT 4.18 10^6/uL (4.00-5.40); RED CELL DISTRIBUTION WIDTH 16.7 % (11.5-14.5); WHITE BLOOD COUNT 10.1 10^3/uL (4.0-10.0)
[2017-09-12 07:21] LABS: PROTHROMBIN TIME 12.3 SECONDS (12.1-14.4)
[2017-09-12 07:22] LABS: PARTIAL THROMBOPLASTIN TIME 27.2 SECONDS (25.4-37.6)
[2017-09-12 07:30] LABS: ANION GAP 6 MEQ/L (8-16); BLOOD UREA NITROGEN 16 MG/DL (7-18); CALCIUM LEVEL 8.9 MG/DL (8.8-10.2); CARBON DIOXIDE LEVEL 36 MEQ/L (21-32); CHLORIDE LEVEL 99 MEQ/L (98-107); CPK CREATINE PHOSPHOKINASE 30 U/L (26-192); CREATININE FOR GFR 0.78 MG/DL (0.55-1.30); GLOMERULAR FILTRATION RATE > 60.0 (>45); GLUCOSE, FASTING 115 MG/DL (70-100); POTASSIUM SERUM 3.9 MEQ/L (3.5-5.1); SODIUM LEVEL 141 MEQ/L (136-145); TROPONIN I < 0.02 NG/ML (< 0.10)
[2017-09-12 07:31] LABS: MB/CK RELATIVE INDEX 6.66 (< OR =4); NT-PRO BNP 471 PG/ML (<125)
[2017-09-12] MEDS ORDERED: ALBUTEROL SULFATE 2.5 MG/0.5 ML INH NEB SOLN INH (08:45)
[2017-09-12] MEDS ORDERED: ACETAMINOPHEN TAB 650MG DOSE (2X325MG) PO (08:45)
[2017-09-12] MEDS ORDERED: ADVAIR HFA 115/21MCG INHALER INH (09:00)
[2017-09-12] MEDS: SYMBICORT 160/4.5MCG INHALER 6GM INH ×2 (09:41→20:17)
[2017-09-12] MEDS: busPIRone 5 MG TAB PO ×4 (11:16→20:11)
[2017-09-12] MEDS: CitaloPRAM (CeleXA) 20 MG TAB PO (11:16)
[2017-09-12] MEDS: DOCUSATE SODIUM 100 MG CAP PO ×2 (11:17→20:10)
[2017-09-12] MEDS: CARVedilol 3.125 MG TAB PO ×2 (11:18→20:11)
[2017-09-12] MEDS: FOLIC ACID 1 MG TAB PO (11:18)
[2017-09-12] MEDS: ATORVASTATIN 20 MG TAB PO (11:19)
[2017-09-12] MEDS: LISINOPRIL *2.5 MG* TAB PO (11:19)
[2017-09-12] MEDS: SENOKOT S TAB PO ×2 (11:20→20:10)
[2017-09-12] MEDS: MULTIVITAMINS/MINERALS THERAP 1 TAB PO (11:20)
[2017-09-12] MEDS: ENOXAPARIN 40 MG/0.4 ML SYRINGE (J1650) SC (11:21)
[2017-09-12] MEDS: NICOTINE 21MG/24HR 1 EA TRANSDERMAL TD (11:21)
[2017-09-12] MEDS: IPRATROPIUM 0.5MG/ALBUTEROL 2.5MG INH SOL UD 3ML (DUONEB)(J7620) INH ×3 (12:12→20:00)
[2017-09-12] MEDS ORDERED: IPRATROPIUM 0.5MG/ALBUTEROL 2.5MG INH SOL UD 3ML (DUONEB)(J7620) INH (13:00)
[2017-09-13 06:03] LABS: ABG BASE EXCESS 8.4 (-2.0-2.0); ABG HCO3 33.9 MEQ/L (22.0-26.0); ABG O2 SATURATION 99.2 % (95.0-99.0); ABG PARTIAL PRESSURE O2 141.9 mmHg (75.0-100.0); ABG STANDARD HCO3 32.2 MEQ/L (22.0-26.0); ABG TOTAL CO2 35.5 MEQ/L (23.0-31.0); ABG pH (ARTERIAL) 7.432 UNITS (7.350-7.450)
[2017-09-13 06:59] LABS: HEMOGLOBIN 8.9 g/dl (12.0-15.5); MEAN CORPUSCULAR HEMOGLOBIN 23.4 pg (27.0-33.0); MEAN CORPUSCULAR HGB CONC 28.7 g/dl (32.0-36.5); MEAN CORPUSCULAR VOLUME 81.6 fl (80.0-96.0); PLATELET COUNT, AUTOMATED 307 10^3/uL (150-450); RED CELL DISTRIBUTION WIDTH 16.8 % (11.5-14.5); WHITE BLOOD COUNT 8.5 10^3/uL (4.0-10.0)
[2017-09-13 07:19] LABS: ALBUMIN 2.7 GM/DL (3.2-5.2); ALBUMIN/GLOBULIN RATIO 0.73 (1.00-1.93); ALKALINE PHOSPHATASE 75 U/L (45-117); ALT/SGPT 23 U/L (12-78); ANION GAP 4 MEQ/L (8-16); AST/SGOT 12 U/L (7-37); BILIRUBIN,TOTAL 0.2 MG/DL (0.2-1.0); BLOOD UREA NITROGEN 20 MG/DL (7-18); CALCIUM LEVEL 9.1 MG/DL (8.8-10.2); CARBON DIOXIDE LEVEL 38 MEQ/L (21-32); CHLORIDE LEVEL 103 MEQ/L (98-107); CREATININE FOR GFR 0.88 MG/DL (0.55-1.30); GLOMERULAR FILTRATION RATE > 60.0 (>45); GLUCOSE, FASTING 80 MG/DL (70-100); MAGNESIUM LEVEL 2.1 MG/DL (1.8-2.4); PHOSPHORUS LEVEL 3.7 MG/DL (2.5-4.9); POTASSIUM SERUM 3.9 MEQ/L (3.5-5.1); SODIUM LEVEL 145 MEQ/L (136-145); TOTAL PROTEIN 6.4 GM/DL (6.4-8.2)
[2017-09-13] MEDS: SYMBICORT 160/4.5MCG INHALER 6GM INH ×2 (07:51→18:21)
[2017-09-13] MEDS: IPRATROPIUM 0.5MG/ALBUTEROL 2.5MG INH SOL UD 3ML (DUONEB)(J7620) INH ×4 (07:51→18:22)
[2017-09-13] MEDS ORDERED: ISOVUE-370 76% 100ML VIAL (Q9967) As Ordered (08:02)
[2017-09-13] MEDS: ATORVASTATIN 20 MG TAB PO (08:58)
[2017-09-13] MEDS: busPIRone 5 MG TAB PO ×4 (08:58→20:49)
[2017-09-13] MEDS: DOCUSATE SODIUM 100 MG CAP PO ×2 (08:58→20:49)
[2017-09-13] MEDS: MULTIVITAMINS/MINERALS THERAP 1 TAB PO (08:58)
[2017-09-13] MEDS: FOLIC ACID 1 MG TAB PO (08:58)
[2017-09-13] MEDS: LISINOPRIL *2.5 MG* TAB PO (08:58)
[2017-09-13] MEDS: AZITHROMYCIN INJ 500 MG, VIAL MATE ADAPTER 1 EACH in D5W 250 ML IV (08:58)
[2017-09-13] MEDS: SENOKOT S TAB PO ×2 (08:59→20:49)
[2017-09-13] MEDS: CitaloPRAM (CeleXA) 20 MG TAB PO (08:59)
[2017-09-13] MEDS: predniSONE 20 MG TAB PO (08:59)
[2017-09-13] MEDS: ENOXAPARIN 40 MG/0.4 ML SYRINGE (J1650) SC (08:59)
[2017-09-13] MEDS: CARVedilol 3.125 MG TAB PO ×2 (08:59→20:50)
[2017-09-13] MEDS: NICOTINE 21MG/24HR 1 EA TRANSDERMAL TD (09:00)
[2017-09-14 06:55] LABS: HEMATOCRIT 30.6 % (36.0-47.0); HEMOGLOBIN 8.9 g/dl (12.0-15.5); MEAN CORPUSCULAR HEMOGLOBIN 23.8 pg (27.0-33.0); MEAN CORPUSCULAR HGB CONC 29.1 g/dl (32.0-36.5); MEAN CORPUSCULAR VOLUME 81.8 fl (80.0-96.0); PLATELET COUNT, AUTOMATED 313 10^3/uL (150-450); RED BLOOD COUNT 3.74 10^6/uL (4.00-5.40); RED CELL DISTRIBUTION WIDTH 16.7 % (11.5-14.5); WHITE BLOOD COUNT 7.2 10^3/uL (4.0-10.0)
[2017-09-14 07:18] LABS: ALBUMIN 2.7 GM/DL (3.2-5.2); ALKALINE PHOSPHATASE 69 U/L (45-117); ALT/SGPT 21 U/L (12-78); ANION GAP 4 MEQ/L (8-16); AST/SGOT 16 U/L (7-37); BILIRUBIN,TOTAL 0.3 MG/DL (0.2-1.0); BLOOD UREA NITROGEN 19 MG/DL (7-18); CALCIUM LEVEL 8.3 MG/DL (8.8-10.2); CARBON DIOXIDE LEVEL 35 MEQ/L (21-32); CHLORIDE LEVEL 102 MEQ/L (98-107); CREATININE FOR GFR 0.77 MG/DL (0.55-1.30); GLOMERULAR FILTRATION RATE > 60.0 (>45); GLUCOSE, FASTING 101 MG/DL (70-100); POTASSIUM SERUM 3.7 MEQ/L (3.5-5.1); SODIUM LEVEL 141 MEQ/L (136-145); TOTAL PROTEIN 5.7 GM/DL (6.4-8.2)
[2017-09-14] MEDS: SYMBICORT 160/4.5MCG INHALER 6GM INH (07:36)
[2017-09-14] MEDS: IPRATROPIUM 0.5MG/ALBUTEROL 2.5MG INH SOL UD 3ML (DUONEB)(J7620) INH ×2 (08:00→11:34)
[2017-09-14] MEDS: AZITHROMYCIN INJ 500 MG, VIAL MATE ADAPTER 1 EACH in D5W 250 ML IV (08:40)
[2017-09-14] MEDS: NICOTINE 21MG/24HR 1 EA TRANSDERMAL TD (08:40)
[2017-09-14] MEDS: ENOXAPARIN 40 MG/0.4 ML SYRINGE (J1650) SC (08:41)
[2017-09-14] MEDS: busPIRone 5 MG TAB PO ×2 (08:41→12:31)
[2017-09-14] MEDS: LISINOPRIL *2.5 MG* TAB PO (08:41)
[2017-09-14] MEDS: CitaloPRAM (CeleXA) 20 MG TAB PO (08:41)
[2017-09-14] MEDS: ATORVASTATIN 20 MG TAB PO (08:41)
[2017-09-14] MEDS: FOLIC ACID 1 MG TAB PO (08:42)
[2017-09-14] MEDS: CARVedilol 3.125 MG TAB PO (08:42)
[2017-09-14] MEDS: MULTIVITAMINS/MINERALS THERAP 1 TAB PO (08:42)
[2017-09-14] MEDS: predniSONE 20 MG TAB PO (08:42)
[2017-09-14] MEDS: DOCUSATE SODIUM 100 MG CAP PO (08:42)
[2017-09-14] MEDS: SENOKOT S TAB PO (08:42)
== END 2017-09-14 13:32 | disposition home or self-care (01) | DRG 190 ==
LOC: M ED 05:50 → M ED INP 09:02 → M MSPAV 13:00
DX: J44.1 Chronic obstructive pulmonary disease with (acute) exacerbation (principal); J96.21 Acute and chronic respiratory failure with hypoxia; R64 Cachexia; Z66 Do not resuscitate; E78.5 Hyperlipidemia, unspecified; I10 Essential (primary) hypertension; F41.9 Anxiety disorder, unspecified; F32.9 Major depressive disorder, single episode, unspecified; Z92.21 Personal history of antineoplastic chemotherapy; Z79.82 Long term (current) use of aspirin; Z79.899 Other long term (current) drug therapy; Z91.048 Other nonmedicinal substance allergy status; Z91.040 Latex allergy status; Z90.710 Acquired absence of both cervix and uterus; Z90.2 Acquired absence of lung [part of]; Z72.0 Tobacco use

== ENCOUNTER 2017-11-01 22:29 | Emergency (ER) | payer OTHER ==
[2017-11-01 23:11] LABS: BASO # 0.1 10^3/uL (0.0-0.2); BASO % 0.8 % (0.0-1.0); HEMATOCRIT 36.4 % (36.0-47.0); HEMOGLOBIN 9.9 g/dl (12.0-15.5); IMMATURE GRANULOCYTE % 0.5 % (0-3.0); LYMPH # 2.1 10^3/uL (1.5-4.5); LYMPH % 14.9 % (24.0-44.0); MEAN CORPUSCULAR HEMOGLOBIN 21.5 pg (27.0-33.0); MEAN CORPUSCULAR HGB CONC 27.2 g/dl (32.0-36.5); MONO # 1.1 10^3/uL (0.0-0.8); MONO % 7.6 % (0.0-5.0); NEUTROPHILS # 10.8 10^3/uL (1.8-7.7); NEUTROPHILS % 76.2 % (36.0-66.0); PLATELET COUNT, AUTOMATED 352 10^3/uL (150-450); RED BLOOD COUNT 4.61 10^6/uL (4.00-5.40); RED CELL DISTRIBUTION WIDTH 17.2 % (11.5-14.5); WHITE BLOOD COUNT 14.2 10^3/uL (4.0-10.0)
[2017-11-01 23:12] LABS: VENOUS HCO3 36.4 MEQ/L (23.0-27.0); VENOUS O2 SATURATION 55.4 % (60.0-80.0); VENOUS PARTIAL PRESSURE CO2 75.6 mmHg (38.0-50.0); VENOUS PARTIAL PRESSURE O2 29.7 mmHg (30.0-50.0); VENOUS PH 7.301 UNITS (7.330-7.430); VENOUS TOTAL CO2 38.8 MEQ/L (24.0-28.0)
[2017-11-01 23:29] LABS: ANION GAP 5 MEQ/L (8-16); BLOOD UREA NITROGEN 12 MG/DL (7-18); CALCIUM LEVEL 9.2 MG/DL (8.8-10.2); CARBON DIOXIDE LEVEL 37 MEQ/L (21-32); CHLORIDE LEVEL 97 MEQ/L (98-107); CK-MB VALUE MASS 2.9 NG/ML (<3.6); CPK CREATINE PHOSPHOKINASE 102 U/L (26-192); CREATININE FOR GFR 0.78 MG/DL (0.55-1.30); GLOMERULAR FILTRATION RATE > 60.0 (>45); GLUCOSE, FASTING 111 MG/DL (70-100); MB/CK RELATIVE INDEX 2.84 (< OR =4); NT-PRO BNP 330 PG/ML (<125); POTASSIUM SERUM 4.5 MEQ/L (3.5-5.1); SODIUM LEVEL 139 MEQ/L (136-145); TROPONIN I < 0.02 NG/ML (< 0.10)
[2017-11-02 00:21] LABS: ABG BASE EXCESS 7.3 (-2.0-2.0); ABG HCO3 33.8 MEQ/L (22.0-26.0); ABG PARTIAL PRESSURE CO2 58.7 mmHg (35.0-45.0); ABG PARTIAL PRESSURE O2 105.3 mmHg (75.0-100.0); ABG STANDARD HCO3 31.2 MEQ/L (22.0-26.0); ABG TOTAL CO2 35.6 MEQ/L (23.0-31.0); ABG pH (ARTERIAL) 7.378 UNITS (7.350-7.450)
[2017-11-02] MEDS: AZITHROMYCIN 250 MG TAB PO (00:52)
== END 2017-11-02 01:12 | disposition home or self-care (01) ==
LOC: M ED 11-02 01:12
DX: J44.1 Chronic obstructive pulmonary disease with (acute) exacerbation (principal); R91.8 Other nonspecific abnormal finding of lung field; R00.0 Tachycardia, unspecified; Z85.118 Personal history of other malignant neoplasm of bronchus and lung; Z90.2 Acquired absence of lung [part of]; Z99.81 Dependence on supplemental oxygen; Z91.040 Latex allergy status; Z91.048 Other nonmedicinal substance allergy status; Z79.51 Long term (current) use of inhaled steroids; Z79.899 Other long term (current) drug therapy; Z79.82 Long term (current) use of aspirin
CPT/HCPCS: 71046

== ENCOUNTER 2017-11-09 15:41 | Inpatient (IN) | payer OTHER ==
[2017-11-09 16:17] LABS: BASO # 0.1 10^3/uL (0.0-0.2); BASO % 0.5 % (0.0-1.0); HEMATOCRIT 32.3 % (36.0-47.0); HEMOGLOBIN 8.8 g/dl (12.0-15.5); IMMATURE GRANULOCYTE % 0.4 % (0-3.0); LYMPH # 1.6 10^3/uL (1.5-4.5); LYMPH % 11.7 % (24.0-44.0); MEAN CORPUSCULAR HEMOGLOBIN 21.3 pg (27.0-33.0); MEAN CORPUSCULAR HGB CONC 27.2 g/dl (32.0-36.5); MEAN CORPUSCULAR VOLUME 78.2 fl (80.0-96.0); MONO # 1.2 10^3/uL (0.0-0.8); MONO % 8.9 % (0.0-5.0); NEUTROPHILS # 10.5 10^3/uL (1.8-7.7); NEUTROPHILS % 78.5 % (36.0-66.0); PLATELET COUNT, AUTOMATED 445 10^3/uL (150-450); RED BLOOD COUNT 4.13 10^6/uL (4.00-5.40); RED CELL DISTRIBUTION WIDTH 17.2 % (11.5-14.5); WHITE BLOOD COUNT 13.3 10^3/uL (4.0-10.0)
[2017-11-09 16:25] LABS: ANION GAP 5 MEQ/L (8-16); BLOOD UREA NITROGEN 15 MG/DL (7-18); CARBON DIOXIDE LEVEL 36 MEQ/L (21-32); CHLORIDE LEVEL 99 MEQ/L (98-107); CREATININE FOR GFR 0.66 MG/DL (0.55-1.30); GLOMERULAR FILTRATION RATE > 60.0 (>45); GLUCOSE, FASTING 104 MG/DL (70-100); POTASSIUM SERUM 4.4 MEQ/L (3.5-5.1); SODIUM LEVEL 140 MEQ/L (136-145)
[2017-11-09 16:41] LABS: LACTIC ACID SEPSIS PROTOCOL 0.6 MMOL/L (0.4-2.0)
[2017-11-09] MEDS: IPRATROPIUM 0.5MG/ALBUTEROL 2.5MG INH SOL UD 3ML (DUONEB)(J7620) NEB ×2 (16:41→21:41)
[2017-11-09 16:45] LABS: CPK CREATINE PHOSPHOKINASE 36 U/L (26-192); MB/CK RELATIVE INDEX 3.89 (< OR =4); TROPONIN I < 0.02 NG/ML (< 0.10)
[2017-11-09] MEDS ORDERED: ISOVUE-370 76% 100ML VIAL (Q9967) As Ordered (17:43)
[2017-11-09 17:51] LABS: C REACTIVE PROTEIN QUANTITATIV 0.46 MG/DL (0.00-0.30); NT-PRO BNP 288 PG/ML (<125)
[2017-11-09] MEDS ORDERED: ONDANSETRON 4 MG TAB (S0181) PO (18:30)
[2017-11-09] MEDS ORDERED: methylPREDNISolone INJ 40 MG/1 ML VIAL (J2920) IV (18:30)
[2017-11-09 19:54] LABS: HEMOGLOBIN 8.7 g/dl (12.0-15.5)
[2017-11-09] MEDS: CARVedilol 3.125 MG TAB PO (21:00)
[2017-11-09] MEDS: busPIRone 5 MG TAB PO (22:17)
[2017-11-09] MEDS: methylPREDNISolone INJ 125 MG/2 ML VIAL (J2930) IV (22:18)
[2017-11-09] MEDS: SENOKOT S TAB PO (22:18)
[2017-11-09] MEDS: HEPARIN SOD (PORCINE) 5000 UNITS/ML VIAL SQ (22:19)
[2017-11-09] MEDS: ACETAMINOPHEN TAB 650MG DOSE (2X325MG) PO (22:47)
[2017-11-10] MEDS: SYMBICORT 160/4.5MCG INHALER 6GM INH ×4 (00:03→21:13)
[2017-11-10] MEDS: IPRATROPIUM 0.5MG/ALBUTEROL 2.5MG INH SOL UD 3ML (DUONEB)(J7620) NEB ×3 (00:04→07:35)
[2017-11-10 00:35] LABS: CPK CREATINE PHOSPHOKINASE 31 U/L (26-192); MB/CK RELATIVE INDEX 4.19 (< OR =4); TROPONIN I < 0.02 NG/ML (< 0.10)
[2017-11-10 05:42] LABS: HEMATOCRIT 27.9 % (36.0-47.0); HEMOGLOBIN 7.6 g/dl (12.0-15.5); MEAN CORPUSCULAR HGB CONC 27.2 g/dl (32.0-36.5); MEAN CORPUSCULAR VOLUME 77.1 fl (80.0-96.0); PLATELET COUNT, AUTOMATED 404 10^3/uL (150-450); RED BLOOD COUNT 3.62 10^6/uL (4.00-5.40); RED CELL DISTRIBUTION WIDTH 17.3 % (11.5-14.5); RETIC HEMOGLOBIN EQUIVALENT 18.4 pg (24-36); RETICULOCYTE # 51.4 10^9/L (17-77); RETICULOCYTE % 1.4 % (0.5-1.5); WHITE BLOOD COUNT 7.7 10^3/uL (4.0-10.0)
[2017-11-10 06:04] LABS: ALBUMIN 2.6 GM/DL (3.2-5.2); ALBUMIN/GLOBULIN RATIO 0.68 (1.00-1.93); ALKALINE PHOSPHATASE 58 U/L (45-117); ALT/SGPT 17 U/L (12-78); ANION GAP 4 MEQ/L (8-16); AST/SGOT 10 U/L (7-37); BILIRUBIN,TOTAL 0.2 MG/DL (0.2-1.0); BLOOD UREA NITROGEN 17 MG/DL (7-18); CALCIUM LEVEL 8.9 MG/DL (8.8-10.2); CARBON DIOXIDE LEVEL 35 MEQ/L (21-32); CHLORIDE LEVEL 101 MEQ/L (98-107); CREATININE FOR GFR 0.74 MG/DL (0.55-1.30); FREE THYROXINE INDEX 2.7 % (1.3-4.8); GLOMERULAR FILTRATION RATE > 60.0 (>45); GLUCOSE, FASTING 131 MG/DL (70-100); MAGNESIUM LEVEL 2.2 MG/DL (1.8-2.4); POTASSIUM SERUM 4.6 MEQ/L (3.5-5.1); SODIUM LEVEL 140 MEQ/L (136-145); T UPTAKE 36 % (30-39); THYROID STIMULATING HORMONE 0.494 uIU/ML (0.358-3.740); THYROXINE (T4) 7.6 UG/DL (4.5-12.0); TOTAL PROTEIN 6.4 GM/DL (6.4-8.2)
[2017-11-10 06:09] LABS: FERRITIN 9 NG/ML (8-252); IRON (FE) 15 UG/DL (50-170); PERCENT SATURATION 4.1 % (13.2-45.0); TOTAL IRON BINDING CAPACITY 367 UG/DL (250-450)
[2017-11-10] MEDS: TIOTROPIUM INHALER/CAPSULE (SPIRIVA) INH (07:31)
[2017-11-10] MEDS: ALBUTEROL SULFATE 2.5 MG/0.5 ML INH NEB SOLN NEB ×7 (08:00→21:13)
[2017-11-10] MEDS: NICOTINE 14 MG/24 HR TRANSDERMAL TD (08:08)
[2017-11-10] MEDS: ATORVASTATIN 20 MG TAB PO (08:09)
[2017-11-10] MEDS: FOLIC ACID 1 MG TAB PO (08:09)
[2017-11-10] MEDS: CitaloPRAM (CeleXA) 20 MG TAB PO (08:10)
[2017-11-10] MEDS: CARVedilol 3.125 MG TAB PO ×2 (08:10→21:08)
[2017-11-10] MEDS: methylPREDNISolone INJ 40 MG/1 ML VIAL (J2920) IV (08:11)
[2017-11-10] MEDS: SENOKOT S TAB PO ×2 (08:11→21:08)
[2017-11-10] MEDS: LISINOPRIL *2.5 MG* TAB PO (08:11)
[2017-11-10] MEDS: MULTIVITAMINS/MINERALS THERAP 1 TAB PO (08:11)
[2017-11-10] MEDS: HEPARIN SOD (PORCINE) 5000 UNITS/ML VIAL SQ ×2 (08:12→21:07)
[2017-11-10] MEDS: busPIRone 5 MG TAB PO ×4 (08:16→21:08)
[2017-11-10 08:29] LABS: CK-MB VALUE MASS < 1.0 NG/ML (<3.6); CPK CREATINE PHOSPHOKINASE 29 U/L (26-192); MB/CK RELATIVE INDEX 3.45 (< OR =4); TROPONIN I < 0.02 NG/ML (< 0.10)
[2017-11-10] MEDS: INFLUENZA VIRUS VACCINE HIGH DOSE 0.5 ML SYRINGE (90662) IM (08:43)
[2017-11-10] MEDS ORDERED: ENOXAPARIN 30 MG/0.3 ML SYR (J1650) SC (09:00)
[2017-11-10] MEDS: predniSONE 20 MG TAB PO (12:07)
[2017-11-10 16:22] LABS: HEMATOCRIT 30.9 % (36.0-47.0); HEMOGLOBIN 8.4 g/dl (12.0-15.5)
[2017-11-10 16:32] LABS: CK-MB VALUE MASS < 1.0 NG/ML (<3.6); CPK CREATINE PHOSPHOKINASE 32 U/L (26-192); MB/CK RELATIVE INDEX 3.12 (< OR =4); TROPONIN I < 0.02 NG/ML (< 0.10)
[2017-11-11] MEDS: ALBUTEROL SULFATE 2.5 MG/0.5 ML INH NEB SOLN NEB ×6 (03:16→19:48)
[2017-11-11 06:27] LABS: HEMATOCRIT 29.2 % (36.0-47.0); HEMOGLOBIN 7.8 g/dl (12.0-15.5); MEAN CORPUSCULAR HGB CONC 26.7 g/dl (32.0-36.5); MEAN CORPUSCULAR VOLUME 78.5 fl (80.0-96.0); PLATELET COUNT, AUTOMATED 442 10^3/uL (150-450); RED BLOOD COUNT 3.72 10^6/uL (4.00-5.40); RED CELL DISTRIBUTION WIDTH 17.2 % (11.5-14.5); WHITE BLOOD COUNT 12.4 10^3/uL (4.0-10.0)
[2017-11-11 06:47] LABS: ALBUMIN 2.6 GM/DL (3.2-5.2); ALBUMIN/GLOBULIN RATIO 0.65 (1.00-1.93); ALKALINE PHOSPHATASE 60 U/L (45-117); ALT/SGPT 17 U/L (12-78); ANION GAP 5 MEQ/L (8-16); AST/SGOT 11 U/L (7-37); BILIRUBIN,TOTAL 0.1 MG/DL (0.2-1.0); BLOOD UREA NITROGEN 19 MG/DL (7-18); CALCIUM LEVEL 8.7 MG/DL (8.8-10.2); CARBON DIOXIDE LEVEL 37 MEQ/L (21-32); CHLORIDE LEVEL 105 MEQ/L (98-107); CREATININE FOR GFR 0.71 MG/DL (0.55-1.30); GLOMERULAR FILTRATION RATE > 60.0 (>45); GLUCOSE, FASTING 91 MG/DL (70-100); MAGNESIUM LEVEL 2.2 MG/DL (1.8-2.4); POTASSIUM SERUM 4.2 MEQ/L (3.5-5.1); SODIUM LEVEL 147 MEQ/L (136-145); TOTAL PROTEIN 6.6 GM/DL (6.4-8.2)
[2017-11-11] MEDS: TIOTROPIUM INHALER/CAPSULE (SPIRIVA) INH (07:28)
[2017-11-11] MEDS: NICOTINE 14 MG/24 HR TRANSDERMAL TD (08:21)
[2017-11-11] MEDS: HEPARIN SOD (PORCINE) 5000 UNITS/ML VIAL SQ ×2 (08:21→21:25)
[2017-11-11] MEDS: ATORVASTATIN 20 MG TAB PO (08:21)
[2017-11-11] MEDS: CitaloPRAM (CeleXA) 20 MG TAB PO (08:21)
[2017-11-11] MEDS: predniSONE 20 MG TAB PO (08:22)
[2017-11-11] MEDS: ASPIRIN 81 MG ENTERIC TAB PO (08:22)
[2017-11-11] MEDS: SENOKOT S TAB PO ×2 (08:22→21:25)
[2017-11-11] MEDS: LISINOPRIL *2.5 MG* TAB PO (08:22)
[2017-11-11] MEDS: MULTIVITAMINS/MINERALS THERAP 1 TAB PO (08:22)
[2017-11-11] MEDS: FOLIC ACID 1 MG TAB PO (08:22)
[2017-11-11] MEDS: busPIRone 5 MG TAB PO ×4 (08:22→21:24)
[2017-11-11] MEDS: CARVedilol 3.125 MG TAB PO ×2 (08:23→21:25)
[2017-11-11 09:36] LABS: FOLATE > 24.0 NG/ML (>5.4)
[2017-11-11] MEDS: FERROUS GLUCONATE 324 MG TAB PO ×2 (13:05→21:25)
[2017-11-11] MEDS: NS 0.45% 1,000 ML IV (13:05)
[2017-11-11] MEDS: BISACODYL 5 MG TAB PO (13:05)
[2017-11-11] MEDS: SYMBICORT 160/4.5MCG INHALER 6GM INH (19:48)
[2017-11-12] MEDS: ACETAMINOPHEN TAB 650MG DOSE (2X325MG) PO ×2 (02:06→23:43)
[2017-11-12] MEDS: ALBUTEROL SULFATE 2.5 MG/0.5 ML INH NEB SOLN NEB ×5 (02:31→19:58)
[2017-11-12 05:54] LABS: HEMATOCRIT 31.3 % (36.0-47.0); HEMOGLOBIN 8.4 g/dl (12.0-15.5); MEAN CORPUSCULAR HEMOGLOBIN 20.6 pg (27.0-33.0); MEAN CORPUSCULAR HGB CONC 26.8 g/dl (32.0-36.5); MEAN CORPUSCULAR VOLUME 76.7 fl (80.0-96.0); PLATELET COUNT, AUTOMATED 450 10^3/uL (150-450); RED BLOOD COUNT 4.08 10^6/uL (4.00-5.40); RED CELL DISTRIBUTION WIDTH 17.3 % (11.5-14.5); WHITE BLOOD COUNT 15.1 10^3/uL (4.0-10.0)
[2017-11-12 06:15] LABS: ALBUMIN 2.7 GM/DL (3.2-5.2); ALBUMIN/GLOBULIN RATIO 0.84 (1.00-1.93); ALKALINE PHOSPHATASE 56 U/L (45-117); ALT/SGPT 18 U/L (12-78); ANION GAP 5 MEQ/L (8-16); AST/SGOT 12 U/L (7-37); BILIRUBIN,TOTAL 0.2 MG/DL (0.2-1.0); BLOOD UREA NITROGEN 18 MG/DL (7-18); CALCIUM LEVEL 8.7 MG/DL (8.8-10.2); CARBON DIOXIDE LEVEL 36 MEQ/L (21-32); CHLORIDE LEVEL 104 MEQ/L (98-107); CREATININE FOR GFR 0.71 MG/DL (0.55-1.30); GLOMERULAR FILTRATION RATE > 60.0 (>45); GLUCOSE, FASTING 67 MG/DL (70-100); MAGNESIUM LEVEL 2.1 MG/DL (1.8-2.4); POTASSIUM SERUM 4.2 MEQ/L (3.5-5.1); SODIUM LEVEL 145 MEQ/L (136-145); TOTAL PROTEIN 5.9 GM/DL (6.4-8.2)
[2017-11-12] MEDS: TIOTROPIUM INHALER/CAPSULE (SPIRIVA) INH (07:26)
[2017-11-12] MEDS: SYMBICORT 160/4.5MCG INHALER 6GM INH ×2 (07:26→19:59)
[2017-11-12] MEDS: busPIRone 5 MG TAB PO ×4 (08:26→20:41)
[2017-11-12] MEDS: HEPARIN SOD (PORCINE) 5000 UNITS/ML VIAL SQ ×2 (08:26→20:41)
[2017-11-12] MEDS: ATORVASTATIN 20 MG TAB PO (08:26)
[2017-11-12] MEDS: NICOTINE 14 MG/24 HR TRANSDERMAL TD (08:26)
[2017-11-12] MEDS: LISINOPRIL *2.5 MG* TAB PO (08:26)
[2017-11-12] MEDS: FERROUS GLUCONATE 324 MG TAB PO ×2 (08:27→20:42)
[2017-11-12] MEDS: predniSONE 20 MG TAB PO (08:27)
[2017-11-12] MEDS: FOLIC ACID 1 MG TAB PO (08:27)
[2017-11-12] MEDS: CitaloPRAM (CeleXA) 20 MG TAB PO (08:27)
[2017-11-12] MEDS: BISACODYL 5 MG TAB PO (08:27)
[2017-11-12] MEDS: MULTIVITAMINS/MINERALS THERAP 1 TAB PO (08:27)
[2017-11-12] MEDS: SENOKOT S TAB PO ×3 (08:27→20:43)
[2017-11-12] MEDS: CARVedilol 3.125 MG TAB PO ×2 (08:28→20:41)
[2017-11-12 10:44] LABS: BEDSIDE GLUCOSE 110 MG/DL (80-115)
[2017-11-12] MEDS: NS 0.45% 1,000 ML IV (12:35)
[2017-11-13] MEDS: ALBUTEROL SULFATE 2.5 MG/0.5 ML INH NEB SOLN NEB ×4 (01:52→21:24)
[2017-11-13 06:20] LABS: HEMATOCRIT 29.3 % (36.0-47.0); MEAN CORPUSCULAR HEMOGLOBIN 20.9 pg (27.0-33.0); MEAN CORPUSCULAR HGB CONC 27.3 g/dl (32.0-36.5); MEAN CORPUSCULAR VOLUME 76.7 fl (80.0-96.0); PLATELET COUNT, AUTOMATED 413 10^3/uL (150-450); RED BLOOD COUNT 3.82 10^6/uL (4.00-5.40); RED CELL DISTRIBUTION WIDTH 17.2 % (11.5-14.5); WHITE BLOOD COUNT 9.4 10^3/uL (4.0-10.0)
[2017-11-13 06:36] LABS: ALBUMIN 2.5 GM/DL (3.2-5.2); ALBUMIN/GLOBULIN RATIO 0.76 (1.00-1.93); ALKALINE PHOSPHATASE 52 U/L (45-117); ALT/SGPT 17 U/L (12-78); ANION GAP 4 MEQ/L (8-16); AST/SGOT 12 U/L (7-37); BILIRUBIN,TOTAL 0.2 MG/DL (0.2-1.0); BLOOD UREA NITROGEN 15 MG/DL (7-18); CALCIUM LEVEL 8.4 MG/DL (8.8-10.2); CARBON DIOXIDE LEVEL 35 MEQ/L (21-32); CHLORIDE LEVEL 102 MEQ/L (98-107); CREATININE FOR GFR 0.69 MG/DL (0.55-1.30); GLOMERULAR FILTRATION RATE > 60.0 (>45); GLUCOSE, FASTING 69 MG/DL (70-100); MAGNESIUM LEVEL 2.1 MG/DL (1.8-2.4); POTASSIUM SERUM 3.9 MEQ/L (3.5-5.1); SODIUM LEVEL 141 MEQ/L (136-145); TOTAL PROTEIN 5.8 GM/DL (6.4-8.2)
[2017-11-13] MEDS: SYMBICORT 160/4.5MCG INHALER 6GM INH ×2 (08:01→21:23)
[2017-11-13] MEDS: TIOTROPIUM INHALER/CAPSULE (SPIRIVA) INH (08:01)
[2017-11-13] MEDS: FERROUS GLUCONATE 324 MG TAB PO ×2 (08:53→21:54)
[2017-11-13] MEDS: HEPARIN SOD (PORCINE) 5000 UNITS/ML VIAL SQ ×2 (08:53→21:55)
[2017-11-13] MEDS: NICOTINE 14 MG/24 HR TRANSDERMAL TD (08:53)
[2017-11-13] MEDS: LISINOPRIL *2.5 MG* TAB PO (08:53)
[2017-11-13] MEDS: ASPIRIN 81 MG ENTERIC TAB PO (08:54)
[2017-11-13] MEDS: CitaloPRAM (CeleXA) 20 MG TAB PO (08:54)
[2017-11-13] MEDS: SENOKOT S TAB PO ×2 (08:54→21:54)
[2017-11-13] MEDS: CARVedilol 3.125 MG TAB PO ×2 (08:54→21:54)
[2017-11-13] MEDS: busPIRone 5 MG TAB PO ×4 (08:54→21:54)
[2017-11-13] MEDS: predniSONE 20 MG TAB PO (08:54)
[2017-11-13] MEDS: MULTIVITAMINS/MINERALS THERAP 1 TAB PO (08:54)
[2017-11-13] MEDS: ATORVASTATIN 20 MG TAB PO (08:54)
[2017-11-13] MEDS: BISACODYL 5 MG TAB PO (08:55)
[2017-11-13] MEDS: FOLIC ACID 1 MG TAB PO (08:55)
[2017-11-13 11:27] LABS: NT-PRO BNP 284 PG/ML (<125)
[2017-11-13] MEDS: MOXIFLOXACIN 400 MG TAB PO (11:53)
[2017-11-13] MEDS: FUROSEMIDE 40 MG/4 ML VIAL (J1940) IV (11:53)
[2017-11-14] MEDS: ALBUTEROL SULFATE 2.5 MG/0.5 ML INH NEB SOLN NEB ×2 (02:48→07:41)
[2017-11-14] MEDS: MOXIFLOXACIN 400 MG TAB PO (05:06)
[2017-11-14 06:10] LABS: HEMATOCRIT 30.1 % (36.0-47.0); HEMOGLOBIN 8.3 g/dl (12.0-15.5); MEAN CORPUSCULAR HEMOGLOBIN 20.8 pg (27.0-33.0); MEAN CORPUSCULAR HGB CONC 27.6 g/dl (32.0-36.5); MEAN CORPUSCULAR VOLUME 75.4 fl (80.0-96.0); PLATELET COUNT, AUTOMATED 437 10^3/uL (150-450); RED BLOOD COUNT 3.99 10^6/uL (4.00-5.40); RED CELL DISTRIBUTION WIDTH 17.5 % (11.5-14.5); WHITE BLOOD COUNT 11.6 10^3/uL (4.0-10.0)
[2017-11-14 06:34] LABS: ALBUMIN 2.6 GM/DL (3.2-5.2); ALBUMIN/GLOBULIN RATIO 0.72 (1.00-1.93); ALKALINE PHOSPHATASE 59 U/L (45-117); ALT/SGPT 18 U/L (12-78); ANION GAP 1 MEQ/L (8-16); AST/SGOT 14 U/L (7-37); BILIRUBIN,TOTAL 0.3 MG/DL (0.2-1.0); BLOOD UREA NITROGEN 19 MG/DL (7-18); CALCIUM LEVEL 8.6 MG/DL (8.8-10.2); CARBON DIOXIDE LEVEL 39 MEQ/L (21-32); CHLORIDE LEVEL 102 MEQ/L (98-107); CREATININE FOR GFR 0.84 MG/DL (0.55-1.30); GLOMERULAR FILTRATION RATE > 60.0 (>45); GLUCOSE, FASTING 75 MG/DL (70-100); MAGNESIUM LEVEL 1.9 MG/DL (1.8-2.4); POTASSIUM SERUM 3.9 MEQ/L (3.5-5.1); SODIUM LEVEL 142 MEQ/L (136-145); TOTAL PROTEIN 6.2 GM/DL (6.4-8.2)
[2017-11-14] MEDS: SYMBICORT 160/4.5MCG INHALER 6GM INH (07:40)
[2017-11-14] MEDS: TIOTROPIUM INHALER/CAPSULE (SPIRIVA) INH (07:40)
[2017-11-14] MEDS: SENOKOT S TAB PO (09:00)
[2017-11-14] MEDS: LISINOPRIL *2.5 MG* TAB PO (09:00)
[2017-11-14] MEDS: CARVedilol 3.125 MG TAB PO (09:00)
[2017-11-14] MEDS: BISACODYL 5 MG TAB PO (09:00)
[2017-11-14] MEDS: FERROUS GLUCONATE 324 MG TAB PO (09:09)
[2017-11-14] MEDS: ATORVASTATIN 20 MG TAB PO (09:09)
[2017-11-14] MEDS: MULTIVITAMINS/MINERALS THERAP 1 TAB PO (09:10)
[2017-11-14] MEDS: HEPARIN SOD (PORCINE) 5000 UNITS/ML VIAL SQ (09:10)
[2017-11-14] MEDS: FOLIC ACID 1 MG TAB PO (09:10)
[2017-11-14] MEDS: predniSONE 20 MG TAB PO (09:10)
[2017-11-14] MEDS: CitaloPRAM (CeleXA) 20 MG TAB PO (09:10)
[2017-11-14] MEDS: busPIRone 5 MG TAB PO (09:10)
[2017-11-14] MEDS: NICOTINE 14 MG/24 HR TRANSDERMAL TD (09:10)
== END 2017-11-14 11:14 | disposition home or self-care (01) | DRG 191 ==
LOC: M MSPAV 11-10 15:39 → M ED 15:41 → M ED INP 18:26 → M PCU 21:17
DX: J47.1 Bronchiectasis with (acute) exacerbation (principal); J96.11 Chronic respiratory failure with hypoxia; J96.12 Chronic respiratory failure with hypercapnia; I50.32 Chronic diastolic (congestive) heart failure; E87.0 Hyperosmolality and hypernatremia; F17.200 Nicotine dependence, unspecified, uncomplicated; I11.0 Hypertensive heart disease with heart failure; E78.5 Hyperlipidemia, unspecified; F32.9 Major depressive disorder, single episode, unspecified; F41.9 Anxiety disorder, unspecified; Z79.82 Long term (current) use of aspirin; Z79.899 Other long term (current) drug therapy; Z91.040 Latex allergy status; D50.9 Iron deficiency anemia, unspecified; Z85.118 Personal history of other malignant neoplasm of bronchus and lung; D35.01 Benign neoplasm of right adrenal gland; D35.02 Benign neoplasm of left adrenal gland

== ENCOUNTER 2017-11-23 02:17 | Inpatient (IN) | payer OTHER ==
[2017-11-23] MEDS: dexameTHASONE 20 MG/5 ML VIAL (J1100) IV (03:29)
[2017-11-23] MEDS: FUROSEMIDE 100 MG/10 ML VIAL (J1940) IV (03:30)
[2017-11-23 03:35] LABS: BASO # 0.1 10^3/uL (0.0-0.2); BASO % 0.4 % (0.0-1.0); HEMATOCRIT 35.3 % (36.0-47.0); HEMOGLOBIN 9.5 g/dl (12.0-15.5); IMMATURE GRANULOCYTE % 0.3 % (0-3.0); LYMPH % 16.5 % (24.0-44.0); MEAN CORPUSCULAR HEMOGLOBIN 22.2 pg (27.0-33.0); MEAN CORPUSCULAR HGB CONC 26.9 g/dl (32.0-36.5); MEAN CORPUSCULAR VOLUME 82.5 fl (80.0-96.0); MONO % 8.3 % (0.0-5.0); NEUTROPHILS # 8.9 10^3/uL (1.8-7.7); NEUTROPHILS % 74.5 % (36.0-66.0); PLATELET COUNT, AUTOMATED 315 10^3/uL (150-450); RED BLOOD COUNT 4.28 10^6/uL (4.00-5.40); RED CELL DISTRIBUTION WIDTH 21.1 % (11.5-14.5); WHITE BLOOD COUNT 11.9 10^3/uL (4.0-10.0)
[2017-11-23] MEDS: IPRATROPIUM 0.5MG/ALBUTEROL 2.5MG INH SOL UD 3ML (DUONEB)(J7620) NEB ×11 (03:55→23:31)
[2017-11-23 03:58] LABS: ABG BASE EXCESS 7.9 (-2.0-2.0); ABG HCO3 34.1 MEQ/L (22.0-26.0); ABG O2 SATURATION 98.7 % (95.0-99.0); ABG PARTIAL PRESSURE CO2 57.3 mmHg (35.0-45.0); ABG STANDARD HCO3 31.7 MEQ/L (22.0-26.0); ABG TOTAL CO2 35.9 MEQ/L (23.0-31.0); ABG pH (ARTERIAL) 7.393 UNITS (7.350-7.450)
[2017-11-23 04:01] LABS: ANION GAP 2 MEQ/L (8-16); BLOOD UREA NITROGEN 13 MG/DL (7-18); CALCIUM LEVEL 8.6 MG/DL (8.8-10.2); CARBON DIOXIDE LEVEL 38 MEQ/L (21-32); CHLORIDE LEVEL 103 MEQ/L (98-107); CREATININE FOR GFR 0.85 MG/DL (0.55-1.30); GLOMERULAR FILTRATION RATE > 60.0 (>45); GLUCOSE, FASTING 74 MG/DL (70-100); NT-PRO BNP 188 PG/ML (<125); POTASSIUM SERUM 4.6 MEQ/L (3.5-5.1); SODIUM LEVEL 143 MEQ/L (136-145)
[2017-11-23] MEDS ORDERED: ISOVUE-370 76% 100ML VIAL (Q9967) As Ordered (08:06)
[2017-11-23 08:09] LABS: ABG BASE EXCESS 12.9 (-2.0-2.0); ABG HCO3 39.4 MEQ/L (22.0-26.0); ABG O2 SATURATION 97.5 % (95.0-99.0); ABG PARTIAL PRESSURE O2 94.1 mmHg (75.0-100.0); ABG STANDARD HCO3 36.7 MEQ/L (22.0-26.0); ABG TOTAL CO2 41.2 MEQ/L (23.0-31.0); ABG pH (ARTERIAL) 7.427 UNITS (7.350-7.450)
[2017-11-23 08:11] LABS: ABG PARTIAL PRESSURE CO2 61.1 mmHg (35.0-45.0)
[2017-11-23] MEDS ORDERED: IRON POLYSAC (NIFEREX) 150 MG CAP PO (09:00)
[2017-11-23] MEDS: DOCUSATE SODIUM 100 MG CAP PO ×2 (09:14→21:01)
[2017-11-23] MEDS: CARVedilol 3.125 MG TAB PO ×2 (09:15→21:01)
[2017-11-23] MEDS: busPIRone 5 MG TAB PO ×4 (09:15→21:01)
[2017-11-23] MEDS: CitaloPRAM (CeleXA) 20 MG TAB PO (09:15)
[2017-11-23] MEDS: ATORVASTATIN 20 MG TAB PO (09:15)
[2017-11-23] MEDS: FOLIC ACID 1 MG TAB PO (09:15)
[2017-11-23] MEDS: LISINOPRIL *2.5 MG* TAB PO (09:15)
[2017-11-23] MEDS: MULTIVITAMINS/MINERALS THERAP 1 TAB PO (09:17)
[2017-11-23] MEDS: FERROUS GLUCONATE 324 MG TAB PO ×2 (09:17→21:01)
[2017-11-23] MEDS: ASPIRIN 81 MG ENTERIC TAB PO (09:17)
[2017-11-23] MEDS: ENOXAPARIN 40 MG/0.4 ML SYRINGE (J1650) SC (09:17)
[2017-11-23] MEDS ORDERED: methylPREDNISolone INJ 40 MG/1 ML VIAL (J2920) IV (12:00)
[2017-11-23] MEDS: methylPREDNISolone INJ 125 MG/2 ML VIAL (J2930) IV ×2 (12:12→21:01)
[2017-11-23] MEDS: NICOTINE 14 MG/24 HR TRANSDERMAL TD (12:13)
[2017-11-23] MEDS: ACETAMINOPHEN TAB 650MG DOSE (2X325MG) PO (16:21)
[2017-11-24] MEDS ORDERED: SLF 3 ML SYR IV (02:45)
[2017-11-24] MEDS: ACETAMINOPHEN TAB 650MG DOSE (2X325MG) PO (04:30)
[2017-11-24] MEDS: methylPREDNISolone INJ 125 MG/2 ML VIAL (J2930) IV ×2 (04:31→12:51)
[2017-11-24] MEDS: IPRATROPIUM 0.5MG/ALBUTEROL 2.5MG INH SOL UD 3ML (DUONEB)(J7620) NEB ×6 (04:52→20:21)
[2017-11-24] MEDS: SLF 3 ML SYR IV ×3 (05:08→22:00)
[2017-11-24 05:26] LABS: HEMATOCRIT 32.5 % (36.0-47.0); HEMOGLOBIN 8.9 g/dl (12.0-15.5); MEAN CORPUSCULAR HEMOGLOBIN 21.9 pg (27.0-33.0); MEAN CORPUSCULAR HGB CONC 27.4 g/dl (32.0-36.5); MEAN CORPUSCULAR VOLUME 79.9 fl (80.0-96.0); PLATELET COUNT, AUTOMATED 303 10^3/uL (150-450); RED BLOOD COUNT 4.07 10^6/uL (4.00-5.40); RED CELL DISTRIBUTION WIDTH 21.2 % (11.5-14.5); WHITE BLOOD COUNT 10.6 10^3/uL (4.0-10.0)
[2017-11-24 05:55] LABS: ANION GAP 5 MEQ/L (8-16); BLOOD UREA NITROGEN 20 MG/DL (7-18); CALCIUM LEVEL 9.1 MG/DL (8.8-10.2); CARBON DIOXIDE LEVEL 38 MEQ/L (21-32); CHLORIDE LEVEL 98 MEQ/L (98-107); CREATININE FOR GFR 0.92 MG/DL (0.55-1.30); GLOMERULAR FILTRATION RATE > 60.0 (>45); GLUCOSE, FASTING 115 MG/DL (70-100); POTASSIUM SERUM 4.3 MEQ/L (3.5-5.1); SODIUM LEVEL 141 MEQ/L (136-145)
[2017-11-24] MEDS: FERROUS GLUCONATE 324 MG TAB PO ×2 (08:40→20:08)
[2017-11-24] MEDS: ASPIRIN 81 MG ENTERIC TAB PO (08:40)
[2017-11-24] MEDS: FOLIC ACID 1 MG TAB PO (08:40)
[2017-11-24] MEDS: DOCUSATE SODIUM 100 MG CAP PO ×2 (08:40→20:08)
[2017-11-24] MEDS: busPIRone 5 MG TAB PO ×4 (08:40→20:08)
[2017-11-24] MEDS: CitaloPRAM (CeleXA) 20 MG TAB PO (08:40)
[2017-11-24] MEDS: MULTIVITAMINS/MINERALS THERAP 1 TAB PO (08:40)
[2017-11-24] MEDS: LISINOPRIL *2.5 MG* TAB PO (08:41)
[2017-11-24] MEDS: CARVedilol 3.125 MG TAB PO ×2 (08:41→20:20)
[2017-11-24] MEDS: ATORVASTATIN 20 MG TAB PO (08:41)
[2017-11-24] MEDS: ENOXAPARIN 40 MG/0.4 ML SYRINGE (J1650) SC (08:41)
[2017-11-25] MEDS: methylPREDNISolone INJ 125 MG/2 ML VIAL (J2930) IV ×2 (00:52→11:34)
[2017-11-25] MEDS: IPRATROPIUM 0.5MG/ALBUTEROL 2.5MG INH SOL UD 3ML (DUONEB)(J7620) NEB ×7 (02:57→20:36)
[2017-11-25 05:36] LABS: HEMATOCRIT 33.9 % (36.0-47.0); MEAN CORPUSCULAR HGB CONC 26.5 g/dl (32.0-36.5); MEAN CORPUSCULAR VOLUME 82.9 fl (80.0-96.0); PLATELET COUNT, AUTOMATED 266 10^3/uL (150-450); RED BLOOD COUNT 4.09 10^6/uL (4.00-5.40); RED CELL DISTRIBUTION WIDTH 21.8 % (11.5-14.5); WHITE BLOOD COUNT 11.6 10^3/uL (4.0-10.0)
[2017-11-25 05:57] LABS: ANION GAP 5 MEQ/L (8-16); BLOOD UREA NITROGEN 22 MG/DL (7-18); CALCIUM LEVEL 8.7 MG/DL (8.8-10.2); CARBON DIOXIDE LEVEL 37 MEQ/L (21-32); CHLORIDE LEVEL 100 MEQ/L (98-107); CREATININE FOR GFR 0.92 MG/DL (0.55-1.30); GLOMERULAR FILTRATION RATE > 60.0 (>45); GLUCOSE, FASTING 115 MG/DL (70-100); POTASSIUM SERUM 4.3 MEQ/L (3.5-5.1); SODIUM LEVEL 142 MEQ/L (136-145)
[2017-11-25] MEDS: SLF 3 ML SYR IV ×3 (06:28→20:20)
[2017-11-25] MEDS: CitaloPRAM (CeleXA) 20 MG TAB PO (08:15)
[2017-11-25] MEDS: DOCUSATE SODIUM 100 MG CAP PO ×2 (08:15→20:20)
[2017-11-25] MEDS: LISINOPRIL *2.5 MG* TAB PO (08:16)
[2017-11-25] MEDS: ASPIRIN 81 MG ENTERIC TAB PO (08:16)
[2017-11-25] MEDS: FOLIC ACID 1 MG TAB PO (08:16)
[2017-11-25] MEDS: ATORVASTATIN 20 MG TAB PO (08:16)
[2017-11-25] MEDS: FERROUS GLUCONATE 324 MG TAB PO ×2 (08:16→20:19)
[2017-11-25] MEDS: CARVedilol 3.125 MG TAB PO ×2 (08:16→20:20)
[2017-11-25] MEDS: busPIRone 5 MG TAB PO ×4 (08:16→20:19)
[2017-11-25] MEDS: MULTIVITAMINS/MINERALS THERAP 1 TAB PO (08:17)
[2017-11-25] MEDS: ENOXAPARIN 40 MG/0.4 ML SYRINGE (J1650) SC (08:17)
[2017-11-25 11:38] LABS: ABG HCO3 38.4 MEQ/L (22.0-26.0); ABG O2 SATURATION 98.1 % (95.0-99.0); ABG PARTIAL PRESSURE O2 103.8 mmHg (75.0-100.0); ABG STANDARD HCO3 35.7 MEQ/L (22.0-26.0); ABG TOTAL CO2 40.3 MEQ/L (23.0-31.0); ABG pH (ARTERIAL) 7.415 UNITS (7.350-7.450)
[2017-11-25 11:44] LABS: ABG PARTIAL PRESSURE CO2 61.3 mmHg (35.0-45.0)
[2017-11-26] MEDS: methylPREDNISolone INJ 125 MG/2 ML VIAL (J2930) IV ×2 (00:11→12:38)
[2017-11-26] MEDS: IPRATROPIUM 0.5MG/ALBUTEROL 2.5MG INH SOL UD 3ML (DUONEB)(J7620) NEB ×6 (02:24→20:18)
[2017-11-26] MEDS: SLF 3 ML SYR IV ×3 (05:23→20:36)
[2017-11-26 06:08] LABS: HEMATOCRIT 33.4 % (36.0-47.0); HEMOGLOBIN 8.9 g/dl (12.0-15.5); MEAN CORPUSCULAR HEMOGLOBIN 22.1 pg (27.0-33.0); MEAN CORPUSCULAR HGB CONC 26.6 g/dl (32.0-36.5); MEAN CORPUSCULAR VOLUME 82.9 fl (80.0-96.0); PLATELET COUNT, AUTOMATED 252 10^3/uL (150-450); RED BLOOD COUNT 4.03 10^6/uL (4.00-5.40); RED CELL DISTRIBUTION WIDTH 22.3 % (11.5-14.5); WHITE BLOOD COUNT 11.5 10^3/uL (4.0-10.0)
[2017-11-26 06:31] LABS: ANION GAP 4 MEQ/L (8-16); BLOOD UREA NITROGEN 24 MG/DL (7-18); CALCIUM LEVEL 8.8 MG/DL (8.8-10.2); CARBON DIOXIDE LEVEL 37 MEQ/L (21-32); CHLORIDE LEVEL 103 MEQ/L (98-107); CREATININE FOR GFR 0.82 MG/DL (0.55-1.30); GLOMERULAR FILTRATION RATE > 60.0 (>45); GLUCOSE, FASTING 109 MG/DL (70-100); POTASSIUM SERUM 4.9 MEQ/L (3.5-5.1); SODIUM LEVEL 144 MEQ/L (136-145)
[2017-11-26] MEDS: ASPIRIN 81 MG ENTERIC TAB PO (08:10)
[2017-11-26] MEDS: MULTIVITAMINS/MINERALS THERAP 1 TAB PO (08:12)
[2017-11-26] MEDS: DOCUSATE SODIUM 100 MG CAP PO ×2 (08:12→20:36)
[2017-11-26] MEDS: CitaloPRAM (CeleXA) 20 MG TAB PO (08:12)
[2017-11-26] MEDS: LISINOPRIL *2.5 MG* TAB PO (08:12)
[2017-11-26] MEDS: FOLIC ACID 1 MG TAB PO (08:12)
[2017-11-26] MEDS: ATORVASTATIN 20 MG TAB PO (08:13)
[2017-11-26] MEDS: CARVedilol 3.125 MG TAB PO ×2 (08:13→20:36)
[2017-11-26] MEDS: FERROUS GLUCONATE 324 MG TAB PO ×2 (08:13→20:36)
[2017-11-26] MEDS: busPIRone 5 MG TAB PO ×4 (08:13→20:36)
[2017-11-26] MEDS: ENOXAPARIN 40 MG/0.4 ML SYRINGE (J1650) SC (08:14)
[2017-11-27] MEDS: methylPREDNISolone INJ 125 MG/2 ML VIAL (J2930) IV ×2 (00:03→12:26)
[2017-11-27] MEDS: IPRATROPIUM 0.5MG/ALBUTEROL 2.5MG INH SOL UD 3ML (DUONEB)(J7620) NEB ×7 (01:17→19:44)
[2017-11-27] MEDS: SLF 3 ML SYR IV ×3 (05:53→20:51)
[2017-11-27 06:18] LABS: HEMATOCRIT 33.6 % (36.0-47.0); HEMOGLOBIN 9.1 g/dl (12.0-15.5); MEAN CORPUSCULAR HEMOGLOBIN 22.2 pg (27.0-33.0); MEAN CORPUSCULAR HGB CONC 27.1 g/dl (32.0-36.5); PLATELET COUNT, AUTOMATED 225 10^3/uL (150-450); RED CELL DISTRIBUTION WIDTH 22.5 % (11.5-14.5); WHITE BLOOD COUNT 8.9 10^3/uL (4.0-10.0)
[2017-11-27 06:40] LABS: ANION GAP 5 MEQ/L (8-16); BLOOD UREA NITROGEN 27 MG/DL (7-18); CALCIUM LEVEL 8.9 MG/DL (8.8-10.2); CARBON DIOXIDE LEVEL 35 MEQ/L (21-32); CHLORIDE LEVEL 102 MEQ/L (98-107); CREATININE FOR GFR 0.83 MG/DL (0.55-1.30); GLOMERULAR FILTRATION RATE > 60.0 (>45); GLUCOSE, FASTING 167 MG/DL (70-100); POTASSIUM SERUM 4.5 MEQ/L (3.5-5.1); SODIUM LEVEL 142 MEQ/L (136-145)
[2017-11-27] MEDS: DOCUSATE SODIUM 100 MG CAP PO ×2 (08:37→20:50)
[2017-11-27] MEDS: busPIRone 5 MG TAB PO ×4 (08:38→20:50)
[2017-11-27] MEDS: ASPIRIN 81 MG ENTERIC TAB PO (08:38)
[2017-11-27] MEDS: LISINOPRIL *2.5 MG* TAB PO (08:38)
[2017-11-27] MEDS: CitaloPRAM (CeleXA) 20 MG TAB PO (08:38)
[2017-11-27] MEDS: FERROUS GLUCONATE 324 MG TAB PO ×2 (08:38→20:50)
[2017-11-27] MEDS: ATORVASTATIN 20 MG TAB PO (08:38)
[2017-11-27] MEDS: FOLIC ACID 1 MG TAB PO (08:39)
[2017-11-27] MEDS: MULTIVITAMINS/MINERALS THERAP 1 TAB PO (08:39)
[2017-11-27] MEDS: ENOXAPARIN 40 MG/0.4 ML SYRINGE (J1650) SC (08:39)
[2017-11-27] MEDS: CARVedilol 3.125 MG TAB PO ×2 (08:39→20:51)
[2017-11-28] MEDS: IPRATROPIUM 0.5MG/ALBUTEROL 2.5MG INH SOL UD 3ML (DUONEB)(J7620) NEB ×4 (00:37→11:02)
[2017-11-28] MEDS: SLF 3 ML SYR IV (05:35)
[2017-11-28 06:16] LABS: HEMATOCRIT 33.5 % (36.0-47.0); HEMOGLOBIN 9.1 g/dl (12.0-15.5); MEAN CORPUSCULAR HEMOGLOBIN 22.3 pg (27.0-33.0); MEAN CORPUSCULAR HGB CONC 27.2 g/dl (32.0-36.5); MEAN CORPUSCULAR VOLUME 82.1 fl (80.0-96.0); PLATELET COUNT, AUTOMATED 210 10^3/uL (150-450); RED BLOOD COUNT 4.08 10^6/uL (4.00-5.40); RED CELL DISTRIBUTION WIDTH 22.5 % (11.5-14.5); WHITE BLOOD COUNT 9.2 10^3/uL (4.0-10.0)
[2017-11-28 06:34] LABS: ANION GAP 4 MEQ/L (8-16); BLOOD UREA NITROGEN 27 MG/DL (7-18); CALCIUM LEVEL 8.3 MG/DL (8.8-10.2); CARBON DIOXIDE LEVEL 35 MEQ/L (21-32); CHLORIDE LEVEL 103 MEQ/L (98-107); CREATININE FOR GFR 0.91 MG/DL (0.55-1.30); GLOMERULAR FILTRATION RATE > 60.0 (>45); GLUCOSE, FASTING 77 MG/DL (70-100); POTASSIUM SERUM 4.1 MEQ/L (3.5-5.1); SODIUM LEVEL 142 MEQ/L (136-145)
[2017-11-28] MEDS: CitaloPRAM (CeleXA) 20 MG TAB PO (08:01)
[2017-11-28] MEDS: FERROUS GLUCONATE 324 MG TAB PO (08:01)
[2017-11-28] MEDS: ATORVASTATIN 20 MG TAB PO (08:01)
[2017-11-28] MEDS: ASPIRIN 81 MG ENTERIC TAB PO (08:01)
[2017-11-28] MEDS: ENOXAPARIN 40 MG/0.4 ML SYRINGE (J1650) SC (08:01)
[2017-11-28] MEDS: busPIRone 5 MG TAB PO (08:01)
[2017-11-28] MEDS: FOLIC ACID 1 MG TAB PO (08:01)
[2017-11-28] MEDS: MULTIVITAMINS/MINERALS THERAP 1 TAB PO (08:02)
[2017-11-28] MEDS: DOCUSATE SODIUM 100 MG CAP PO (08:02)
[2017-11-28] MEDS: predniSONE 20 MG TAB PO (08:02)
[2017-11-28] MEDS: LISINOPRIL *2.5 MG* TAB PO (08:05)
[2017-11-28] MEDS: CARVedilol 3.125 MG TAB PO (08:05)
[2017-11-28] MEDS: FAMOTIDINE 20 MG TAB PO (09:02)
== END 2017-11-28 11:25 | disposition home health service (06) | DRG 192 ==
LOC: M ED 02:17 → M ED INP 04:53 → M PCU 06:22
DX: J44.1 Chronic obstructive pulmonary disease with (acute) exacerbation (principal); F17.200 Nicotine dependence, unspecified, uncomplicated; I10 Essential (primary) hypertension; I25.10 Atherosclerotic heart disease of native coronary artery without angina pectoris; E78.5 Hyperlipidemia, unspecified; Z79.899 Other long term (current) drug therapy; Z79.82 Long term (current) use of aspirin; Z91.040 Latex allergy status; Z66 Do not resuscitate; Z79.52 Long term (current) use of systemic steroids; Z85.118 Personal history of other malignant neoplasm of bronchus and lung; D50.9 Iron deficiency anemia, unspecified; Z95.2 Presence of prosthetic heart valve; K21.9 Gastro-esophageal reflux disease without esophagitis; F32.9 Major depressive disorder, single episode, unspecified; R91.8 Other nonspecific abnormal finding of lung field

== ENCOUNTER 2017-12-24 15:31 | Inpatient (IN) | payer OTHER, MEDICARE ==
[2017-12-24] MEDS: IPRATROPIUM 0.5MG/ALBUTEROL 2.5MG INH SOL UD 3ML (DUONEB)(J7620) NEB ×5 (16:06→23:31)
[2017-12-24 16:15] LABS: BASO % 0.5 % (0.0-1.0); HEMATOCRIT 35.7 % (36.0-47.0); HEMOGLOBIN 9.7 g/dl (12.0-15.5); IMMATURE GRANULOCYTE % 0.5 % (0-3.0); LYMPH # 1.2 10^3/uL (1.5-4.5); LYMPH % 14.7 % (24.0-44.0); MEAN CORPUSCULAR HGB CONC 27.2 g/dl (32.0-36.5); MEAN CORPUSCULAR VOLUME 88.1 fl (80.0-96.0); MONO # 0.7 10^3/uL (0.0-0.8); MONO % 8.4 % (0.0-5.0); NEUTROPHILS # 6.1 10^3/uL (1.8-7.7); NEUTROPHILS % 75.9 % (36.0-66.0); PLATELET COUNT, AUTOMATED 261 10^3/uL (150-450); RED BLOOD COUNT 4.05 10^6/uL (4.00-5.40); RED CELL DISTRIBUTION WIDTH 21.2 % (11.5-14.5)
[2017-12-24 16:38] LABS: ANION GAP 3 MEQ/L (8-16); BLOOD UREA NITROGEN 11 MG/DL (7-18); CALCIUM LEVEL 8.7 MG/DL (8.8-10.2); CARBON DIOXIDE LEVEL 37 MEQ/L (21-32); CHLORIDE LEVEL 101 MEQ/L (98-107); CREATININE FOR GFR 0.61 MG/DL (0.55-1.30); GLOMERULAR FILTRATION RATE > 60.0 (>45); GLUCOSE, FASTING 111 MG/DL (70-100); POTASSIUM SERUM 4.6 MEQ/L (3.5-5.1); SODIUM LEVEL 141 MEQ/L (136-145)
[2017-12-24 16:47] LABS: LACTIC ACID SEPSIS PROTOCOL 0.6 MMOL/L (0.4-2.0)
[2017-12-24] MEDS: ALBUTEROL SULFATE 2.5 MG/0.5 ML INH NEB SOLN INH (17:05)
[2017-12-24] MEDS ORDERED: ACETAMINOPHEN TAB 650MG DOSE (2X325MG) PO (19:00)
[2017-12-24] MEDS: SYMBICORT 160/4.5MCG INHALER 6GM INH (19:25)
[2017-12-24] MEDS: FERROUS GLUCONATE 324 MG TAB PO (21:00)
[2017-12-24] MEDS: CARVedilol 3.125 MG TAB PO (21:00)
[2017-12-24] MEDS ORDERED: IPRATROPIUM 0.5MG/ALBUTEROL 2.5MG INH SOL UD 3ML (DUONEB)(J7620) INH (21:00)
[2017-12-24] MEDS: busPIRone 10 MG TAB PO (23:34)
[2017-12-24] MEDS: DOCUSATE SODIUM 100 MG CAP PO (23:35)
[2017-12-24] MEDS: HEPARIN SOD (PORCINE) 5000 UNITS/ML VIAL SC (23:36)
[2017-12-24] MEDS: NICOTINE 14 MG/24 HR TRANSDERMAL TD (23:36)
[2017-12-25] MEDS: IPRATROPIUM 0.5MG/ALBUTEROL 2.5MG INH SOL UD 3ML (DUONEB)(J7620) NEB ×6 (04:18→19:36)
[2017-12-25] MEDS: HEPARIN SOD (PORCINE) 5000 UNITS/ML VIAL SC ×3 (06:03→20:56)
[2017-12-25 08:54] LABS: ANION GAP 5 MEQ/L (8-16); BLOOD UREA NITROGEN 19 MG/DL (7-18); CALCIUM LEVEL 9.4 MG/DL (8.8-10.2); CARBON DIOXIDE LEVEL 34 MEQ/L (21-32); CHLORIDE LEVEL 103 MEQ/L (98-107); GLOMERULAR FILTRATION RATE > 60.0 (>45); GLUCOSE, FASTING 155 MG/DL (70-100); POTASSIUM SERUM 4.3 MEQ/L (3.5-5.1); SODIUM LEVEL 142 MEQ/L (136-145)
[2017-12-25 08:55] LABS: HEMATOCRIT 32.9 % (36.0-47.0); HEMOGLOBIN 9.3 g/dl (12.0-15.5); MEAN CORPUSCULAR HEMOGLOBIN 24.2 pg (27.0-33.0); MEAN CORPUSCULAR HGB CONC 28.3 g/dl (32.0-36.5); MEAN CORPUSCULAR VOLUME 85.5 fl (80.0-96.0); PLATELET COUNT, AUTOMATED 285 10^3/uL (150-450); RED BLOOD COUNT 3.85 10^6/uL (4.00-5.40); RED CELL DISTRIBUTION WIDTH 21.1 % (11.5-14.5); WHITE BLOOD COUNT 9.9 10^3/uL (4.0-10.0)
[2017-12-25] MEDS: SYMBICORT 160/4.5MCG INHALER 6GM INH ×2 (09:00→21:00)
[2017-12-25] MEDS: LISINOPRIL *2.5 MG* TAB PO (09:54)
[2017-12-25] MEDS: CitaloPRAM (CeleXA) 20 MG TAB PO (09:54)
[2017-12-25] MEDS: CARVedilol 3.125 MG TAB PO ×2 (09:54→20:57)
[2017-12-25] MEDS: ASPIRIN 81 MG ENTERIC TAB PO (09:55)
[2017-12-25] MEDS: DOCUSATE SODIUM 100 MG CAP PO ×2 (09:55→20:57)
[2017-12-25] MEDS: MULTIVITAMINS/MINERALS THERAP 1 TAB PO (09:55)
[2017-12-25] MEDS: ATORVASTATIN 20 MG TAB PO (09:55)
[2017-12-25] MEDS: FERROUS GLUCONATE 324 MG TAB PO ×2 (09:55→20:57)
[2017-12-25] MEDS: FOLIC ACID 1 MG TAB PO (09:55)
[2017-12-25] MEDS: busPIRone 10 MG TAB PO ×4 (09:55→20:57)
[2017-12-25] MEDS: methylPREDNISolone INJ 40 MG/1 ML VIAL (J2920) IV (12:06)
[2017-12-25 17:24] LABS: KETONE, URINE AUTO RFX NEGATIVE (NEGATIVE); LEUKOCYTE ESTERASE UR AUTO RFX NEGATIVE (NEGATIVE); MUCUS, URINE RFX SMALL (NEGATIVE); NITRITE, URINE AUTO RFX NEGATIVE (NEGATIVE); RBC, URINE AUTO RFX 0 /HPF (0-3); SPECIFIC GRAVITY UR AUTO RFX 1.013 (1.002-1.035); SQUAM EPITHELIAL CELL UR AURFX 1 /HPF (0-6); WBC, URINE AUTO RFX 1 /HPF (0-3)
[2017-12-25] MEDS: NICOTINE 14 MG/24 HR TRANSDERMAL TD (20:57)
[2017-12-26] MEDS: methylPREDNISolone INJ 40 MG/1 ML VIAL (J2920) IV ×3 (00:08→23:35)
[2017-12-26] MEDS: IPRATROPIUM 0.5MG/ALBUTEROL 2.5MG INH SOL UD 3ML (DUONEB)(J7620) NEB ×5 (01:32→20:00)
[2017-12-26] MEDS: HEPARIN SOD (PORCINE) 5000 UNITS/ML VIAL SC ×3 (05:05→21:58)
[2017-12-26] MEDS: SYMBICORT 160/4.5MCG INHALER 6GM INH ×2 (07:10→21:56)
[2017-12-26 08:34] LABS: HEMATOCRIT 34.6 % (36.0-47.0); HEMOGLOBIN 9.7 g/dl (12.0-15.5); MEAN CORPUSCULAR HEMOGLOBIN 24.1 pg (27.0-33.0); MEAN CORPUSCULAR VOLUME 86.1 fl (80.0-96.0); PLATELET COUNT, AUTOMATED 307 10^3/uL (150-450); RED BLOOD COUNT 4.02 10^6/uL (4.00-5.40); RED CELL DISTRIBUTION WIDTH 20.9 % (11.5-14.5); WHITE BLOOD COUNT 10.2 10^3/uL (4.0-10.0)
[2017-12-26 08:57] LABS: ANION GAP 4 MEQ/L (8-16); BLOOD UREA NITROGEN 20 MG/DL (7-18); CALCIUM LEVEL 9.2 MG/DL (8.8-10.2); CARBON DIOXIDE LEVEL 35 MEQ/L (21-32); CHLORIDE LEVEL 101 MEQ/L (98-107); CREATININE FOR GFR 0.71 MG/DL (0.55-1.30); GLOMERULAR FILTRATION RATE > 60.0 (>45); GLUCOSE, FASTING 163 MG/DL (70-100); POTASSIUM SERUM 4.5 MEQ/L (3.5-5.1); SODIUM LEVEL 140 MEQ/L (136-145)
[2017-12-26] MEDS: MULTIVITAMINS/MINERALS THERAP 1 TAB PO (09:14)
[2017-12-26] MEDS: CitaloPRAM (CeleXA) 20 MG TAB PO (09:14)
[2017-12-26] MEDS: DOCUSATE SODIUM 100 MG CAP PO ×2 (09:14→21:55)
[2017-12-26] MEDS: busPIRone 10 MG TAB PO ×4 (09:14→21:57)
[2017-12-26] MEDS: ATORVASTATIN 20 MG TAB PO (09:14)
[2017-12-26] MEDS: FOLIC ACID 1 MG TAB PO (09:15)
[2017-12-26] MEDS: FERROUS GLUCONATE 324 MG TAB PO ×2 (09:15→21:55)
[2017-12-26] MEDS: CARVedilol 3.125 MG TAB PO ×2 (09:17→21:57)
[2017-12-26] MEDS: LISINOPRIL *2.5 MG* TAB PO (09:17)
[2017-12-26] MEDS ORDERED: MORPHINE 4 MG/ML 1ML VIAL/SYRINGE (J2270) As Ordered (14:15)
[2017-12-26] MEDS ORDERED: ASPIRIN 81 MG CHEW TABLET PO (14:15)
[2017-12-26] MEDS: MORPHINE 4 MG/ML 1ML VIAL/SYRINGE (J2270) IV (14:22)
[2017-12-26] MEDS: ASPIRIN 81 MG CHEW TABLET PO (14:34)
[2017-12-26] MEDS ORDERED: ISOVUE-370 76% 100ML VIAL (Q9967) As Ordered (14:49)
[2017-12-26 15:11] LABS: TROPONIN I < 0.02 NG/ML (< 0.10)
[2017-12-26] MEDS ORDERED: MORPHINE 4 MG/ML 1ML VIAL/SYRINGE (J2270) IV (15:15)
[2017-12-26] MEDS: **hydrALAZINE HCL** 25 MG TAB PO (16:36)
[2017-12-26] MEDS: NICOTINE 14 MG/24 HR TRANSDERMAL TD (21:58)
[2017-12-26 23:05] LABS: TROPONIN I < 0.02 NG/ML (< 0.10)
[2017-12-27] MEDS: IPRATROPIUM 0.5MG/ALBUTEROL 2.5MG INH SOL UD 3ML (DUONEB)(J7620) NEB ×8 (03:04→23:24)
[2017-12-27] MEDS: HEPARIN SOD (PORCINE) 5000 UNITS/ML VIAL SC ×3 (05:45→22:25)
[2017-12-27 06:21] LABS: HEMATOCRIT 35.7 % (36.0-47.0); MEAN CORPUSCULAR HEMOGLOBIN 24.1 pg (27.0-33.0); PLATELET COUNT, AUTOMATED 328 10^3/uL (150-450); RED BLOOD COUNT 4.15 10^6/uL (4.00-5.40); RED CELL DISTRIBUTION WIDTH 20.6 % (11.5-14.5); WHITE BLOOD COUNT 9.5 10^3/uL (4.0-10.0)
[2017-12-27 06:49] LABS: ALBUMIN 2.7 GM/DL (3.2-5.2); ALBUMIN/GLOBULIN RATIO 0.75 (1.00-1.93); ALKALINE PHOSPHATASE 69 U/L (45-117); ALT/SGPT 18 U/L (12-78); ANION GAP 4 MEQ/L (8-16); AST/SGOT 12 U/L (7-37); BILIRUBIN,TOTAL 0.1 MG/DL (0.2-1.0); BLOOD UREA NITROGEN 21 MG/DL (7-18); CALCIUM LEVEL 9.1 MG/DL (8.8-10.2); CARBON DIOXIDE LEVEL 36 MEQ/L (21-32); CHLORIDE LEVEL 99 MEQ/L (98-107); CREATININE FOR GFR 0.76 MG/DL (0.55-1.30); GLOMERULAR FILTRATION RATE > 60.0 (>45); GLUCOSE, FASTING 136 MG/DL (70-100); POTASSIUM SERUM 4.4 MEQ/L (3.5-5.1); SODIUM LEVEL 139 MEQ/L (136-145); TOTAL PROTEIN 6.3 GM/DL (6.4-8.2); TROPONIN I < 0.02 NG/ML (< 0.10)
[2017-12-27] MEDS: SYMBICORT 160/4.5MCG INHALER 6GM INH ×2 (07:31→20:09)
[2017-12-27] MEDS: DOCUSATE SODIUM 100 MG CAP PO ×2 (08:52→22:26)
[2017-12-27] MEDS: ASPIRIN 81 MG ENTERIC TAB PO (08:52)
[2017-12-27] MEDS: busPIRone 10 MG TAB PO ×4 (08:52→22:26)
[2017-12-27] MEDS: FERROUS GLUCONATE 324 MG TAB PO ×2 (08:52→22:26)
[2017-12-27] MEDS: FOLIC ACID 1 MG TAB PO (08:53)
[2017-12-27] MEDS: CitaloPRAM (CeleXA) 20 MG TAB PO (08:53)
[2017-12-27] MEDS: MULTIVITAMINS/MINERALS THERAP 1 TAB PO (08:53)
[2017-12-27] MEDS: ATORVASTATIN 20 MG TAB PO (08:53)
[2017-12-27] MEDS: LISINOPRIL *2.5 MG* TAB PO (08:55)
[2017-12-27] MEDS: CARVedilol 3.125 MG TAB PO ×2 (08:56→21:00)
[2017-12-27] MEDS ORDERED: INCRUSE ELLIPTA (PATIENT'S OWN MED) INH (09:00)
[2017-12-27] MEDS: methylPREDNISolone INJ 40 MG/1 ML VIAL (J2920) IV (12:52)
[2017-12-27] MEDS: NICOTINE 14 MG/24 HR TRANSDERMAL TD (22:26)
[2017-12-28] MEDS: methylPREDNISolone INJ 40 MG/1 ML VIAL (J2920) IV ×3 (00:05→23:38)
[2017-12-28] MEDS: IPRATROPIUM 0.5MG/ALBUTEROL 2.5MG INH SOL UD 3ML (DUONEB)(J7620) NEB ×6 (02:00→23:17)
[2017-12-28] MEDS: HEPARIN SOD (PORCINE) 5000 UNITS/ML VIAL SC ×3 (05:28→21:06)
[2017-12-28 06:44] LABS: HEMATOCRIT 35.2 % (36.0-47.0); HEMOGLOBIN 9.7 g/dl (12.0-15.5); MEAN CORPUSCULAR HEMOGLOBIN 23.9 pg (27.0-33.0); MEAN CORPUSCULAR HGB CONC 27.6 g/dl (32.0-36.5); MEAN CORPUSCULAR VOLUME 86.7 fl (80.0-96.0); PLATELET COUNT, AUTOMATED 322 10^3/uL (150-450); RED BLOOD COUNT 4.06 10^6/uL (4.00-5.40); RED CELL DISTRIBUTION WIDTH 20.3 % (11.5-14.5); WHITE BLOOD COUNT 9.8 10^3/uL (4.0-10.0)
[2017-12-28 07:17] LABS: ALBUMIN 2.4 GM/DL (3.2-5.2); ALBUMIN/GLOBULIN RATIO 0.71 (1.00-1.93); ALKALINE PHOSPHATASE 77 U/L (45-117); ALT/SGPT 19 U/L (12-78); ANION GAP 5 MEQ/L (8-16); AST/SGOT 12 U/L (7-37); BILIRUBIN,TOTAL 0.2 MG/DL (0.2-1.0); BLOOD UREA NITROGEN 25 MG/DL (7-18); CALCIUM LEVEL 8.7 MG/DL (8.8-10.2); CARBON DIOXIDE LEVEL 35 MEQ/L (21-32); CHLORIDE LEVEL 101 MEQ/L (98-107); CREATININE FOR GFR 0.78 MG/DL (0.55-1.30); GLOMERULAR FILTRATION RATE > 60.0 (>45); GLUCOSE, FASTING 178 MG/DL (70-100); POTASSIUM SERUM 4.5 MEQ/L (3.5-5.1); SODIUM LEVEL 141 MEQ/L (136-145); TOTAL PROTEIN 5.8 GM/DL (6.4-8.2)
[2017-12-28] MEDS: busPIRone 10 MG TAB PO ×4 (08:27→21:06)
[2017-12-28] MEDS: DOCUSATE SODIUM 100 MG CAP PO ×2 (08:27→21:06)
[2017-12-28] MEDS: ATORVASTATIN 20 MG TAB PO (08:27)
[2017-12-28] MEDS: CitaloPRAM (CeleXA) 20 MG TAB PO (08:27)
[2017-12-28] MEDS: MULTIVITAMINS/MINERALS THERAP 1 TAB PO (08:27)
[2017-12-28] MEDS: FOLIC ACID 1 MG TAB PO (08:28)
[2017-12-28] MEDS: FERROUS GLUCONATE 324 MG TAB PO ×2 (08:28→21:06)
[2017-12-28] MEDS: LISINOPRIL *2.5 MG* TAB PO (08:31)
[2017-12-28] MEDS: CARVedilol 3.125 MG TAB PO ×2 (08:32→20:59)
[2017-12-28] MEDS: SYMBICORT 160/4.5MCG INHALER 6GM INH ×2 (09:00→19:41)
[2017-12-28] MEDS: NICOTINE 14 MG/24 HR TRANSDERMAL TD (21:06)
[2017-12-29] MEDS: ALPRAZolam 0.25 MG TAB PO (01:13)
[2017-12-29] MEDS: IPRATROPIUM 0.5MG/ALBUTEROL 2.5MG INH SOL UD 3ML (DUONEB)(J7620) NEB ×7 (01:34→23:57)
[2017-12-29] MEDS: HEPARIN SOD (PORCINE) 5000 UNITS/ML VIAL SC ×3 (05:08→21:58)
[2017-12-29 06:14] LABS: HEMATOCRIT 34.4 % (36.0-47.0); HEMOGLOBIN 9.5 g/dl (12.0-15.5); MEAN CORPUSCULAR HEMOGLOBIN 24.2 pg (27.0-33.0); MEAN CORPUSCULAR HGB CONC 27.6 g/dl (32.0-36.5); MEAN CORPUSCULAR VOLUME 87.8 fl (80.0-96.0); PLATELET COUNT, AUTOMATED 306 10^3/uL (150-450); RED BLOOD COUNT 3.92 10^6/uL (4.00-5.40); RED CELL DISTRIBUTION WIDTH 20.4 % (11.5-14.5); WHITE BLOOD COUNT 9.9 10^3/uL (4.0-10.0)
[2017-12-29 06:49] LABS: ALBUMIN 2.5 GM/DL (3.2-5.2); ALBUMIN/GLOBULIN RATIO 0.78 (1.00-1.93); ALKALINE PHOSPHATASE 80 U/L (45-117); ALT/SGPT 17 U/L (12-78); ANION GAP 3 MEQ/L (8-16); AST/SGOT 11 U/L (7-37); BILIRUBIN,TOTAL 0.2 MG/DL (0.2-1.0); BLOOD UREA NITROGEN 24 MG/DL (7-18); CALCIUM LEVEL 8.8 MG/DL (8.8-10.2); CARBON DIOXIDE LEVEL 37 MEQ/L (21-32); CHLORIDE LEVEL 100 MEQ/L (98-107); CREATININE FOR GFR 0.76 MG/DL (0.55-1.30); GLOMERULAR FILTRATION RATE > 60.0 (>45); GLUCOSE, FASTING 171 MG/DL (70-100); POTASSIUM SERUM 4.3 MEQ/L (3.5-5.1); SODIUM LEVEL 140 MEQ/L (136-145); TOTAL PROTEIN 5.7 GM/DL (6.4-8.2)
[2017-12-29] MEDS: DOCUSATE SODIUM 100 MG CAP PO ×2 (08:42→21:56)
[2017-12-29] MEDS: FERROUS GLUCONATE 324 MG TAB PO ×2 (08:42→21:56)
[2017-12-29] MEDS: ATORVASTATIN 20 MG TAB PO (08:42)
[2017-12-29] MEDS: FOLIC ACID 1 MG TAB PO (08:43)
[2017-12-29] MEDS: MULTIVITAMINS/MINERALS THERAP 1 TAB PO (08:43)
[2017-12-29] MEDS: CitaloPRAM (CeleXA) 20 MG TAB PO (08:43)
[2017-12-29] MEDS: busPIRone 10 MG TAB PO ×4 (08:43→21:56)
[2017-12-29] MEDS: LISINOPRIL *2.5 MG* TAB PO (08:43)
[2017-12-29] MEDS: predniSONE 20 MG TAB PO (08:43)
[2017-12-29] MEDS: CARVedilol 3.125 MG TAB PO ×2 (08:43→21:56)
[2017-12-29] MEDS: SYMBICORT 160/4.5MCG INHALER 6GM INH ×2 (09:46→21:09)
[2017-12-29] MEDS: NICOTINE 14 MG/24 HR TRANSDERMAL TD (21:57)
[2017-12-30] MEDS: IPRATROPIUM 0.5MG/ALBUTEROL 2.5MG INH SOL UD 3ML (DUONEB)(J7620) NEB ×4 (02:00→13:24)
[2017-12-30] MEDS: HEPARIN SOD (PORCINE) 5000 UNITS/ML VIAL SC (05:01)
[2017-12-30 05:41] LABS: HEMATOCRIT 34.9 % (36.0-47.0); HEMOGLOBIN 9.6 g/dl (12.0-15.5); MEAN CORPUSCULAR HEMOGLOBIN 23.9 pg (27.0-33.0); MEAN CORPUSCULAR HGB CONC 27.5 g/dl (32.0-36.5); MEAN CORPUSCULAR VOLUME 86.8 fl (80.0-96.0); PLATELET COUNT, AUTOMATED 317 10^3/uL (150-450); RED BLOOD COUNT 4.02 10^6/uL (4.00-5.40); RED CELL DISTRIBUTION WIDTH 20.3 % (11.5-14.5); WHITE BLOOD COUNT 12.2 10^3/uL (4.0-10.0)
[2017-12-30 06:21] LABS: ALBUMIN 2.6 GM/DL (3.2-5.2); ALBUMIN/GLOBULIN RATIO 0.79 (1.00-1.93); ALKALINE PHOSPHATASE 74 U/L (45-117); ALT/SGPT 19 U/L (12-78); ANION GAP 1 MEQ/L (8-16); AST/SGOT 13 U/L (7-37); BILIRUBIN,TOTAL 0.2 MG/DL (0.2-1.0); BLOOD UREA NITROGEN 22 MG/DL (7-18); CALCIUM LEVEL 8.7 MG/DL (8.8-10.2); CARBON DIOXIDE LEVEL 38 MEQ/L (21-32); CHLORIDE LEVEL 99 MEQ/L (98-107); CREATININE FOR GFR 0.75 MG/DL (0.55-1.30); GLOMERULAR FILTRATION RATE > 60.0 (>45); GLUCOSE, FASTING 102 MG/DL (70-100); POTASSIUM SERUM 4.1 MEQ/L (3.5-5.1); SODIUM LEVEL 138 MEQ/L (136-145); TOTAL PROTEIN 5.9 GM/DL (6.4-8.2)
[2017-12-30] MEDS: SYMBICORT 160/4.5MCG INHALER 6GM INH (08:43)
[2017-12-30] MEDS: FAMOTIDINE 20 MG TAB PO (09:00)
[2017-12-30] MEDS: CitaloPRAM (CeleXA) 20 MG TAB PO (09:00)
[2017-12-30] MEDS: ALPRAZolam 0.25 MG TAB PO (09:00)
[2017-12-30] MEDS: busPIRone 10 MG TAB PO (09:00)
[2017-12-30] MEDS: DOCUSATE SODIUM 100 MG CAP PO (09:00)
[2017-12-30] MEDS: FERROUS GLUCONATE 324 MG TAB PO (09:00)
[2017-12-30] MEDS: FOLIC ACID 1 MG TAB PO (09:00)
[2017-12-30] MEDS: MULTIVITAMINS/MINERALS THERAP 1 TAB PO (09:00)
[2017-12-30] MEDS: predniSONE 20 MG TAB PO (09:00)
[2017-12-30] MEDS: ASPIRIN 81 MG ENTERIC TAB PO (09:00)
[2017-12-30] MEDS: ATORVASTATIN 20 MG TAB PO (09:01)
[2017-12-30] MEDS: LISINOPRIL *2.5 MG* TAB PO (09:03)
[2017-12-30] MEDS: CARVedilol 3.125 MG TAB PO (09:05)
== END 2017-12-30 14:07 | disposition home or self-care (01) | DRG 191 ==
LOC: M MSPAV 12-25 02:55 → M ED 15:31 → M ED INP 18:59
DX: J44.1 Chronic obstructive pulmonary disease with (acute) exacerbation (principal); J96.11 Chronic respiratory failure with hypoxia; Z85.118 Personal history of other malignant neoplasm of bronchus and lung; I10 Essential (primary) hypertension; E78.5 Hyperlipidemia, unspecified; F17.200 Nicotine dependence, unspecified, uncomplicated; Z66 Do not resuscitate; F32.9 Major depressive disorder, single episode, unspecified; F41.9 Anxiety disorder, unspecified; Z79.82 Long term (current) use of aspirin; Z79.899 Other long term (current) drug therapy; Z91.040 Latex allergy status; Z99.81 Dependence on supplemental oxygen; K21.9 Gastro-esophageal reflux disease without esophagitis; I25.10 Atherosclerotic heart disease of native coronary artery without angina pectoris; Z95.2 Presence of prosthetic heart valve

== ENCOUNTER 2018-01-10 20:24 | Inpatient (IN) | payer OTHER ==
[2018-01-10] MEDS ORDERED: FERROUS GLUCONATE 324 MG TAB PO (21:00)
[2018-01-10] MEDS ORDERED: CARVedilol 3.125 MG TAB PO (21:00)
[2018-01-10] MEDS: dexameTHASONE 20 MG/5 ML VIAL (J1100) IV (21:54)
[2018-01-10] MEDS: IPRATROPIUM 0.5MG/ALBUTEROL 2.5MG INH SOL UD 3ML (DUONEB)(J7620) NEB ×3 (21:55→22:18)
[2018-01-10 21:58] LABS: BASO % 0.1 % (0.0-1.0); HEMATOCRIT 35.8 % (36.0-47.0); HEMOGLOBIN 10.1 g/dl (12.0-15.5); IMMATURE GRANULOCYTE % 0.5 % (0-3.0); LYMPH # 0.6 10^3/uL (1.5-4.5); LYMPH % 4.6 % (24.0-44.0); MEAN CORPUSCULAR HGB CONC 28.2 g/dl (32.0-36.5); MEAN CORPUSCULAR VOLUME 85.2 fl (80.0-96.0); MONO # 0.5 10^3/uL (0.0-0.8); MONO % 3.4 % (0.0-5.0); NEUTROPHILS # 12.6 10^3/uL (1.8-7.7); NEUTROPHILS % 91.4 % (36.0-66.0); PLATELET COUNT, AUTOMATED 275 10^3/uL (150-450); WHITE BLOOD COUNT 13.8 10^3/uL (4.0-10.0)
[2018-01-10] MEDS: HEPARIN SOD (PORCINE) 5000 UNITS/ML VIAL SC (22:00)
[2018-01-10 22:04] LABS: ABG BASE EXCESS 8.4 (-2.0-2.0); ABG O2 SATURATION 96.7 % (95.0-99.0); ABG PARTIAL PRESSURE CO2 52.1 mmHg (35.0-45.0); ABG PARTIAL PRESSURE O2 82.9 mmHg (75.0-100.0); ABG STANDARD HCO3 32.2 MEQ/L (22.0-26.0); ABG TOTAL CO2 35.6 MEQ/L (23.0-31.0); ABG pH (ARTERIAL) 7.432 UNITS (7.350-7.450)
[2018-01-10 22:26] LABS: ANION GAP 4 MEQ/L (8-16); BLOOD UREA NITROGEN 19 MG/DL (7-18); CALCIUM LEVEL 8.7 MG/DL (8.8-10.2); CARBON DIOXIDE LEVEL 35 MEQ/L (21-32); CHLORIDE LEVEL 104 MEQ/L (98-107); CREATININE FOR GFR 0.82 MG/DL (0.55-1.30); GLOMERULAR FILTRATION RATE > 60.0 (>45); GLUCOSE, FASTING 101 MG/DL (70-100); POTASSIUM SERUM 4.2 MEQ/L (3.5-5.1); SODIUM LEVEL 143 MEQ/L (136-145)
[2018-01-11] MEDS ORDERED: DOCUSATE SODIUM 100 MG CAP PO
[2018-01-11] MEDS ORDERED: FAMOTIDINE 20 MG TAB PO
[2018-01-11] MEDS ORDERED: ACETAMINOPHEN TAB 650MG DOSE (2X325MG) PO
[2018-01-11] MEDS: DOXYCYCLINE HYCLATE 100 MG TAB PO ×3 (02:53→21:20)
[2018-01-11] MEDS: methylPREDNISolone INJ 40 MG/1 ML VIAL (J2920) IV ×3 (02:53→17:27)
[2018-01-11] MEDS: SENOKOT S TAB PO ×3 (02:53→21:18)
[2018-01-11] MEDS: busPIRone 10 MG TAB PO ×5 (02:53→21:21)
[2018-01-11] MEDS: NICOTINE 14 MG/24 HR TRANSDERMAL TD ×2 (03:37→21:21)
[2018-01-11] MEDS: SYMBICORT 160/4.5MCG INHALER 6GM INH ×3 (05:33→20:37)
[2018-01-11] MEDS: HEPARIN SOD (PORCINE) 5000 UNITS/ML VIAL SC ×3 (05:51→21:20)
[2018-01-11] MEDS: IPRATROPIUM 0.5MG/ALBUTEROL 2.5MG INH SOL UD 3ML (DUONEB)(J7620) NEB ×6 (05:51→20:26)
[2018-01-11] MEDS: CitaloPRAM (CeleXA) 20 MG TAB PO (10:04)
[2018-01-11] MEDS: ATORVASTATIN 20 MG TAB PO (10:05)
[2018-01-11] MEDS: CARVedilol 3.125 MG TAB PO ×2 (10:05→21:19)
[2018-01-11] MEDS: FOLIC ACID 1 MG TAB PO (10:05)
[2018-01-11] MEDS: FERROUS GLUCONATE 324 MG TAB PO ×2 (10:06→21:18)
[2018-01-11] MEDS: LISINOPRIL *2.5 MG* TAB PO (10:06)
[2018-01-11] MEDS: ALPRAZolam 0.25 MG TAB PO (10:06)
[2018-01-11] MEDS: MULTIVITAMINS/MINERALS THERAP 1 TAB PO (10:06)
[2018-01-12] MEDS: methylPREDNISolone INJ 40 MG/1 ML VIAL (J2920) IV ×3 (00:41→21:01)
[2018-01-12] MEDS: HEPARIN SOD (PORCINE) 5000 UNITS/ML VIAL SC ×3 (05:57→21:02)
[2018-01-12 06:40] LABS: HEMATOCRIT 31.6 % (36.0-47.0); MEAN CORPUSCULAR HGB CONC 28.5 g/dl (32.0-36.5); MEAN CORPUSCULAR VOLUME 84.3 fl (80.0-96.0); PLATELET COUNT, AUTOMATED 280 10^3/uL (150-450); RED BLOOD COUNT 3.75 10^6/uL (4.00-5.40); RED CELL DISTRIBUTION WIDTH 19.1 % (11.5-14.5)
[2018-01-12 07:02] LABS: ANION GAP 6 MEQ/L (8-16); BLOOD UREA NITROGEN 25 MG/DL (7-18); CARBON DIOXIDE LEVEL 33 MEQ/L (21-32); CHLORIDE LEVEL 104 MEQ/L (98-107); CREATININE FOR GFR 0.79 MG/DL (0.55-1.30); GLOMERULAR FILTRATION RATE > 60.0 (>45); GLUCOSE, FASTING 155 MG/DL (70-100); POTASSIUM SERUM 4.2 MEQ/L (3.5-5.1); SODIUM LEVEL 143 MEQ/L (136-145)
[2018-01-12] MEDS: SYMBICORT 160/4.5MCG INHALER 6GM INH ×2 (07:23→20:40)
[2018-01-12] MEDS: IPRATROPIUM 0.5MG/ALBUTEROL 2.5MG INH SOL UD 3ML (DUONEB)(J7620) NEB ×4 (07:24→20:40)
[2018-01-12] MEDS: ATORVASTATIN 20 MG TAB PO (10:19)
[2018-01-12] MEDS: DOXYCYCLINE HYCLATE 100 MG TAB PO ×2 (10:20→21:00)
[2018-01-12] MEDS: busPIRone 10 MG TAB PO ×4 (10:20→21:00)
[2018-01-12] MEDS: SENOKOT S TAB PO ×2 (10:20→21:00)
[2018-01-12] MEDS: LISINOPRIL *2.5 MG* TAB PO (10:20)
[2018-01-12] MEDS: CitaloPRAM (CeleXA) 20 MG TAB PO (10:20)
[2018-01-12] MEDS: FOLIC ACID 1 MG TAB PO (10:20)
[2018-01-12] MEDS: MULTIVITAMINS/MINERALS THERAP 1 TAB PO (10:21)
[2018-01-12] MEDS: CARVedilol 3.125 MG TAB PO ×2 (10:21→21:01)
[2018-01-12] MEDS: ALPRAZolam 0.25 MG TAB PO ×3 (10:25→21:00)
[2018-01-12] MEDS: FERROUS GLUCONATE 324 MG TAB PO ×2 (10:25→21:00)
[2018-01-12] MEDS: NICOTINE 14 MG/24 HR TRANSDERMAL TD (21:02)
[2018-01-13] MEDS: ALPRAZolam 0.25 MG TAB PO (03:00)
[2018-01-13] MEDS: IPRATROPIUM 0.5MG/ALBUTEROL 2.5MG INH SOL UD 3ML (DUONEB)(J7620) NEB ×3 (03:11→11:27)
[2018-01-13] MEDS: HEPARIN SOD (PORCINE) 5000 UNITS/ML VIAL SC (06:11)
[2018-01-13 06:34] LABS: HEMATOCRIT 33.2 % (36.0-47.0); HEMOGLOBIN 9.2 g/dl (12.0-15.5); MEAN CORPUSCULAR HEMOGLOBIN 24.1 pg (27.0-33.0); MEAN CORPUSCULAR HGB CONC 27.7 g/dl (32.0-36.5); MEAN CORPUSCULAR VOLUME 86.9 fl (80.0-96.0); PLATELET COUNT, AUTOMATED 263 10^3/uL (150-450); RED BLOOD COUNT 3.82 10^6/uL (4.00-5.40); RED CELL DISTRIBUTION WIDTH 18.9 % (11.5-14.5); WHITE BLOOD COUNT 14.3 10^3/uL (4.0-10.0)
[2018-01-13 06:57] LABS: ANION GAP 3 MEQ/L (8-16); BLOOD UREA NITROGEN 27 MG/DL (7-18); CALCIUM LEVEL 8.7 MG/DL (8.8-10.2); CARBON DIOXIDE LEVEL 35 MEQ/L (21-32); CHLORIDE LEVEL 104 MEQ/L (98-107); CREATININE FOR GFR 0.89 MG/DL (0.55-1.30); GLOMERULAR FILTRATION RATE > 60.0 (>45); GLUCOSE, FASTING 181 MG/DL (70-100); POTASSIUM SERUM 4.7 MEQ/L (3.5-5.1); SODIUM LEVEL 142 MEQ/L (136-145)
[2018-01-13] MEDS: SYMBICORT 160/4.5MCG INHALER 6GM INH (08:56)
[2018-01-13] MEDS: CitaloPRAM (CeleXA) 20 MG TAB PO (09:28)
[2018-01-13] MEDS: FERROUS GLUCONATE 324 MG TAB PO (09:28)
[2018-01-13] MEDS: methylPREDNISolone INJ 40 MG/1 ML VIAL (J2920) IV (09:28)
[2018-01-13] MEDS: busPIRone 10 MG TAB PO ×2 (09:28→12:19)
[2018-01-13] MEDS: DOXYCYCLINE HYCLATE 100 MG TAB PO (09:28)
[2018-01-13] MEDS: ASPIRIN 81 MG ENTERIC TAB PO (09:28)
[2018-01-13] MEDS: SENOKOT S TAB PO (09:28)
[2018-01-13] MEDS: ATORVASTATIN 20 MG TAB PO (09:28)
[2018-01-13] MEDS: FOLIC ACID 1 MG TAB PO (09:31)
[2018-01-13] MEDS: CARVedilol 3.125 MG TAB PO (09:31)
[2018-01-13] MEDS: LISINOPRIL *2.5 MG* TAB PO (09:31)
[2018-01-13] MEDS: MULTIVITAMINS/MINERALS THERAP 1 TAB PO (09:31)
== END 2018-01-13 13:50 | disposition home or self-care (01) | DRG 191 ==
LOC: M ED INP 23:57 → M MS4PR 01-11 02:20 → M ED 20:24
DX: J44.1 Chronic obstructive pulmonary disease with (acute) exacerbation (principal); J96.11 Chronic respiratory failure with hypoxia; I10 Essential (primary) hypertension; E78.5 Hyperlipidemia, unspecified; F17.210 Nicotine dependence, cigarettes, uncomplicated; Z85.118 Personal history of other malignant neoplasm of bronchus and lung; Z66 Do not resuscitate; F41.9 Anxiety disorder, unspecified; F32.9 Major depressive disorder, single episode, unspecified; Z79.899 Other long term (current) drug therapy; Z79.82 Long term (current) use of aspirin; Z91.040 Latex allergy status; D50.9 Iron deficiency anemia, unspecified; R91.8 Other nonspecific abnormal finding of lung field; I25.10 Atherosclerotic heart disease of native coronary artery without angina pectoris; K21.9 Gastro-esophageal reflux disease without esophagitis

== ENCOUNTER 2018-01-24 19:15 | Inpatient (IN) | payer OTHER ==
[2018-01-24] MEDS: IPRATROPIUM 0.5MG/ALBUTEROL 2.5MG INH SOL UD 3ML (DUONEB)(J7620) NEB (20:06)
[2018-01-24] MEDS: ALBUTEROL SULFATE 2.5 MG/0.5 ML INH NEB SOLN INH (20:06)
[2018-01-24 20:08] LABS: BASO % 0.2 % (0.0-1.0); HEMATOCRIT 38.7 % (36.0-47.0); HEMOGLOBIN 10.8 g/dl (12.0-15.5); IMMATURE GRANULOCYTE % 0.6 % (0-3.0); LYMPH # 1.2 10^3/uL (1.5-4.5); LYMPH % 10.9 % (24.0-44.0); MEAN CORPUSCULAR HEMOGLOBIN 23.8 pg (27.0-33.0); MEAN CORPUSCULAR HGB CONC 27.9 g/dl (32.0-36.5); MEAN CORPUSCULAR VOLUME 85.4 fl (80.0-96.0); MONO # 0.7 10^3/uL (0.0-0.8); MONO % 6.1 % (0.0-5.0); NEUTROPHILS # 9.3 10^3/uL (1.8-7.7); NEUTROPHILS % 82.2 % (36.0-66.0); PLATELET COUNT, AUTOMATED 312 10^3/uL (150-450); RED BLOOD COUNT 4.53 10^6/uL (4.00-5.40); RED CELL DISTRIBUTION WIDTH 17.4 % (11.5-14.5); WHITE BLOOD COUNT 11.3 10^3/uL (4.0-10.0)
[2018-01-24 20:09] LABS: ABG BASE EXCESS 10.4 (-2.0-2.0); ABG HCO3 37.3 MEQ/L (22.0-26.0); ABG O2 SATURATION 99.2 % (95.0-99.0); ABG PARTIAL PRESSURE O2 151.3 mmHg (75.0-100.0); ABG STANDARD HCO3 34.2 MEQ/L (22.0-26.0); ABG TOTAL CO2 39.1 MEQ/L (23.0-31.0); ABG pH (ARTERIAL) 7.398 UNITS (7.350-7.450)
[2018-01-24 20:10] LABS: ABG PARTIAL PRESSURE CO2 61.8 mmHg (35.0-45.0)
[2018-01-24 20:51] LABS: ALBUMIN 3.2 GM/DL (3.2-5.2); ALKALINE PHOSPHATASE 82 U/L (45-117); ALT/SGPT 25 U/L (12-78); ANION GAP 3 MEQ/L (8-16); AST/SGOT 12 U/L (7-37); BILIRUBIN,DIRECT < 0.1 MG/DL (0.0-0.2); BILIRUBIN,TOTAL 0.2 MG/DL (0.2-1.0); BLOOD UREA NITROGEN 23 MG/DL (7-18); CALCIUM LEVEL 9.3 MG/DL (8.8-10.2); CARBON DIOXIDE LEVEL 42 MEQ/L (21-32); CHLORIDE LEVEL 97 MEQ/L (98-107); CPK CREATINE PHOSPHOKINASE 34 U/L (26-192); CREATININE FOR GFR 1.08 MG/DL (0.55-1.30); GLOMERULAR FILTRATION RATE 54.2 (>45); GLUCOSE, FASTING 72 MG/DL (70-100); MB/CK RELATIVE INDEX 4.12 (< OR =4); NT-PRO BNP 265 PG/ML (<125); POTASSIUM SERUM 4.9 MEQ/L (3.5-5.1); SODIUM LEVEL 142 MEQ/L (136-145); TOTAL PROTEIN 6.4 GM/DL (6.4-8.2); TROPONIN I < 0.02 NG/ML (< 0.10)
[2018-01-24 21:59] LABS: INFLUENZA A AMPLIFICATION NEGATIVE (NEGATIVE); INFLUENZA B AMPLIFICATION NEGATIVE (NEGATIVE)
[2018-01-25 00:10] LABS: C REACTIVE PROTEIN QUANTITATIV < 0.30 MG/DL (0.00-0.30)
[2018-01-25] MEDS: HEPARIN SOD (PORCINE) 5000 UNITS/ML VIAL SQ ×3 (00:45→21:05)
[2018-01-25] MEDS: methylPREDNISolone INJ 125 MG/2 ML VIAL (J2930) IV ×4 (00:45→23:56)
[2018-01-25] MEDS: AZITHROMYCIN INJ 500 MG, VIAL MATE ADAPTER 1 EACH in D5W 250 ML IV ×2 (00:45→23:57)
[2018-01-25] MEDS: NICOTINE 14 MG/24 HR TRANSDERMAL TD ×2 (00:45→21:09)
[2018-01-25] MEDS: IPRATROPIUM 0.5MG/ALBUTEROL 2.5MG INH SOL UD 3ML (DUONEB)(J7620) NEB ×7 (01:33→21:48)
[2018-01-25 02:29] LABS: CPK CREATINE PHOSPHOKINASE 27 U/L (26-192); MB/CK RELATIVE INDEX 4.44 (< OR =4); TROPONIN I < 0.02 NG/ML (< 0.10)
[2018-01-25 06:34] LABS: HEMATOCRIT 35.1 % (36.0-47.0); HEMOGLOBIN 9.8 g/dl (12.0-15.5); MEAN CORPUSCULAR HGB CONC 27.9 g/dl (32.0-36.5); MEAN CORPUSCULAR VOLUME 85.8 fl (80.0-96.0); PLATELET COUNT, AUTOMATED 259 10^3/uL (150-450); RED BLOOD COUNT 4.09 10^6/uL (4.00-5.40); RED CELL DISTRIBUTION WIDTH 17.5 % (11.5-14.5); WHITE BLOOD COUNT 8.9 10^3/uL (4.0-10.0)
[2018-01-25 06:44] LABS: ANION GAP 1 MEQ/L (8-16); BLOOD UREA NITROGEN 27 MG/DL (7-18); CALCIUM LEVEL 9.2 MG/DL (8.8-10.2); CARBON DIOXIDE LEVEL 43 MEQ/L (21-32); CHLORIDE LEVEL 97 MEQ/L (98-107); CREATININE FOR GFR 0.97 MG/DL (0.55-1.30); GLOMERULAR FILTRATION RATE > 60.0 (>45); GLUCOSE, FASTING 176 MG/DL (70-100); MAGNESIUM LEVEL 2.2 MG/DL (1.8-2.4); POTASSIUM SERUM 4.8 MEQ/L (3.5-5.1); SODIUM LEVEL 141 MEQ/L (136-145)
[2018-01-25] MEDS: SYMBICORT 160/4.5MCG INHALER 6GM INH ×2 (07:45→19:43)
[2018-01-25] MEDS: TIOTROPIUM INHALER/CAPSULE (SPIRIVA) INH (07:50)
[2018-01-25] MEDS: ATORVASTATIN 20 MG TAB PO (08:13)
[2018-01-25] MEDS: FERROUS GLUCONATE 324 MG TAB PO ×2 (08:13→21:04)
[2018-01-25] MEDS: CitaloPRAM (CeleXA) 20 MG TAB PO (08:14)
[2018-01-25] MEDS: MULTIVITAMINS/MINERALS THERAP 1 TAB PO (08:14)
[2018-01-25] MEDS: SENOKOT S TAB PO ×2 (08:14→21:04)
[2018-01-25] MEDS: FAMOTIDINE 20 MG TAB PO ×2 (08:14→21:05)
[2018-01-25] MEDS: FOLIC ACID 1 MG TAB PO (08:14)
[2018-01-25] MEDS: busPIRone 10 MG TAB PO ×4 (08:14→21:04)
[2018-01-25] MEDS: CARVedilol 3.125 MG TAB PO ×2 (08:55→21:05)
[2018-01-25] MEDS: LISINOPRIL *2.5 MG* TAB PO (10:18)
[2018-01-26] MEDS: IPRATROPIUM 0.5MG/ALBUTEROL 2.5MG INH SOL UD 3ML (DUONEB)(J7620) NEB ×6 (00:56→20:17)
[2018-01-26] MEDS: hydrOXYzine 25 MG TAB PO (01:27)
[2018-01-26] MEDS: SLF 3 ML SYR IV ×3 (05:30→20:33)
[2018-01-26 05:31] LABS: HEMATOCRIT 31.1 % (36.0-47.0); HEMOGLOBIN 8.9 g/dl (12.0-15.5); MEAN CORPUSCULAR HEMOGLOBIN 24.3 pg (27.0-33.0); MEAN CORPUSCULAR HGB CONC 28.6 g/dl (32.0-36.5); MEAN CORPUSCULAR VOLUME 84.7 fl (80.0-96.0); PLATELET COUNT, AUTOMATED 266 10^3/uL (150-450); RED BLOOD COUNT 3.67 10^6/uL (4.00-5.40); RED CELL DISTRIBUTION WIDTH 17.5 % (11.5-14.5)
[2018-01-26 05:40] LABS: ANION GAP 2 MEQ/L (8-16); BLOOD UREA NITROGEN 34 MG/DL (7-18); CALCIUM LEVEL 8.9 MG/DL (8.8-10.2); CARBON DIOXIDE LEVEL 39 MEQ/L (21-32); CHLORIDE LEVEL 99 MEQ/L (98-107); CREATININE FOR GFR 0.78 MG/DL (0.55-1.30); GLOMERULAR FILTRATION RATE > 60.0 (>45); GLUCOSE, FASTING 111 MG/DL (70-100); MAGNESIUM LEVEL 2.2 MG/DL (1.8-2.4); POTASSIUM SERUM 4.4 MEQ/L (3.5-5.1); SODIUM LEVEL 140 MEQ/L (136-145)
[2018-01-26] MEDS: ATORVASTATIN 20 MG TAB PO (08:03)
[2018-01-26] MEDS: methylPREDNISolone INJ 125 MG/2 ML VIAL (J2930) IV ×3 (08:03→23:35)
[2018-01-26] MEDS: FOLIC ACID 1 MG TAB PO (08:04)
[2018-01-26] MEDS: MULTIVITAMINS/MINERALS THERAP 1 TAB PO (08:04)
[2018-01-26] MEDS: CitaloPRAM (CeleXA) 20 MG TAB PO (08:04)
[2018-01-26] MEDS: SENOKOT S TAB PO ×2 (08:04→20:31)
[2018-01-26] MEDS: FAMOTIDINE 20 MG TAB PO ×2 (08:04→20:32)
[2018-01-26] MEDS: busPIRone 10 MG TAB PO ×4 (08:04→20:31)
[2018-01-26] MEDS: CARVedilol 3.125 MG TAB PO ×2 (08:04→20:31)
[2018-01-26] MEDS: LISINOPRIL *2.5 MG* TAB PO (08:04)
[2018-01-26] MEDS: FERROUS GLUCONATE 324 MG TAB PO ×2 (08:04→20:31)
[2018-01-26] MEDS: HEPARIN SOD (PORCINE) 5000 UNITS/ML VIAL SQ ×2 (08:05→20:33)
[2018-01-26] MEDS: TIOTROPIUM INHALER/CAPSULE (SPIRIVA) INH (08:14)
[2018-01-26] MEDS: SYMBICORT 160/4.5MCG INHALER 6GM INH ×2 (08:14→20:18)
[2018-01-26] MEDS: ACETAMINOPHEN TAB 650MG DOSE (2X325MG) PO (13:05)
[2018-01-26] MEDS: NICOTINE 14 MG/24 HR TRANSDERMAL TD (20:33)
[2018-01-26] MEDS: AZITHROMYCIN INJ 500 MG, VIAL MATE ADAPTER 1 EACH in D5W 250 ML IV (23:35)
[2018-01-27] MEDS: ONDANSETRON 4MG/2ML VIAL (J2405) IV (00:12)
[2018-01-27] MEDS: IPRATROPIUM 0.5MG/ALBUTEROL 2.5MG INH SOL UD 3ML (DUONEB)(J7620) NEB ×4 (01:50→15:01)
[2018-01-27] MEDS: ACETAMINOPHEN TAB 650MG DOSE (2X325MG) PO (03:49)
[2018-01-27] MEDS: SLF 3 ML SYR IV ×3 (03:49→13:51)
[2018-01-27 05:24] LABS: HEMATOCRIT 30.9 % (36.0-47.0); HEMOGLOBIN 8.9 g/dl (12.0-15.5); MEAN CORPUSCULAR HEMOGLOBIN 24.3 pg (27.0-33.0); MEAN CORPUSCULAR HGB CONC 28.8 g/dl (32.0-36.5); MEAN CORPUSCULAR VOLUME 84.2 fl (80.0-96.0); PLATELET COUNT, AUTOMATED 267 10^3/uL (150-450); RED BLOOD COUNT 3.67 10^6/uL (4.00-5.40); RED CELL DISTRIBUTION WIDTH 17.6 % (11.5-14.5)
[2018-01-27 05:36] LABS: ANION GAP 3 MEQ/L (8-16); BLOOD UREA NITROGEN 24 MG/DL (7-18); CALCIUM LEVEL 8.4 MG/DL (8.8-10.2); CARBON DIOXIDE LEVEL 37 MEQ/L (21-32); CHLORIDE LEVEL 100 MEQ/L (98-107); CREATININE FOR GFR 0.77 MG/DL (0.55-1.30); GLOMERULAR FILTRATION RATE > 60.0 (>45); GLUCOSE, FASTING 125 MG/DL (70-100); MAGNESIUM LEVEL 1.9 MG/DL (1.8-2.4); POTASSIUM SERUM 4.5 MEQ/L (3.5-5.1); SODIUM LEVEL 140 MEQ/L (136-145)
[2018-01-27] MEDS: SYMBICORT 160/4.5MCG INHALER 6GM INH (09:08)
[2018-01-27] MEDS: TIOTROPIUM INHALER/CAPSULE (SPIRIVA) INH (09:10)
[2018-01-27] MEDS: methylPREDNISolone INJ 125 MG/2 ML VIAL (J2930) IV (09:12)
[2018-01-27] MEDS: LISINOPRIL *2.5 MG* TAB PO (09:15)
[2018-01-27] MEDS: FOLIC ACID 1 MG TAB PO (09:15)
[2018-01-27] MEDS: ATORVASTATIN 20 MG TAB PO (09:15)
[2018-01-27] MEDS: busPIRone 10 MG TAB PO ×2 (09:15→13:51)
[2018-01-27] MEDS: FAMOTIDINE 20 MG TAB PO (09:16)
[2018-01-27] MEDS: FERROUS GLUCONATE 324 MG TAB PO (09:16)
[2018-01-27] MEDS: MULTIVITAMINS/MINERALS THERAP 1 TAB PO (09:16)
[2018-01-27] MEDS: SENOKOT S TAB PO (09:16)
[2018-01-27] MEDS: CitaloPRAM (CeleXA) 20 MG TAB PO (09:16)
[2018-01-27] MEDS: CARVedilol 3.125 MG TAB PO (09:16)
[2018-01-27] MEDS: HEPARIN SOD (PORCINE) 5000 UNITS/ML VIAL SQ (09:18)
[2018-01-27] MEDS: ASPIRIN 81 MG ENTERIC TAB PO (09:25)
== END 2018-01-27 15:17 | disposition hospice, home (50) | DRG 190 ==
LOC: M ED INP 23:58 → M PCU 01-25 13:06 → M ED 19:15
DX: J44.1 Chronic obstructive pulmonary disease with (acute) exacerbation (principal); J18.9 Pneumonia, unspecified organism; J96.11 Chronic respiratory failure with hypoxia; F41.9 Anxiety disorder, unspecified; D50.9 Iron deficiency anemia, unspecified; I10 Essential (primary) hypertension; Z66 Do not resuscitate; F17.210 Nicotine dependence, cigarettes, uncomplicated; Z85.118 Personal history of other malignant neoplasm of bronchus and lung; Z91.15 Patient's noncompliance with renal dialysis; Z91.040 Latex allergy status; F32.9 Major depressive disorder, single episode, unspecified; Z79.82 Long term (current) use of aspirin; Z79.899 Other long term (current) drug therapy; E78.5 Hyperlipidemia, unspecified

== ENCOUNTER → 2018-02-04 | Outpatient (CLI) | payer OTHER | LOC: M SLEEP 19:39 | DX: G47.61 Periodic limb movement disorder (principal); R06.83 Snoring; G47.33 Obstructive sleep apnea (adult) (pediatric) ==

== ENCOUNTER 2018-02-05 20:38 | Inpatient (IN) | payer OTHER ==
[2018-02-05] MEDS ORDERED: dexameTHASONE 20 MG/5 ML VIAL (J1100) IV (20:45)
[2018-02-05] MEDS: dexameTHASONE 20 MG/5 ML VIAL (J1100) IV (21:15)
[2018-02-05 21:31] LABS: BASO % 0.2 % (0.0-1.0); HEMATOCRIT 34.8 % (36.0-47.0); HEMOGLOBIN 9.7 g/dl (12.0-15.5); IMMATURE GRANULOCYTE % 0.6 % (0-3.0); LYMPH # 0.9 10^3/uL (1.5-4.5); MEAN CORPUSCULAR HEMOGLOBIN 24.2 pg (27.0-33.0); MEAN CORPUSCULAR HGB CONC 27.9 g/dl (32.0-36.5); MEAN CORPUSCULAR VOLUME 86.8 fl (80.0-96.0); MONO # 0.6 10^3/uL (0.0-0.8); MONO % 5.2 % (0.0-5.0); NEUTROPHILS # 10.6 10^3/uL (1.8-7.7); PLATELET COUNT, AUTOMATED 293 10^3/uL (150-450); RED BLOOD COUNT 4.01 10^6/uL (4.00-5.40); RED CELL DISTRIBUTION WIDTH 16.2 % (11.5-14.5); WHITE BLOOD COUNT 12.2 10^3/uL (4.0-10.0)
[2018-02-05 21:37] LABS: ABG BASE EXCESS 10.5 (-2.0-2.0); ABG HCO3 37.5 MEQ/L (22.0-26.0); ABG O2 SATURATION 99.5 % (95.0-99.0); ABG PARTIAL PRESSURE CO2 63.6 mmHg (35.0-45.0); ABG PARTIAL PRESSURE O2 191.4 mmHg (75.0-100.0); ABG STANDARD HCO3 34.3 MEQ/L (22.0-26.0); ABG TOTAL CO2 39.4 MEQ/L (23.0-31.0); ABG pH (ARTERIAL) 7.388 UNITS (7.350-7.450)
[2018-02-05] MEDS: IPRATROPIUM 0.5MG/ALBUTEROL 2.5MG INH SOL UD 3ML (DUONEB)(J7620) NEB ×3 (21:43→21:44)
[2018-02-05 21:49] LABS: ANION GAP 1 MEQ/L (8-16); BLOOD UREA NITROGEN 19 MG/DL (7-18); CALCIUM LEVEL 8.3 MG/DL (8.8-10.2); CARBON DIOXIDE LEVEL 41 MEQ/L (21-32); CHLORIDE LEVEL 98 MEQ/L (98-107); CREATININE FOR GFR 0.76 MG/DL (0.55-1.30); GLOMERULAR FILTRATION RATE > 60.0 (>45); GLUCOSE, FASTING 126 MG/DL (70-100); POTASSIUM SERUM 4.3 MEQ/L (3.5-5.1); SODIUM LEVEL 140 MEQ/L (136-145)
[2018-02-05] MEDS: NS 500 ML IV (22:09)
[2018-02-05] MEDS ORDERED: CORTISPORIN OTIC SOLN 10 ML BTL AD (22:30)
[2018-02-05] MEDS ORDERED: DOCUSATE SODIUM 100 MG CAP PO (23:15)
[2018-02-05] MEDS ORDERED: busPIRone 10 MG TAB PO (23:15)
[2018-02-05] MEDS ORDERED: CIPROFLOXACIN 400 MG in APPROPRIATE DILUENT 1 EA IV (23:30)
[2018-02-06] MEDS: ALPRAZolam 0.5 MG TAB PO ×3 (00:34→20:04)
[2018-02-06] MEDS: CARVedilol 3.125 MG TAB PO ×4 (00:34→20:04)
[2018-02-06] MEDS: CIPROFLOXACIN 200 MG in APPROPRIATE DILUENT 1 EA IV ×3 (00:35→23:40)
[2018-02-06] MEDS: NICOTINE 14 MG/24 HR TRANSDERMAL TD (00:35)
[2018-02-06] MEDS ORDERED: CIPROFLOXACIN 250 MG TAB PO (06:00)
[2018-02-06 06:12] LABS: BASO % 0.2 % (0.0-1.0); HEMATOCRIT 32.3 % (36.0-47.0); IMMATURE GRANULOCYTE % 0.8 % (0-3.0); LYMPH # 0.7 10^3/uL (1.5-4.5); LYMPH % 6.2 % (24.0-44.0); MEAN CORPUSCULAR HEMOGLOBIN 24.2 pg (27.0-33.0); MEAN CORPUSCULAR HGB CONC 27.9 g/dl (32.0-36.5); MEAN CORPUSCULAR VOLUME 86.8 fl (80.0-96.0); MONO # 0.2 10^3/uL (0.0-0.8); NEUTROPHILS # 10.5 10^3/uL (1.8-7.7); NEUTROPHILS % 90.8 % (36.0-66.0); PLATELET COUNT, AUTOMATED 286 10^3/uL (150-450); RED BLOOD COUNT 3.72 10^6/uL (4.00-5.40); RED CELL DISTRIBUTION WIDTH 16.2 % (11.5-14.5); WHITE BLOOD COUNT 11.5 10^3/uL (4.0-10.0)
[2018-02-06 06:36] LABS: ANION GAP 1 MEQ/L (8-16); BLOOD UREA NITROGEN 17 MG/DL (7-18); CALCIUM LEVEL 8.3 MG/DL (8.8-10.2); CARBON DIOXIDE LEVEL 38 MEQ/L (21-32); CHLORIDE LEVEL 102 MEQ/L (98-107); CREATININE FOR GFR 0.76 MG/DL (0.55-1.30); GLOMERULAR FILTRATION RATE > 60.0 (>45); GLUCOSE, FASTING 217 MG/DL (70-100); POTASSIUM SERUM 4.9 MEQ/L (3.5-5.1); SODIUM LEVEL 141 MEQ/L (136-145)
[2018-02-06] MEDS: SYMBICORT 160/4.5MCG INHALER 6GM INH ×2 (08:30→21:00)
[2018-02-06] MEDS: FOLIC ACID 1 MG TAB PO (08:34)
[2018-02-06] MEDS: ATORVASTATIN 20 MG TAB PO (08:34)
[2018-02-06] MEDS: methylPREDNISolone INJ 125 MG/2 ML VIAL (J2930) IV ×2 (08:34→20:03)
[2018-02-06] MEDS: FUROSEMIDE 20 MG TAB PO (08:34)
[2018-02-06] MEDS: CitaloPRAM (CeleXA) 20 MG TAB PO (08:34)
[2018-02-06] MEDS: MULTIVITAMINS/MINERALS THERAP 1 TAB PO (08:34)
[2018-02-06] MEDS: ENOXAPARIN 40 MG/0.4 ML SYRINGE (J1650) SC (08:42)
[2018-02-06] MEDS: LISINOPRIL *2.5 MG* TAB PO (08:43)
[2018-02-06] MEDS: busPIRone 10 MG TAB PO ×2 (11:46→17:16)
[2018-02-06] MEDS: IPRATROPIUM 0.5MG/ALBUTEROL 2.5MG INH SOL UD 3ML (DUONEB)(J7620) NEB ×3 (13:13→23:28)
[2018-02-07] MEDS: ALPRAZolam 0.5 MG TAB PO ×2 (02:05→10:10)
[2018-02-07 05:47] LABS: BASO % 0.1 % (0.0-1.0); HEMATOCRIT 31.4 % (36.0-47.0); HEMOGLOBIN 8.9 g/dl (12.0-15.5); IMMATURE GRANULOCYTE % 0.6 % (0-3.0); LYMPH # 0.8 10^3/uL (1.5-4.5); LYMPH % 4.8 % (24.0-44.0); MEAN CORPUSCULAR HEMOGLOBIN 24.1 pg (27.0-33.0); MEAN CORPUSCULAR HGB CONC 28.3 g/dl (32.0-36.5); MEAN CORPUSCULAR VOLUME 85.1 fl (80.0-96.0); MONO # 0.7 10^3/uL (0.0-0.8); MONO % 4.4 % (0.0-5.0); NEUTROPHILS # 14.8 10^3/uL (1.8-7.7); NEUTROPHILS % 90.1 % (36.0-66.0); PLATELET COUNT, AUTOMATED 274 10^3/uL (150-450); RED BLOOD COUNT 3.69 10^6/uL (4.00-5.40); WHITE BLOOD COUNT 16.5 10^3/uL (4.0-10.0)
[2018-02-07 06:08] LABS: ANION GAP -1 MEQ/L (8-16); BLOOD UREA NITROGEN 22 MG/DL (7-18); CALCIUM LEVEL 8.6 MG/DL (8.8-10.2); CARBON DIOXIDE LEVEL 42 MEQ/L (21-32); CHLORIDE LEVEL 98 MEQ/L (98-107); CREATININE FOR GFR 0.79 MG/DL (0.55-1.30); GLOMERULAR FILTRATION RATE > 60.0 (>45); GLUCOSE, FASTING 234 MG/DL (70-100); POTASSIUM SERUM 4.3 MEQ/L (3.5-5.1); SODIUM LEVEL 139 MEQ/L (136-145)
[2018-02-07] MEDS: methylPREDNISolone INJ 125 MG/2 ML VIAL (J2930) IV ×2 (07:25→10:09)
[2018-02-07] MEDS: SYMBICORT 160/4.5MCG INHALER 6GM INH (09:58)
[2018-02-07] MEDS: LISINOPRIL *2.5 MG* TAB PO (10:10)
[2018-02-07] MEDS: ENOXAPARIN 40 MG/0.4 ML SYRINGE (J1650) SC (10:10)
[2018-02-07] MEDS: ATORVASTATIN 20 MG TAB PO (10:11)
[2018-02-07] MEDS: CitaloPRAM (CeleXA) 20 MG TAB PO (10:11)
[2018-02-07] MEDS: FOLIC ACID 1 MG TAB PO (10:11)
[2018-02-07] MEDS: CARVedilol 3.125 MG TAB PO (10:11)
[2018-02-07] MEDS: MULTIVITAMINS/MINERALS THERAP 1 TAB PO (10:11)
[2018-02-07] MEDS: FUROSEMIDE 20 MG TAB PO (10:12)
[2018-02-07] MEDS: CIPROFLOXACIN 200 MG in APPROPRIATE DILUENT 1 EA IV (12:50)
[2018-02-07] MEDS: busPIRone 10 MG TAB PO (12:50)
== END 2018-02-07 16:25 | disposition left against medical advice (07) | DRG 191 ==
LOC: M ED 20:38 → M ED INP 22:38 → M MSPAV 23:16
DX: J44.1 Chronic obstructive pulmonary disease with (acute) exacerbation (principal); J96.11 Chronic respiratory failure with hypoxia; J96.12 Chronic respiratory failure with hypercapnia; C34.90 Malignant neoplasm of unspecified part of unspecified bronchus or lung; Z91.5 Personal history of self-harm; Z66 Do not resuscitate; Z79.899 Other long term (current) drug therapy; F17.200 Nicotine dependence, unspecified, uncomplicated; Z91.040 Latex allergy status; I10 Essential (primary) hypertension; F41.9 Anxiety disorder, unspecified; F32.9 Major depressive disorder, single episode, unspecified